=== PATIENT | male | born 1940 | race Caucasian/White ===

== ENCOUNTER 2016-09-02 16:53 | Inpatient (IN) ==
--- NOTE | 2016-09-02 18:05 | Emergency Department Note ---
Disposition Clinical Impression: Ascites, Cirrhosis, Renal failure, CHF (congestive heart failure), Anemia, Obesity, Frail elderly, Symptomatic anemia, Dyspnea, Atrial fibrillation Disposition: Admitted As Inpatient Condition: Fair General Adult HPI - General Chief complaint: ED Recheck/Abnormal Lab/Rx Stated complaint: low hgb Time Seen by Provider: 09/02/16 17:02 Source: patient, family, EMS Limitations: no limitations - History of Present Illness HPI Narrative: 76-year-old male with a history of renal failure on dialysis reports in the ED from the [place]. There is concern the patient has a very low hemoglobin as well as apparent CHF. The patient also has a known history of appetite C, liver failure , and diabetes. He patient reports he became short of breath and felt very very weak today, he could only do activity for a few minutes before having to stop and breathe. The patient sought medical attention went to the [facility] and was transferred here. The patient denies any chest pain. He does not take diuretic medication. He still makes urine. The patient has had no abdominal pain vomiting diarrhea or syncope. There is no history of difficulty moving the arms or legs independently. No confusion or slurred speech or strokelike concerns. The patient is not known to be anticoagulated. He denies any bloody or black material in the stool. The patient describes leg swelling as well as abdominal swelling. The patient does not usually wear oxygen. The patient does not have any history of asthma or COPD. Per reports the patient has a history of atrial fibrillation. The patient describes one loose stool today which not bloody or blackened. The patient had a recent stress test at this facility which was essentially negative. His ejection fraction was 56%. Pain Scale: 4 - Related Data Home Medications Medication Instructions Recorded Confirmed Amlodipine [Norvasc] 5 mg PO HS 08/03/15 09/02/16 Insulin ASPART [NovoLOG] 18 unit SQ TIDAC 08/03/15 09/02/16 Insulin Glargine,Hum.rec.anlog 50 unit SQ HS 08/03/15 09/02/16 [Lantus Solostar] Levothyroxine [Synthroid] 125 mcg PO QAM 08/03/15 09/02/16 Lisinopril [Zestril] 20 mg PO DAILY 08/03/15 09/02/16 Renal Vitamin [Renal Caps Softgel] 1 mg PO DAILY 08/03/15 09/02/16 Calcium Acetate [Phos-LO] 1,334 mg PO TIDWM 08/31/15 09/02/16 Terazosin [Hytrin] 10 mg PO HS 08/31/15 09/02/16 Aspirin 325 mg PO DAILY 09/02/16 09/02/16 Azelastine 0.1% Nasal [place] 2 spray NS BID 09/02/16 09/02/16 [Astelin] Capsaicin [Arthritis Pain Relief] 1 appl TP 5XD PRN 09/02/16 09/02/16 Eucerin Creme 1 appl TP BID 09/02/16 09/02/16 Gabapentin [Neurontin] 200 mg PO AD 09/02/16 09/02/16 Insulin ASPART [NovoLOG] 5 unit SQ QPM 09/02/16 09/02/16 Omeprazole [PriLOSEC] 20 mg PO DAILY 09/02/16 09/02/16 Propranolol [Inderal] 10 mg PO BID 09/02/16 09/02/16 Allergies Allergy/AdvReac Type Severity Reaction Status Date / Time venom-honey bee Allergy Severe Anaphylaxis Verified 08/03/15 10:53 [bee venom (honey bee)] felodipine AdvReac LACK OF Verified 08/03/15 10:53 THERAPY gabapentin AdvReac See Verified 09/02/16 17:02 Comments isosorbide AdvReac se Verified 09/02/16 18:52 metformin AdvReac KIDNEY Verified 08/03/15 10:53 DAMAGE metoprolol AdvReac LACK OF Verified 08/03/15 10:53 THERAPY All systems ED: reviewed and negative except as stated. Past Medical History - Past Medical History Medical history: Reports: cancer, cirrhosis, diabetes, dialysis, hepatitis, hypertension, liver disease, other Surgical history: Reports: appendectomy, orthopedic, other, other (Dialysis shunt, TURP) Psychiatric history: Reports: no psych history, other - Social History Smoking Status: Current every day smoker Smokeless Tobacco Status: No Alcohol use: Reports: none Drug use: Reports: none Physical Exam - General Limitations: no limitations General appearance: alert, in no apparent distress - Head Head exam: atraumatic, normocephalic, normal inspection - Eye Eye exam: Present: normal appearance, PERRL, EOMI - ENT ENT exam: normal exam, normal oropharynx, mucous membranes moist - Neck Neck exam: Present: normal inspection, full ROM, trachea midline - Chest Chest inspection: Present: symmetric chest wall rise. Absent: tenderness - Respiratory Respiratory exam: Present: normal lung sounds bilaterally. Absent: respiratory distress, prolonged expiratory phase - Cardiovascular Cardiovascular exam: Present: regular rate, irregular rhythm - Abdominal Exam Abdominal exam: Present: soft, Non-Tender, normal bowel sounds, ascites. Absent : tenderness, distention, guarding, rebound, rigidity - Extremities Exam Extremities exam: Present: full ROM, normal capillary refill, pedal edema, other (Chronic venous stasis changes). Absent: tenderness, joint swelling, calf tenderness - Expanded Lower Extremity Exam Lower leg exam: Absent: Homans' sign Neurovascular/Tendon exam: Present: normal capillary refill, extremity cold to touch. Absent: motor deficit, sensory deficit, tendon deficit, pallor - Back Exam Back exam: Present: normal inspection, full ROM, other. Absent: tenderness, CVA tenderness (R), CVA tenderness (L), vertebral tenderness - Neurological Exam Neurological exam: Present: alert, oriented X3, CN II-XII intact. Absent: motor sensory deficit - Psychiatric Psychiatric exam: Present: normal affect, normal mood - Skin Skin exam: Present: warm, dry, intact, normal color. Absent: rash, cyanosis, diaphoresis, erythema, pallor, mottled Course Vital Signs Temperature 0 F L 09/02/16 17:03 Pulse Rate 79 09/02/16 17:03 Respiratory Rate 16 09/02/16 17:03 Blood Pressure 139/52 09/02/16 17:03 O2 Sat by Pulse Oximetry 96 09/02/16 17:03 Temperature 98.8 F 09/02/16 20:33 Pulse Rate 79 09/02/16 17:03 Respiratory Rate 16 09/02/16 20:33 Blood Pressure 136/54 09/02/16 20:33 O2 Sat by Pulse Oximetry 96 09/02/16 17:03 Oxygen Delivery Oxygen Delivery Room Air Medical Decision Making - [facility] Narrative Medical decision making narrative: The patient is elderly, he has multiple medical problems including cirrhosis, CHF, as well as chronic renal failure on dialysis, his hemoglobin is 7.2 and he is significantly symptomatic from a dyspnea standpoint. The patient appears to have been element of CHF as well. His EKG shows atrial fibrillation rate controlled with no acute ischemic changes, his initial troponin was negative. Lab testing done at the [place] which was reviewed as well as chest x-ray report suggests CHF. Based on the patient's significant symptomatology with dyspnea on exertion particularly, it appears that he has significant symptomatic anemia. Based on the patient's age and comorbidities and symptomatology I think could be appropriate to admit the patient to the hospital. I discussed the case with the hospitalist electronics manufacturer who has accepted the patient to their care. - Lab Data Lab results reviewed: Yes I reviewed the patient's lab results. Lab Results 09/02/16 Range/Units 18:18 PT 12.9 H (9.4-12.1) Seconds INR 1.2 APTT 31.4 (26.0-36.0) Seconds - Radiology Data Radiology results reviewed: Yes I reviewed the patient's radiology results.
[2016-09-02 18:37] LABS: INR 1.2; Prothrombin Time 12.9 Seconds (9.4-12.1)
[2016-09-02 18:39] LABS: Activated Partial Thrombo Time 31.4 Seconds (26.0-36.0)
--- NOTE | 2016-09-02 21:05 | Internal Med History&Physical ---
Date of Encounter: 09/02/16 Time of Encounter: 21:03 Assessment and Plan (1) Anemia Current visit: No Status: Acute denies any bleeding in the stool, no tracey or hematemesis. will check stool for occult, repeat cbc tomm. will send anemia panel, this may be worsening anemia of chronic disease 2/2 his ESRD. Qualifiers: Anemia type: unspecified type Qualified Code(s): D64.9 - Anemia, unspecified (2) ESRD (end stage renal disease) Current visit: No Status: Chronic on HD M-w-F has leg edema and ascitis but not in respiratory distress at this time. will consult renal for maintenance HD. (3) Chronic atrial fibrillation Current visit: No Status: Chronic will continue home meds. currently stable (4) Cirrhosis of liver Current visit: No Status: Chronic Qualifiers: Hepatic cirrhosis type: unspecified hepatic cirrhosis Ascites presence: without ascites Qualified Code(s): K74.60 - Unspecified cirrhosis of liver (5) History of hepatitis C Current visit: No Status: Chronic (6) CHF (congestive heart failure) Current visit: Yes Status: Acute CXR from [facility] shows signs of CHF, however clinically patient is in no acute rspirtaory distress. his next HD is tomm, not on lasix at home , he says it was stopped due to worsening ESRD. had nuclear stress test on 2015, EF of 56%, will order another ECHO. Qualifiers: Congestive heart failure type: unspecified congestive heart failure type Congestive heart failure chronicity: acute on chronic Qualified Code(s): I50.9 - Heart failure, unspecified Internal Medicine - H&P: HPI Chief complaint: sob Admitted From: Hospital to Hospital Transfer Plans for Post Hospital Care: Home History of present illness: Mr. Betts is a 76 year old male with a history of renal failure on dialysis reports in the ED from the [facility] for very low hemoglobin as well as apparent CHF. The patient also has a known history of hepC, liver failure, and diabetes. He patient reports he became short of breath and felt very very weak today, he could only do activity for a few minutes before having to stop and breathe. The patient sought medical attention went to the [facility] and was transferred here. The patient denies any chest pain. He does not take diuretic medication. He still makes urine. The patient has had no abdominal pain vomiting diarrhea or syncope. There is no history of difficulty moving the arms or legs independently. No confusion or slurred speech or strokelike concerns. The patient is not known to be anticoagulated. He denies any bloody or black material in the stool. The patient does not usually wear oxygen. The patient does not have any history of asthma or COPD. Per reports the patient has a history of atrial fibrillation. The patient describes one loose stool today which not bloody or blackened. The patient had a recent stress test at this facility which was essentially negative. His ejection fraction was 56%. Work up at [facility] showed Hb of 7.2 and CXR that showed CHF and thus was transferred here. At the time of my assessment, patient is sitting up in bed comfortably without any acute respiratory distress talking in full sentences and reports that he feels better. Past Med Surg Social Fam HX - Past Medical History Medical history: cancer, cirrhosis, diabetes, dialysis, hepatitis, hypertension , liver disease, other Psychiatric history: no psych history, other - Past Surgical History Surgical History: appendectomy, orthopedic, other, other (Dialysis shunt, TURP) - Social History Smoking Status: Current every day smoker Smokeless Tobacco Status: No Alcohol use: none Drug use: none Internal Medicine - H&P: Meds Amlodipine [Norvasc] 5 mg PO HS 08/03/15 [History] Insulin ASPART [NovoLOG] 18 unit SQ TIDAC 08/03/15 [History] Insulin Glargine,Hum.rec.anlog [Lantus Solostar] 50 unit SQ HS 08/03/15 [History ] Levothyroxine [Synthroid] 125 mcg PO QAM 08/03/15 [History] Lisinopril [Zestril] 20 mg PO DAILY 08/03/15 [History] Renal Vitamin [Renal Caps Softgel] 1 mg PO DAILY 08/03/15 [History] Calcium Acetate [Phos-LO] 1,334 mg PO TIDWM 08/31/15 [History] Terazosin [Hytrin] 10 mg PO HS 08/31/15 [History] Aspirin 325 mg PO DAILY 09/02/16 [History] Azelastine 0.1% Nasal [place] [Astelin] 2 spray NS BID 09/02/16 [History] Capsaicin [Arthritis Pain Relief] 1 appl TP 5XD PRN 09/02/16 [History] Eucerin Creme 1 appl TP BID 09/02/16 [History] Gabapentin [Neurontin] 200 mg PO AD 09/02/16 [History] Insulin ASPART [NovoLOG] 5 unit SQ QPM 09/02/16 [History] Omeprazole [PriLOSEC] 20 mg PO DAILY 09/02/16 [History] Propranolol [Inderal] 10 mg PO BID 09/02/16 [History] Allergies venom-honey bee [bee venom (honey bee)] Allergy (Severe, Verified 08/03/15 10:53 ) Anaphylaxis felodipine Adverse Reaction (Verified 08/03/15 10:53) LACK OF THERAPY gabapentin Adverse Reaction (Verified 09/02/16 17:02) See Comments isosorbide Adverse Reaction (Verified 09/02/16 18:52) se va list metformin Adverse Reaction (Verified 08/03/15 10:53) KIDNEY DAMAGE metoprolol Adverse Reaction (Verified 08/03/15 10:53) LACK OF THERAPY All Systems PM: A 10-system review of systems was performed and is negative for pertinent findings except as documented above in the HPI. - Constitutional Constitutional: no chills, no fever(s), no night sweats - EENT Eyes: no change in vision, no discharge, no pain, no photophobia Ears: no ear discharge, no ear pain, no tinnitus Nose, mouth and throat: no dysphagia, no nasal discharge, no neck pain, no sore throat - Cardiovascular Cardiovascular ROS IM: no chest pain, no diaphoresis, no dyspnea, no lightheadedness, no palpitations, no syncope - Respiratory Respiratory: no cough, no dyspnea, no wheezing, no excessive phlegm production - Gastrointestinal Gastrointestinal: no abdominal pain, no diarrhea, no hematemesis, no hematochezia, no melena, no nausea, no vomiting - Musculoskeletal Musculoskeletal ROS IM: no numbness, no tingling - Integumentary Integumentary IM: no rash, no unusual bruising - Neurological Neurological ROS: no confusion, no convulsions, no focal weakness, no numbness, no tingling, no tremor(s) - Constitutional Vitals: Temp Pulse Resp BP Pulse Ox 98.8 F 79 16 136/54 96 09/02/16 20:33 09/02/16 17:03 09/02/16 20:33 09/02/16 20:33 09/02/16 17:03 General appearance: Present: A&O X 3, no acute distress Exam: neck- supple chest- b/l basal creptns, no wheezing cvs-s1 and s2, no m/r/g abd-soft, non tender, bs are present ext- b/l lower leg edema. neuro - no focal defecits.
[2016-09-02] MEDS ORDERED: Naloxone 0.4 MG/ML INJ IVP PRN (21:29)
[2016-09-02] MEDS ORDERED: D5% in Water 1,000 ML IVC PRN (21:34)
[2016-09-02] MEDS ORDERED: *HR* Dextrose 50 % in Water (Syg) 50 ML SYRINGE IVP PRN (21:34)
[2016-09-02] MEDS ORDERED: Dextrose Gel 15 GM PO PRN ×2 (21:34)
[2016-09-02] MEDS: amLODIPine 5 MG TABLET PO SCH (22:41)
[2016-09-02] MEDS: Azelastine 0.1% Nasal Spray 30 ML BOTTLE NS SCH ×2 (22:41→22:47)
[2016-09-03 05:11] LABS: Basophils % 0.4 %; Eosinophils # 0.2 K/mcL (0.0-0.6); Hematocrit 22.2 % (37.5-50.1); Hemoglobin 7.2 g/dL (12.9-16.9); Immature Granulocytes % 0.6 % (0-4); Lymphocytes # 1.1 K/mcL (0.6-4.6); Lymphocytes % 20.2 %; Mean Corpuscular HGB Conc 32.4 g/dL (31.6-35.5); Mean Corpuscular Hemoglobin 33.5 pg (28.0-33.3); Mean Corpuscular Volume 103.3 fL (83.0-100.0); Mean Platelet Volume 9.5 fL (9.4-12.4); Monocytes # 0.4 K/mcL (0.0-1.3); Monocytes % 6.6 %; Neutrophils # 3.7 K/mcL (1.6-8.9); Platelet Count 108 K/mcL (140-400); Red Blood Count 2.15 M/mcL (4.19-5.50); Red Cell Distribution Width 19.1 % (11.5-14.5); Segmented Neutrophils % 69.2 %
[2016-09-03 05:29] LABS: Albumin 3.2 g/dL (3.5-5.0); Albumin/Globulin Ratio 1.1 (1.1-2.2); Bilirubin,Direct 0.4 mg/dL (0.0-0.5); Bilirubin,Indirect 0.6 mg/dL (0.0-1.2); Calcium 8.9 mg/dL (8.6-10.8); Magnesium 1.9 mg/dL (1.6-2.6); Phosphorous 7.2 mg/dL (2.3-4.7); Potassium 5.8 mEq/L (3.5-4.5); Total Protein 6.2 g/dL (6.0-8.3)
[2016-09-03] MEDS: *HR* Heparin 5,000 UNIT/ML VIAL SQ SCH ×3 (05:36→16:44)
[2016-09-03 06:01] LABS: Folate 16.1 ng/mL (7.0-31.4)
[2016-09-03] MEDS: Insulin LISPRO 300 UNITS/3 ML VIAL SQ SCH ×7 (08:41→22:12)
[2016-09-03] MEDS: Aspirin 325 MG TABLET PO SCH (08:41)
[2016-09-03] MEDS: Calcium Acetate 667 MG CAPSULE PO SCH ×3 (08:41→17:20)
--- NOTE | 2016-09-03 10:04 | ECHO - Doppler Report ---
Echocardiogram Name: Juancho Betts Date of Study: 09/03/2016 Date: 1940 Ht: 71.0 in Medical Record#: [id number] Age: 76 Wt: 255.0 lb Gender: Male BSA: 2.34 Order #: [id number] Location: [facility] Room #: [id number] Reading Physician: Miri Sue DO [employer] Web Developer: Souleymane Beaver RDCS Ordering Physician: Ronit Stallworth MD Primary Physician: [facility] Indications: Congestive heart failure Impressions: LVEF 65%. Normal left ventricular size and systolic function. Indeterminate left ventricular diastolic function RV is moderate to severely dilated by RVOT and Apical dimensions. Function appears normal. Lat S crispin is normal. Septal movement in PSAX is normal. The aortic valve in the PSAX view is not perfectly seen but may resemble a bicuspid morphology. Mild mitral regurgitation. Moderate tricuspid regurgitation. Mild pulmonic regurgitation. Estimated RVSP was 76 mmHg. Severe pulmonary hypertension. When compared to prior study, 04/26/2015, RV dilation and degree of pulmonary hypertension are new findings. The aortic valve on prior study was not well visualized. Left Ventricular Wall Motion: Rest Echo Findings All wall segments showed normal motion. Findings: Study Quality * Technically adequate exam. ECG Findings * Atrial fibrillation. Left Ventricle * LVEF 65%. * Indeterminate diastolic function. * Normal LV chamber size, wall thickness and function. Aorta * Normally sized aortic root. Mitral Valve * Mild mitral annular calcification * No mitral stenosis. * Mild mitral regurgitation. Aortic Valve * No aortic regurgitation. * Aortic valve not well visualized. * Not well visualized but may resemble a bicuspid morphology. * No aortic stenosis. Tricuspid Valve * Tricuspid valve not well visualized. * Moderate tricuspid regurgitation. * Estimated RA pressure is 15 mmHg. * Estimated RVSP is 76 mmHg. * Severe pulmonary hypertension. Pulmonic Valve * Pulmonic valve is not well visualized. * No pulmonic stenosis. * Mild pulmonic regurgitation. Pulmonary Artery * Pulmonary artery not well visualized. Right Atrium * Moderately dilated right atrium. Left Atrium * Severely dilated left atrium. Interatrial Septum * No evidence of PFO by color Doppler. Pericardium * There is no pericardial effusion present. IVC * The IVC is dilated. * < 50% respiratory change. Right Ventricle * RV is moderate to severely dilated by RVOT and Apical dimensions. Function appears normal. Lat S crispin is normal. Septal movement in PSAX is normal. History Hypertension Diabetes History of CAD/PTCA Myocardial Infarction Congestive Heart Failure Valvular Disease 04/26/15 a Previous Echo was performed. Measurements: BP: 130/ 53 2D Normal Values RVIDd: 3.88 cm <2.7 cm IVSd: 1.20 cm 0.6 - 1.0 cm LVIDd: 5.26 cm 3.7 - 5.6 cm LVPWd: 1.09 cm 0.6 - 1.1 cm LVIDs: 3.29 cm 1.5 - 3.6 cm AO: 2.60 cm < 4.0 cm LA: 5.20 cm 2.0 - 4.0cm %FS: 37.50 cm >25 % LA volume: 103 Mitral Valve Peak Velocity 1.86 m/sec Mean Velocity:.99 m/sec Peak Grad:14.00 mmHg Mean Grad:5.00 mmHg Pressure Time:73.00 msec Valve Area:3.01 cm2 Peak E:1.50 m/sec Peak E' Lat Crispin:10.7 cm/s Peak E' Med Crispin:8.16 cm/s E/E' Lat Ratio:14 E/E' Med Ratio:18.4 Tricuspid Valve TV Regurg Peak Grad: 61.00mmHg TV Regurg Peak Crispin: 3.89m/sec Updated by Miri Sue on 09/03/2016 9:57:27 AM electronically signed on 09/03/2016 10:01:05 AM with status of Final Wall Motion [place]: 1=Normal, 2=Hypokinesis, 3=Akinesis, 4=Dyskinesis, 5=Aneurysmal, 6=Hyperkinetic, X=Not Visualized (Blank)=Missing
--- NOTE | 2016-09-03 10:54 | Nephrology Consult Note ---
Date of Encounter: 09/03/16 Time of Encounter: 10:00 Assessment and Plan (1) ESRD (end stage renal disease) Current Visit: Yes Status: Chronic Patient receiving HD M, W, and F. He has no reports of missing any sessions, will continue HD per his normal schedule. HD today (2) Anemia Current Visit: No Status: Acute Patient current anemia likely chronic in nature given past hemoglobin levels. Patient was complaining of some symptoms, but not currently. Exact etiology of patient anemia unclear currently, no complaints of melena or hematochezia, no complaints of hemoptysis, no complaints of hematuria. Patient decreased hemoglobin could be related to dilution, iron deficiency, folate/B12 deficiency , intravascular hemolysis/consumption, ESRD, or any combination thereof. Increase MCV is suggestive of a folate/B12 deficiency though initial B12 and folate levels were normal. We will obtain records from [facility] dialysis center to evaluate whether patient has been receiving erythropoietin or blood with his transfusions and to also evaluate his historic hemoglobin level Check LDH level Obtain MMA to more closely evaluate folate/B12 We will give dose of 1000 mg IM B12 Qualifiers: Anemia type: other cause Other causes of anemia: chronic disease, kidney Qualified Code(s): N18.9 - Chronic kidney disease, unspecified; D63.1 - Anemia in chronic kidney disease (3) Hyperkalemia Current Visit: Yes Status: Acute Phosphate at 5.8, no concerning EKG findings noted. Patient elevated potassium level will be addressed during dialysis today (4) Hyperphosphatemia Current Visit: Yes Status: Acute Patient taking calcium acetate (PhosLo) at home. He demonstrates elevated a phosphate level with labs performed today. Will continue patient home Phos-Lo, will consider increasing his dose if improvement in patient phosphate level is not observed (5) CHF (congestive heart failure) Current Visit: Yes Status: Acute Patient complaint of orthopnea likely related to his abdomen. Increased size and tension and abdomen likely causing pressure on diaphragm unlined down causing orthopnea like symptoms, lungs otherwise clear on auscultation. Patient will have some fluid removed during dialysis today. Will obtain an US of patient abdomen to better assess current fluid in abdomen, if fluid is present consider a paracentesis to help alleviate patient discomfort Qualifiers: Congestive heart failure type: unspecified congestive heart failure type Congestive heart failure chronicity: acute on chronic Qualified Code(s): I50.9 - Heart failure, unspecified (6) Cirrhosis of liver Current Visit: No Status: Chronic Likely due to patient hepatitis C Currently no acute issues Per primary team Qualifiers: Hepatic cirrhosis type: unspecified hepatic cirrhosis Ascites presence: without ascites Qualified Code(s): K74.60 - Unspecified cirrhosis of liver (7) Diabetes Current Visit: Yes Status: Acute Blood sugar control per primary team Qualifiers: Diabetes mellitus type: type 2 Diabetes mellitus complication status: with kidney complications Diabetes mellitus complication detail: with chronic kidney disease Diabetes mellitus group home insulin use: with group home use Chronic kidney disease stage: on chronic dialysis Qualified Code(s): E11.22 - Type 2 diabetes mellitus with diabetic chronic kidney disease; N18.6 - End stage renal disease; 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 Betts is a 76 year old gentleman with prior medical history of liver cirrhosis, diabetes, hepatitis C, and end-stage renal disease who was transferred to [facility] from the [place] having been found to be anemic at 7.2. He was reportedly symptomatic at the time of transfer and presentation to [facility]. Currently she has no significant complaints other than some orthopnea and complaints of 8-9 pounds of fluid gain in 1.5 weeks. He is a chronic HD patient who sees Dr. Walsh at [facility] dialysis center for dialysis Thursday, Thursday, and Fridays. He states he has not missed appointment, but does feel as if none of fluid is removed during each dialysis session. He feels this is contributed to his current fluid status. When asked about Aranesp or erythropoietin he is unsure but does not feel as if he has been receiving any. He also denies receiving additional blood during dialysis. Past Med Surg Social Fam HX - Past Medical History Medical history: cancer, cirrhosis, diabetes, dialysis, hepatitis, hypertension , liver disease, other Psychiatric history: no psych history, other - Past Surgical History Surgical History: appendectomy, orthopedic, other, other (Dialysis shunt, TURP) - Social History Smoking Status: Current every day smoker Smokeless Tobacco Status: No Alcohol use: none Drug use: none Medications and Allergies Amlodipine [Norvasc] 5 mg PO HS 08/03/15 [History] Insulin ASPART [NovoLOG] 18 unit SQ TIDAC 08/03/15 [History] Insulin Glargine,Hum.rec.anlog [Lantus Solostar] 50 unit SQ HS 08/03/15 [History ] Levothyroxine [Synthroid] 125 mcg PO QAM 08/03/15 [History] Lisinopril [Zestril] 20 mg PO DAILY 08/03/15 [History] Renal Vitamin [Renal Caps Softgel] 1 mg PO DAILY 08/03/15 [History] Calcium Acetate [Phos-LO] 1,334 mg PO TIDWM 08/31/15 [History] Terazosin [Hytrin] 10 mg PO HS 08/31/15 [History] Aspirin 325 mg PO DAILY 09/02/16 [History] Azelastine 0.1% Nasal [place] [Astelin] 2 spray NS BID 09/02/16 [History] Capsaicin [Arthritis Pain Relief] 1 appl TP 5XD PRN 09/02/16 [History] Eucerin Creme 1 appl TP BID 09/02/16 [History] Insulin ASPART [NovoLOG] 5 unit SQ QPM 09/02/16 [History] Allergies venom-honey bee [bee venom (honey bee)] Allergy (Severe, Verified 08/03/15 10:53 ) Anaphylaxis felodipine Adverse Reaction (Verified 08/03/15 10:53) LACK OF THERAPY gabapentin Adverse Reaction (Verified 09/02/16 17:02) See Comments isosorbide Adverse Reaction (Verified 09/02/16 18:52) [facility] list metformin Adverse Reaction (Verified 08/03/15 10:53) KIDNEY DAMAGE metoprolol Adverse Reaction (Verified 08/03/15 10:53) LACK OF THERAPY Review of Systems Constitutional: weakness, weight gain, no anorexia, no chills, no excessive sweating, no fatigue, no weight loss Nose, mouth and throat: no dizziness, no headache(s) Cardiovascular: dyspnea, edema, orthopnea, pedal edema, no chest pain, no chest pain at rest, no irregular heart rhythm Respiratory: as per HPI, chest congestion, no cough, no dyspnea, no hemoptysis, no wheezing, no pain on inspiration Gastrointestinal: diarrhea, no abdominal pain, no coffee ground emesis, no constipation, no hematochezia, no nausea, no vomiting Musculoskeletal: no muscle weakness, no numbness Integumentary: no hirsutism, no striae Psychiatric: no depression, no difficulty concentrating Exam - Vital Signs Vital signs: Initial Vital Signs Temp Pulse Resp BP Pulse Ox 0 F L 79 16 139/52 96 09/02/16 17:03 09/02/16 17:03 09/02/16 17:03 09/02/16 17:03 09/02/16 17:03 Intake and Output 09/02/16 09/03/16 09/03/16 23:59 07:59 15:59 Intake Total 240 / 240 Balance 240 / 240 Intake: Oral 240 / 240 Other: Meal Breakfast Percent of Meal Consumed 95% - General Appearance General appearance: well-developed, well-nourished, appears started age, obese EENT: ATNC, PERRL, mucous membranes moist Neck: no JVD, supple Respiratory: no kyphosis, no scoliosis, clear Cardiology: no murmurs, no rub, no gallops, edema (2+ bilateral lower extremities), regular rate, regular rhythm, normal S1, normal S2 - Dialysis Access Dialysis Vascular Access: Arteriovenous Fistula thrill: Yes bruit: Yes Gastrointestinal: normoactive bowel sounds, no tenderness, no guarding, no organomegaly, no masses, obese, distended (Tense abdomen, no fluid wave appreciated) Integumentary: no rash, warm and dry Neurologic: no focal deficit, no asterixis, alert and oriented x3, reflexes 2+ and symmetric, gait normal, strength 5/5 Musculoskeletal: no deformities, no erythema, no cyanosis, no clubbing Psychiatric: mood/affect appropriate, cooperative Results - Lab Results 09/03/16 05:02 09/03/16 05:02 Most recent lab results Calcium 8.9 mg/dL (8.6-10.8) 09/03/16 05:02 Phosphorus 7.2 mg/dL (2.3-4.7) H 09/03/16 05:02 Magnesium 1.9 mg/dL (1.6-2.6) 09/03/16 05:02 Consult Discharge Plan - Plan Instructions: Heart Failure (DC), Atrial Fibrillation (DC), Cirrhosis (DC), Cirrhosis (GEN), Acute Kidney Injury (DC), Acute Kidney Injury (GEN), Urinary Tract Infection in Men (DC), Hemodialysis (DC), Hemodialysis (GEN), Dialysis Diet (DC), Dialysis Diet (GEN), Diabetes Mellitus Type 2 in Adults (DC), Viral Hepatitis C (DC), Viral Hepatitis C (GEN), Arteriovenous Fistula Creation for Hemodialysis (DC), Chronic Hypertension (DC), Hypotension (DC), Anemia (GEN), Viral Hepatitis C, 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
[2016-09-03] MEDS: Azelastine 0.1% Nasal Spray 30 ML BOTTLE NS SCH (11:59)
[2016-09-03] MEDS: Insulin DETEMIR 100 UNIT/ML X5UNITS SQ SCH (12:07)
[2016-09-03] MEDS ORDERED: Cyanocobalamin (B-12) 1,000 MCG/ML VIAL IM ONE (13:10)
--- NOTE | 2016-09-03 14:59 | Internal Med Progress Note ---
Date of Encounter: 09/03/16 Time of Encounter: 09:30 - Assessment and plan (1) Anemia Current Visit: No Status: Acute Assessment and plan: Pt's hemoglobin is lower than last check here (though he has had hemoglobin this low before). MCV is over 100. Will make sure B12 is checked. Transfusion per renal if needed or if he has other signs/symptoms. Qualifiers: Anemia type: other cause Other causes of anemia: chronic disease, kidney Qualified Code(s): N18.9 - Chronic kidney disease, unspecified; D63.1 - Anemia in chronic kidney disease (2) ESRD (end stage renal disease) Current Visit: Yes Status: Chronic Assessment and plan: Dialysis per renal service. (3) History of hepatitis C Current Visit: No Status: Chronic Assessment and plan: Currently does not appear to have any acute issues. (4) Hypertension Current Visit: No Status: Chronic Assessment and plan: Monitoring at this time. Meds adjusted as needed. Qualifiers: Hypertension type: essential hypertension Qualified Code(s): I10 - Essential (primary) hypertension (5) Diabetes Current Visit: Yes Status: Acute Assessment and plan: Home insulin regimen started and accucheck monitoring. 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 Betts is currently admitted for anemia and fluid overload with ESRD. He is moderate to high risk due to potential for worsening respiratory and cardiac status. Mr. Betts feels a little better after getting some Lasix. He still makes some urine. He feels he has been retaining fluid for a period of time and it finally became too much for him. No CP. Abd feels distended. Less dyspneic today. To have dialysis today (M-W-F). - Constitutional Vitals: Temp Pulse Resp BP Pulse Ox 97.8 F 77 16 129/52 98 09/03/16 11:42 09/03/16 11:42 09/03/16 11:42 09/03/16 11:42 09/03/16 11:42 General appearance: Present: A&O X 3, pleasant, answers questions appropriately - Head Head exam: Present: normocephalic - Eye Eye exam: Present: EOMI, conjuntiva pink - ENT ENT exam: Present: mucous membranes moist - Respiratory Respiratory exam: Present: decreased breath sounds, rales Additional comments: Scattered rales in bases. - Cardiovascular Cardiovascular exam: Present: RRR. Absent: tachycardia - GI/Abdominal GI/Abdominal exam: Present: distended, soft. Absent: tenderness - Extremities Exam Extremities exam: Present: pedal edema, warm - Neurological Exam Neurological exam: Present: alert, oriented X3 - Skin Skin exam: Present: dry, warm Internal Medicine: Result - Labs CBC & Chem 7: 09/03/16 05:02 09/03/16 05:02 - ABG Interpretation ABG results: PT/INR, D-dimer PT 12.9 Seconds (9.4-12.1) H 09/02/16 18:18 - Impressions Impressions Abdomen Ultrasound 09/03/16 13:30 IMPRESSION: No ascites. D/ / Freda Mccoy MD / Freda Mccoy MD Interpreting Provider: Freda Mccoy MD Consult Discharge Plan - Plan Instructions: Heart Failure (DC), Atrial Fibrillation (DC), Cirrhosis (DC), Cirrhosis (GEN), Acute Kidney Injury (DC), Acute Kidney Injury (GEN), Urinary Tract Infection in Men (DC), Hemodialysis (DC), Hemodialysis (GEN), Dialysis Diet (DC), Dialysis Diet (GEN), Diabetes Mellitus Type 2 in Adults (DC), Viral Hepatitis C (DC), Viral Hepatitis C (GEN), Arteriovenous Fistula Creation for Hemodialysis (DC), Chronic Hypertension (DC), Hypotension (DC), Anemia (GEN), Viral Hepatitis C, Gold Leaf Gilder (GEN) [facility]errals: [facility] [Primary Care Provider] -
[2016-09-03] MEDS ORDERED: 0.9 % Sodium Chloride 250 ML IVC PRN (15:41)
[2016-09-03] MEDS ORDERED: 0.9 % Sodium Chloride 1,000 ML PRIME SCH (16:00)
[2016-09-03] MEDS ORDERED: Azelastine 0.1% Nasal Spray 30 ML BOTTLE NS PRN (16:07)
[2016-09-03] MEDS: Lisinopril 20 MG TABLET PO SCH (16:36)
--- NOTE | 2016-09-03 19:46 | Electrocardiograph Report ---
[address] [place] [address] Test Date: 2016-09-02 Pat Name: Juancho Betts Department: 105 Room: 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
[2016-09-03] MEDS: amLODIPine 5 MG TABLET PO SCH (22:01)
[2016-09-03] MEDS: LATANOPROST OP SCH (22:20)
[2016-09-04] MEDS: *HR* Heparin 5,000 UNIT/ML VIAL SQ SCH ×2 (05:36→17:21)
[2016-09-04] MEDS: Aspirin 325 MG TABLET PO SCH (08:26)
[2016-09-04] MEDS: Insulin DETEMIR 100 UNIT/ML X5UNITS SQ SCH (08:26)
[2016-09-04] MEDS: Calcium Acetate 667 MG CAPSULE PO SCH ×3 (08:26→17:21)
[2016-09-04] MEDS: Insulin LISPRO 300 UNITS/3 ML VIAL SQ SCH ×6 (08:27→17:24)
[2016-09-04] MEDS: Lisinopril 20 MG TABLET PO SCH (08:27)
[2016-09-04 09:43] LABS: Hematocrit 21.8 % (37.5-50.1); Hemoglobin 7.4 g/dL (12.9-16.9); Mean Corpuscular HGB Conc 33.9 g/dL (31.6-35.5); Mean Corpuscular Hemoglobin 34.7 pg (28.0-33.3); Mean Corpuscular Volume 102.3 fL (83.0-100.0); Mean Platelet Volume 10.9 fL (9.4-12.4); Platelet Count 101 K/mcL (140-400); Red Blood Count 2.13 M/mcL (4.19-5.50); Red Cell Distribution Width 19.2 % (11.5-14.5)
[2016-09-04 09:55] LABS: Calcium 8.9 mg/dL (8.6-10.8); Potassium 5.8 mEq/L (3.5-4.5)
[2016-09-04] MEDS ORDERED: *HR* LORazepam 2 MG/ML VIAL IVP ONE (12:36)
[2016-09-04] MEDS ORDERED: *HR* HYDROcodone/Acet 5/325 mg TABLET PO PRN (13:09)
--- NOTE | 2016-09-04 14:10 | Nephrology Progress Note ---
Date of Encounter: 09/04/16 Time of Encounter: 10:10 - Assessment and Plan (1) ESRD (end stage renal disease) Current Visit: Yes Status: Chronic Patient receiving HD M, W, and F. He has no reports of missing any sessions, will continue HD per his normal schedule. Patient had HD yesterday with an estimated removal of 2 L fluid Will continue with planned HD tomorrow (2) Anemia Current Visit: No Status: Acute Patient current anemia likely chronic in nature given past hemoglobin levels, normal iron studies, normal B12, and normal folate. Could consider iron supplementation in the future as iron studies are on the low-side of normal. LDH was normal, indicating that there is less possibility of intravascular hemolysis. His Hgb did improve from 7.2 -> 7.4 indicating some degree of dilution contributing to his anemia, but still not significantly improved. Will order 1 unit pRBCs to be given during HD tomorrow Will give 1 dose of Aranesp 40 mg weekly Obtain MMA to more closely evaluate folate/B12 Qualifiers: Anemia type: other cause Other causes of anemia: chronic disease, kidney Qualified Code(s): N18.9 - Chronic kidney disease, unspecified; D63.1 - Anemia in chronic kidney disease (3) Hyperkalemia Current Visit: Yes Status: Acute Potassium at 5.8, no concerning EKG findings noted. His potassium is the same as it was prior to HD yesterday. Will address with HD tomorrow will continue to monitor with daily labs (4) Hyperphosphatemia Current Visit: Yes Status: Acute Patient taking calcium acetate (PhosLo) at home. He demonstrates elevated a phosphate level with labs performed today. Will continue patient home Phos-Lo, will consider increasing his dose if improvement in patient phosphate level is not observed Will recheck phosphate in the morning (5) CHF (congestive heart failure) Current Visit: Yes Status: Acute Patient complaint of orthopnea likely related to his abdomen. Increased size and tension and abdomen likely causing pressure on diaphragm when lying down causing orthopnea like symptoms, lungs otherwise clear on auscultation. Patient had 2 L removed yesterday. When initially seen this morning, patient was sleeping comfortably in right lateral recumbent position. No ascites were seen in patient abdomen on CT examination Qualifiers: Congestive heart failure type: unspecified congestive heart failure type Congestive heart failure chronicity: acute on chronic Qualified Code(s): I50.9 - Heart failure, unspecified (6) Cirrhosis of liver Current Visit: No Status: Chronic Likely due to patient hepatitis C Currently no acute issues Per primary team Qualifiers: Hepatic cirrhosis type: unspecified hepatic cirrhosis Ascites presence: without ascites Qualified Code(s): K74.60 - Unspecified cirrhosis of liver (7) Diabetes Current Visit: Yes Status: Acute Blood sugar control per primary team Qualifiers: Diabetes mellitus type: type 2 Diabetes mellitus complication status: with kidney complications Diabetes mellitus complication detail: with chronic kidney disease 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 He also states that he has had continued shortness of breath. He also reports having the continued sensation of water accumulating in his back, calves, and thighs. He underwent HD yesterday and had 2 L of fluid removed and appears to have some improvement in his edema today. Objective - Vital Signs Vital signs: Vital Signs Temp Pulse Resp BP Pulse Ox 09/04/16 12:00 94 09/04/16 11:56 98.1 F 53 18 98/48 94 09/04/16 07:59 98.2 F 67 18 118/49 94 09/04/16 05:28 98.5 F 85 18 117/55 97 09/04/16 00:52 98.4 F 66 18 121/31 97 09/03/16 22:22 97 09/03/16 21:09 98.2 F 77 18 142/50 97 09/03/16 20:30 97.1 F L 18 116/54 09/03/16 20:15 111/52 09/03/16 20:00 101/44 09/03/16 19:45 129/45 09/03/16 19:30 112/51 09/03/16 19:15 122/43 09/03/16 19:00 129/83 04/12/17 18:45 125/49 09/03/16 18:30 104/52 09/03/16 18:15 98/49 09/03/16 18:00 97.3 F L 18 110/49 09/03/16 16:32 98.3 F 62 16 131/50 100 Intake and Output 09/03/16 09/04/16 09/04/16 23:59 07:59 15:59 Intake Total 540 / 540 0 / 0 480 / 480 Output Total 1999 Balance -1460 / -1460 0 / 0 480 / 480 Intake: Oral 240 / 240 0 / 0 480 / 480 Intake, Rinseback and 300 / 300 Flushes Output: Urine 0 / 0 Total Dialysis Output 1999 Other: Meal Lunch Percent of Meal Consumed 75% # Voids 0 0 Weight 116.4 kg Blood Glucose* 203 134 130 Hemodialysis Net Fluid 2400 Removed (mL) Patient Weight 09/04/16 23:59 Weight 116.4 kg - General Appearance General appearance: Present: well-developed, well-nourished, appears started age EENT: Present: ATNC, PERRL, mucous membranes moist Neck: Present: no JVD, supple Respiratory: Present: no kyphosis, no scoliosis, clear Cardiology: Present: no murmurs, no rub, no gallops, edema (+1 in b/l LE), regular rate, regular rhythm, normal S1, normal S2 Dialysis Vascular Access: Arteriovenous Fistula thrill: Yes bruit: Yes Gastrointestinal: Present: normoactive bowel sounds, no tenderness, no guarding , no masses, obese, distended Integumentary: Present: no rash, warm and dry Additional Comments: Skin on b/l UE appears more wrinkled than yesterday Neurologic: Present: no focal deficit, no asterixis, alert and oriented x3, strength 5/5 Musculoskeletal: Present: no deformities, no erythema, no cyanosis, no clubbing Psychiatric: Present: mood/affect appropriate, cooperative - Lab 09/04/16 09:34 09/04/16 09:34 Most recent lab results Calcium 8.9 mg/dL (8.6-10.8) 09/04/16 09:34 Phosphorus 7.2 mg/dL (2.3-4.7) H 09/03/16 05:02 Magnesium 1.9 mg/dL (1.6-2.6) 09/03/16 05:02 Consult Discharge Plan - Plan Instructions: Heart Failure (DC), Atrial Fibrillation (DC), Cirrhosis (DC), Cirrhosis (GEN), Acute Kidney Injury (DC), Acute Kidney Injury (GEN), Urinary Tract Infection in Men (DC), Hemodialysis (DC), Hemodialysis (GEN), Dialysis Diet (DC), Dialysis Diet (GEN), Diabetes Mellitus Type 2 in Adults (DC), Viral Hepatitis C (DC), Viral Hepatitis C (GEN), Arteriovenous Fistula Creation for Hemodialysis (DC), Chronic Hypertension (DC), Hypotension (DC), Anemia (GEN), Viral Hepatitis C, Tire Care Manager (GEN) [facility]errals: [facility] [Primary Care Provider] -
[2016-09-04] MEDS: LATANOPROST OP SCH (20:16)
[2016-09-04] MEDS: amLODIPine 5 MG TABLET PO SCH (20:20)
--- NOTE | 2016-09-04 20:33 | Internal Med Progress Note ---
Date of Encounter: 09/04/16 Time of Encounter: 09:00 - Assessment and plan (1) Back pain Current Visit: Yes Status: Acute Assessment and plan: Pt has had some work up at [facility]. There is concern for upper thoracic cord problem. Will do MRI T spine here today and assess. PT/OT eval. Qualifiers: Back pain location: low back pain Back pain laterality: bilateral Sciatica presence: without sciatica Qualified Code(s): M54.5 - Low back pain (2) Anemia Current Visit: No Status: Acute Assessment and plan: Hemoglobin remains low. No obvious bleeding. ? renal disease. Recheck in AM. Qualifiers: Anemia type: other cause Other causes of anemia: chronic disease, kidney Qualified Code(s): N18.9 - Chronic kidney disease, unspecified; D63.1 - Anemia in chronic kidney disease (3) ESRD (end stage renal disease) Current Visit: Yes Status: Chronic Assessment and plan: Dialysis per renal service. (4) History of hepatitis C Current Visit: No Status: Chronic Assessment and plan: Currently does not appear to have any acute issues. (5) Hypertension Current Visit: No Status: Chronic Assessment and plan: Monitoring at this time. Meds adjusted as needed. Qualifiers: Hypertension type: essential hypertension Qualified Code(s): I10 - Essential (primary) hypertension (6) Diabetes Current Visit: Yes Status: Acute Assessment and plan: Home insulin regimen started and accucheck monitoring. Qualifiers: Diabetes mellitus type: type 2 Diabetes mellitus complication status: with kidney complications Diabetes mellitus complication detail: with chronic kidney disease Diabetes mellitus manager terminal insulin use: with manager terminal use Chronic kidney disease stage: on chronic dialysis Qualified Code(s): E11.22 - Type 2 diabetes mellitus with diabetic chronic kidney disease; N18.6 - End stage renal disease; Z79.4 - penitentiary (current) use of insulin; Z99.2 - Dependence on renal dialysis - Subjective Interval history: Mr. Betts is currently admitted for anemia and fluid overload with ESRD. He is moderate to high risk due to potential for worsening respiratory and cardiac status. Mr. Betts is doing OK. He is having some back pain and is having a work up at [facility]. He is to have a thoracic MRI. I reviewed prior results and there is concern for a cord process in upper thoracic area. - Constitutional Vitals: Temp Pulse Resp BP Pulse Ox 98 F 52 18 103/53 92 09/04/16 15:49 09/04/16 15:49 09/04/16 15:49 09/04/16 15:57 09/04/16 15:49 General appearance: Present: A&O X 3, pleasant, answers questions appropriately - Head Head exam: Present: normocephalic - Eye Eye exam: Present: conjuntiva pink - ENT ENT exam: Present: mucous membranes dry - Respiratory Respiratory exam: Present: decreased breath sounds, CTAB - Cardiovascular Cardiovascular exam: Present: RRR. Absent: systolic murmur, tachycardia - GI/Abdominal GI/Abdominal exam: Present: distended, soft. Absent: tenderness - Extremities Exam Extremities exam: Present: pedal edema, warm - Neurological Exam Neurological exam: Present: alert, oriented X3, no focal deficits - Psychiatric Psychiatric exam: Present: normal affect, normal mood - Skin Skin exam: Present: warm. Absent: rash Internal Medicine: Result - Labs CBC & Chem 7: 09/04/16 09:34 09/04/16 09:34 Labs: Short CBC 09/04/16 Range/Units 09:34 WBC 5.5 (4.3-11.1) K/mcL Hgb 7.4 L (12.9-16.9) g/dL Hct 21.8 L (37.5-50.1) % Plt Count 101 L (140-400) K/mcL [facility] 09/04/16 09:34 Sodium 136 Potassium 5.8 H Chloride 101 Carbon Dioxide 21 BUN 41 H Creatinine 5.74 H Glucose 144 H Calcium 8.9 - ABG Interpretation ABG results: PT/INR, D-dimer PT 12.9 Seconds (9.4-12.1) H 09/02/16 18:18 - Impressions Impressions Thoracic Spine MRI 09/04/16 12:35 IMPRESSION: 1. Motion degraded examination. 2. Upper thoracic hydrosyringomyelia. 3. Diffuse epidural lipomatosis causing moderate narrowing of the thecal sac. 4. Diffusely low marrow signal on all sequences as can be seen in setting of anemia, smoking, or chronic infiltrative marrow processes. Correlation with CBC is advised. D/ / Josue Cottrell MD / Josue Cottrell MD Interpreting Provider: Josue Cottrell MD Consult Discharge Plan - Plan Instructions: Heart Failure (DC), Atrial Fibrillation (DC), Cirrhosis (DC), Cirrhosis (GEN), Acute Kidney Injury (DC), Acute Kidney Injury (GEN), Urinary Tract Infection in Men (DC), Hemodialysis (DC), Hemodialysis (GEN), Dialysis Diet (DC), Dialysis Diet (GEN), Diabetes Mellitus Type 2 in Adults (DC), Viral Hepatitis C (DC), Viral Hepatitis C (GEN), Arteriovenous Fistula Creation for Hemodialysis (DC), Chronic Hypertension (DC), Hypotension (DC), Anemia (GEN), Viral Hepatitis C, Senior Sas Developer (GEN) [facility]: [facility] [Primary Care Provider] -
[2016-09-04] MEDS ORDERED: LATANOPROST OP SCH (21:00)
[2016-09-05 01:34] LABS: Basophils % 0.3 %; Eosinophils # 0.3 K/mcL (0.0-0.6); Eosinophils % 3.6 %; Hematocrit 21.2 % (37.5-50.1); Immature Granulocytes % 0.6 % (0-4); Immature Platelets 4.4 % (1.1-6.1); Lymphocytes # 1.1 K/mcL (0.6-4.6); Lymphocytes % 16.5 %; Mean Corpuscular Hemoglobin 34.1 pg (28.0-33.3); Mean Corpuscular Volume 103.4 fL (83.0-100.0); Mean Platelet Volume 10.4 fL (9.4-12.4); Monocytes # 0.4 K/mcL (0.0-1.3); Monocytes % 6.2 %; Platelet Count 120 K/mcL (140-400); Red Blood Count 2.05 M/mcL (4.19-5.50); Red Cell Distribution Width 19.3 % (11.5-14.5); Segmented Neutrophils % 72.8 %
[2016-09-05 01:46] LABS: Calcium 8.9 mg/dL (8.6-10.8); Magnesium 1.7 mg/dL (1.6-2.6); Phosphorous 7.5 mg/dL (2.3-4.7); Potassium 5.9 mEq/L (3.5-4.5)
[2016-09-05] MEDS: Insulin LISPRO 300 UNITS/3 ML VIAL SQ SCH ×8 (05:49→22:54)
[2016-09-05] MEDS: *HR* Heparin 5,000 UNIT/ML VIAL SQ SCH ×2 (05:59→18:40)
[2016-09-05] MEDS ORDERED: 0.9 % Sodium Chloride 250 ML IVC PRN (08:10)
[2016-09-05] MEDS ORDERED: 0.9 % Sodium Chloride 1,000 ML PRIME SCH (08:15)
[2016-09-05] MEDS ORDERED: 0.9 % Sodium Chloride 3,000 ML ONE (08:25)
[2016-09-05] MEDS: Lisinopril 20 MG TABLET PO SCH (08:30)
[2016-09-05] MEDS: Aspirin 325 MG TABLET PO SCH (08:30)
[2016-09-05] MEDS: Calcium Acetate 667 MG CAPSULE PO SCH ×3 (08:30→18:40)
[2016-09-05] MEDS: Insulin DETEMIR 100 UNIT/ML X5UNITS SQ SCH (08:34)
--- NOTE | 2016-09-05 09:26 | Nephrology Progress Note ---
Date of Encounter: 09/05/16 Time of Encounter: 06:50 - Assessment and Plan (1) ESRD (end stage renal disease) Current Visit: Yes Status: Chronic Patient receiving HD M, W, and F. He has no reports of missing any sessions, will continue HD per his normal schedule. Patient had HD Thursday with an estimated removal of 2 L fluid HD today, will address patient hyperkalemia and further pull off fluid (2) Anemia Current Visit: No Status: Acute Patient current anemia likely chronic in nature given past hemoglobin levels, normal iron studies, normal B12, and normal folate. Could consider iron supplementation in the future as iron studies are on the low-side of normal. LDH was normal, indicating that there is less possibility of intravascular hemolysis. His Hgb is down to 7.0 today, indicating some degree of dilution contributing to his anemia. Will order 1 unit pRBCs to be given during HD today Eloy Cee yesterday Obtain MMA to more closely evaluate folate/B12 Qualifiers: Anemia type: other cause Other causes of anemia: chronic disease, kidney Qualified Code(s): N18.9 - Chronic kidney disease, unspecified; D63.1 - Anemia in chronic kidney disease (3) Hyperkalemia Current Visit: Yes Status: Acute Potassium at 5.9, no concerning EKG findings noted. Slight change in patient potassium. Continue plan for HD today will continue to monitor with daily labs (4) Hyperphosphatemia Current Visit: Yes Status: Acute Patient taking calcium acetate (PhosLo) at home. He demonstrates elevated a phosphate level with labs performed today. Will continue patient home Phos-Lo, will consider increasing his dose if improvement in patient phosphate level is not improved Be sure to give the calcium acetate (Phos-Lo) with meals Will recheck phosphate in the morning (5) CHF (congestive heart failure) Current Visit: Yes Status: Acute Patient complaint of orthopnea likely related to his abdomen. Increased size and tension and abdomen likely causing pressure on diaphragm when lying down causing orthopnea like symptoms, lungs otherwise clear on auscultation. Patient had 2 L removed during dialysis previously. When seen this morning, patient was sleeping comfortably in right lateral recumbent position. No ascites were seen in patient abdomen on CT examination Qualifiers: Congestive heart failure type: unspecified congestive heart failure type Congestive heart failure chronicity: acute on chronic Qualified Code(s): I50.9 - Heart failure, unspecified (6) Cirrhosis of liver Current Visit: No Status: Chronic Likely due to patient hepatitis C Currently no acute issues Per primary team Qualifiers: Hepatic cirrhosis type: unspecified hepatic cirrhosis Ascites presence: without ascites Qualified Code(s): K74.60 - Unspecified cirrhosis of liver (7) Diabetes Current Visit: Yes Status: Acute Blood sugar control per primary team Qualifiers: Diabetes mellitus type: type 2 Diabetes mellitus complication status: with kidney complications Diabetes mellitus complication detail: with chronic kidney disease Diabetes mellitus fci insulin use: with fci use Chronic kidney disease stage: on chronic dialysis Qualified Code(s): E11.22 - Type 2 diabetes mellitus with diabetic chronic kidney disease; N18.6 - End stage renal disease; Z79.4 - buttermaker helper (current) use of insulin; Z99.2 - Dependence on renal dialysis (8) DVT prophylaxis Current Visit: No Status: Acute Patient received 5000 units heparin subcutaneous every 12 hours Subjective Principal diagnosis: Anemia, ESRD Interval history: Patient asleep, comfortable and seen this morning. Patient necessitated a one- on-one sitter last night due to agitation. He appeared to have a slightly difficult time waking up this morning in order to converse. Patient appeared to be oriented, and community consciousness having just woken up. As he is lying comfortably he had no continued complaints of orthopnea, and only reports mild improvement. He states he is continuing to have some weakness and fatigue , but nothing acutely new. Objective - Vital Signs Vital signs: Vital Signs Temp Pulse Resp BP Pulse Ox 09/05/16 07:39 97.1 F L 56 26 96/77 94 09/05/16 04:33 57 18 111/52 91 09/04/16 21:41 98.0 F 60 20 109/75 93 09/04/16 15:57 103/53 09/04/16 15:49 98 F 52 18 103/53 92 09/04/16 12:00 94 09/04/16 11:56 98.1 F 53 18 98/48 94 Intake and Output 09/04/16 09/05/16 09/05/16 23:59 07:59 15:59 Intake Total 120 / 120 Balance 120 / 120 Intake: Oral 120 / 120 Other: Meal Breakfast Percent of Meal Consumed 100% Weight 116.4 kg Blood Glucose* 109 122 Patient Weight 09/05/16 23:59 Weight 116.4 kg - General Appearance General appearance: Present: well-developed, well-nourished, appears started age , obese EENT: Present: ATNC, PERRL, mucous membranes moist, hearing aids present. Absent: hearing intact Neck: Present: no JVD, supple Respiratory: Present: no kyphosis, clear Cardiology: Present: no murmurs, no rub, no gallops, edema (+1 in bl LE), regular rate, regular rhythm, normal S1, normal S2 Dialysis Vascular Access: Arteriovenous Fistula thrill: Yes bruit: Yes Gastrointestinal: Present: normoactive bowel sounds, no tenderness, no guarding , no organomegaly, no masses, obese, distended. Absent: hepatomegaly, splenomegaly Integumentary: Present: no rash, warm and dry Neurologic: Present: no focal deficit, no asterixis, alert and oriented x3 Musculoskeletal: Present: no deformities, no erythema, no cyanosis, no clubbing Psychiatric: Present: mood/affect appropriate, cooperative - Lab 09/05/16 01:26 09/05/16 01:26 Most recent lab results Calcium 8.9 mg/dL (8.6-10.8) 09/05/16 01:26 Phosphorus 7.5 mg/dL (2.3-4.7) H 09/05/16 01:26 Magnesium 1.7 mg/dL (1.6-2.6) 09/05/16 01:26 Consult Discharge Plan - Plan Instructions: Heart Failure (DC), Atrial Fibrillation (DC), Cirrhosis (DC), Cirrhosis (GEN), Acute Kidney Injury (DC), Acute Kidney Injury (GEN), Urinary Tract Infection in Men (DC), Hemodialysis (DC), Hemodialysis (GEN), Dialysis Diet (DC), Dialysis Diet (GEN), Diabetes Mellitus Type 2 in Adults (DC), Viral Hepatitis C (DC), Viral Hepatitis C (GEN), Arteriovenous Fistula Creation for Hemodialysis (DC), Chronic Hypertension (DC), Hypotension (DC), Anemia (GEN), Viral Hepatitis C, Supervisor Drawing (GEN) [facility]errals: [facility] [Primary Care Provider] -
--- NOTE | 2016-09-05 18:10 | Internal Med Progress Note ---
Date of Encounter: 09/05/16 Time of Encounter: 14:00 - Assessment and plan (1) Back pain Current Visit: Yes Status: Acute Assessment and plan: MRI of T spine shows hydromyelia. He has minimal upper back symptoms. Will check labs for myeloma, etc. Considering lidoderm patch. He cannot take steroids as he says they make him immunocompromised. He is on dialysis limiting some medications and did not tolerate a low dose of Ativan. Qualifiers: Back pain location: low back pain Back pain laterality: bilateral Sciatica presence: without sciatica Qualified Code(s): M54.5 - Low back pain (2) Anemia Current Visit: No Status: Acute Assessment and plan: Transfusion in dialysis today. Recheck tomorrow. Qualifiers: Anemia type: other cause Other causes of anemia: chronic disease, kidney Qualified Code(s): N18.9 - Chronic kidney disease, unspecified; D63.1 - Anemia in chronic kidney disease (3) ESRD (end stage renal disease) Current Visit: Yes Status: Chronic Assessment and plan: Dialysis per renal service. (4) History of hepatitis C Current Visit: No Status: Chronic Assessment and plan: Currently does not appear to have any acute issues. (5) Hypertension Current Visit: No Status: Chronic Assessment and plan: Monitoring at this time. Meds adjusted as needed. Qualifiers: Hypertension type: essential hypertension Qualified Code(s): I10 - Essential (primary) hypertension (6) Diabetes Current Visit: Yes Status: Acute Assessment and plan: Home insulin regimen started and accucheck monitoring. Qualifiers: Diabetes mellitus type: type 2 Diabetes mellitus complication status: with kidney complications Diabetes mellitus complication detail: with chronic kidney disease Diabetes mellitus group home insulin use: with explosives truck driver use Chronic kidney disease stage: on chronic dialysis Qualified Code(s): E11.22 - Type 2 diabetes mellitus with diabetic chronic kidney disease; N18.6 - End stage renal disease; Z79.4 - assisted (current) use of insulin; Z99.2 - Dependence on renal dialysis - Subjective Interval history: Mr. Betts is currently admitted for anemia and fluid overload with ESRD. He is moderate to high risk due to potential for worsening respiratory and cardiac status. Mr. Betts is still having a lot of back pain and difficulty walking. He is upset because the original reason he went to the ED was for the pain and he does not feel it is any better. No bowel or bladder problem or incontinence. No fever or chills. He has been confused and drowsy since Ativan yesterday. This has been slowly improving. - Constitutional Vitals: Temp Pulse Resp BP Pulse Ox 98.1 F 47 15 93/51 94 09/05/16 16:00 09/05/16 16:00 09/05/16 16:00 09/05/16 16:00 09/05/16 16:00 General appearance: Present: A&O X 3, pleasant, answers questions appropriately - Head Head exam: Present: normocephalic - Eye Eye exam: Present: conjuntiva pink - ENT ENT exam: Present: mucous membranes dry - Respiratory Respiratory exam: Present: decreased breath sounds. Absent: rhonchi, wheezes - Cardiovascular Cardiovascular exam: Present: RRR. Absent: systolic murmur, tachycardia - GI/Abdominal GI/Abdominal exam: Present: soft. Absent: tenderness - Extremities Exam Extremities exam: Present: pedal edema, warm - Neurological Exam Neurological exam: Present: alert, oriented X3 - Skin Skin exam: Present: dry. Absent: rash, warm Internal Medicine: Result - Labs CBC & Chem 7: 09/05/16 01:26 09/05/16 01:26 Labs: Short CBC 09/05/16 Range/Units 01:26 WBC 6.9 (4.3-11.1) K/mcL Hgb 7.0 L (12.9-16.9) g/dL Hct 21.2 L (37.5-50.1) % Plt Count 120 L (140-400) K/mcL Neutrophils # 5.0 (1.6-8.9) K/mcL BMP 09/05/16 01:26 Sodium 137 Potassium 5.9 H Chloride 100 Carbon Dioxide 26 BUN 59 H D Creatinine 6.55 H Glucose 99 Calcium 8.9 - ABG Interpretation ABG results: PT/INR, D-dimer PT 12.9 Seconds (9.4-12.1) H 09/02/16 18:18 Consult Discharge Plan - Plan Instructions: Heart Failure (DC), Atrial Fibrillation (DC), Cirrhosis (DC), Cirrhosis (GEN), Acute Kidney Injury (DC), Acute Kidney Injury (GEN), Urinary Tract Infection in Men (DC), Hemodialysis (DC), Hemodialysis (GEN), Dialysis Diet (DC), Dialysis Diet (GEN), Diabetes Mellitus Type 2 in Adults (DC), Viral Hepatitis C (DC), Viral Hepatitis C (GEN), Arteriovenous Fistula Creation for Hemodialysis (DC), Chronic Hypertension (DC), Hypotension (DC), Anemia (GEN), Viral Hepatitis C, Engineering Project Manager (GEN) [facility]errals: [facility] [Primary Care Provider] -
[2016-09-05] MEDS: amLODIPine 5 MG TABLET PO SCH (22:55)
[2016-09-05] MEDS: LATANOPROST OP SCH (23:01)
[2016-09-06 05:05] LABS: Hematocrit 23.5 % (37.5-50.1); Hemoglobin 7.9 g/dL (12.9-16.9); Mean Corpuscular HGB Conc 33.6 g/dL (31.6-35.5); Mean Corpuscular Hemoglobin 34.1 pg (28.0-33.3); Mean Corpuscular Volume 101.3 fL (83.0-100.0); Mean Platelet Volume 10.6 fL (9.4-12.4); Platelet Count 109 K/mcL (140-400); Red Blood Count 2.32 M/mcL (4.19-5.50); Red Cell Distribution Width 19.1 % (11.5-14.5)
[2016-09-06 05:23] LABS: Albumin 3.2 g/dL (3.5-5.0); Bilirubin,Total 1.1 mg/dL (0.2-1.2); Calcium 8.9 mg/dL (8.6-10.8); Globulin 3.3 g/dL (2.4-3.5); Magnesium 1.7 mg/dL (1.6-2.6); Potassium 5.4 mEq/L (3.5-4.5); Total Protein 6.5 g/dL (6.0-8.3)
[2016-09-06] MEDS: *HR* Heparin 5,000 UNIT/ML VIAL SQ SCH ×2 (06:56→16:36)
[2016-09-06] MEDS: Insulin LISPRO 300 UNITS/3 ML VIAL SQ SCH ×7 (09:31→21:01)
[2016-09-06] MEDS: Aspirin 325 MG TABLET PO SCH (09:36)
[2016-09-06] MEDS: Lisinopril 20 MG TABLET PO SCH (09:36)
[2016-09-06] MEDS: Calcium Acetate 667 MG CAPSULE PO SCH ×3 (09:36→16:36)
[2016-09-06] MEDS: Insulin DETEMIR 100 UNIT/ML X5UNITS SQ SCH (09:38)
--- NOTE | 2016-09-06 10:52 | Nephrology Progress Note ---
Date of Encounter: 09/06/16 Time of Encounter: 10:50 - Assessment and Plan (1) ESRD (end stage renal disease) Current Visit: Yes Status: Chronic HD MWF. Renal diet Adjust medications for renal function. (2) Altered mental status Current Visit: No Status: Acute Unclear etiology. Primary team has been notified. Qualifiers: Altered mental status type: transient alteration of awareness Qualified Code(s): R40.4 - Transient alteration of awareness Subjective Principal diagnosis: Anemia, ESRD Interval history: Patient seen. He states he can't recall how he got into his body and that he feels like he is in the twilight zone. He is very different than he has been in the past. Objective - Vital Signs Vital signs: Vital Signs Temp Pulse Resp BP Pulse Ox 09/06/16 06:45 98.1 F 70 15 102/79 90 09/06/16 05:35 98.1 F 73 18 87/51 97 09/05/16 23:35 98.0 F 62 18 94/43 98 09/05/16 21:17 98.3 F 57 20 100/40 93 09/05/16 20:15 98 09/05/16 16:00 98.1 F 47 15 93/51 94 09/05/16 12:46 98.9 F 18 103/54 09/05/16 12:10 109/49 09/05/16 12:00 103/54 09/05/16 11:45 99/60 09/05/16 11:30 95/64 09/05/16 11:15 126/72 09/05/16 11:00 119/39 Intake and Output 09/05/16 09/06/16 09/06/16 23:59 07:59 15:59 Intake Total 240 / 240 0 / 0 120 / 120 Balance 240 / 240 0 / 0 120 / 120 Intake: Oral 240 / 240 0 / 0 120 / 120 Other: Meal Breakfast Percent of Meal Consumed 100% # Voids 1 0 Weight 116.9 kg Blood Glucose* 101 129 Patient Weight 09/06/16 23:59 Weight 116.9 kg - General Appearance General appearance: Present: well-developed, well-nourished, obese EENT: Present: ATNC Neck: Present: supple Additional Comments: respirations are unlabored Cardiology: Present: regular rate Gastrointestinal: Present: obese Neurologic: Present: confused, disoriented Psychiatric: Present: agitated - Lab 09/06/16 04:52 09/06/16 04:52 Most recent lab results Calcium 8.9 mg/dL (8.6-10.8) 09/06/16 04:52 Phosphorus 7.5 mg/dL (2.3-4.7) H 09/05/16 01:26 Magnesium 1.7 mg/dL (1.6-2.6) 09/06/16 04:52 Consult Discharge Plan - Plan Instructions: Heart Failure (DC), Atrial Fibrillation (DC), Cirrhosis (DC), Cirrhosis (GEN), Acute Kidney Injury (DC), Acute Kidney Injury (GEN), Urinary Tract Infection in Men (DC), Hemodialysis (DC), Hemodialysis (GEN), Dialysis Diet (DC), Dialysis Diet (GEN), Diabetes Mellitus Type 2 in Adults (DC), Viral Hepatitis C (DC), Viral Hepatitis C (GEN), Arteriovenous Fistula Creation for Hemodialysis (DC), Chronic Hypertension (DC), Hypotension (DC), Anemia (GEN), Viral Hepatitis C, Sales Professional Bilingual (GEN) [facility]errals: [facility] [Primary Care Provider] -
[2016-09-06 12:11] LABS: ABG Base Excess 2.2 mEq/L (-2.0 to 3.0); ABG HCO3 29.3 mEQ/L (21-27); ABG Oxygen Saturation 95 % (95-98); ABG PCO2 61 mmHg (35-45); ABG PH 7.29 pH Units (7.32-7.45); ABG PO2 84 mmHg (85-104); ABG TCO2 31.2 mEq/L (20-26)
[2016-09-06 12:12] LABS: Blood Gas Liter Flow 4 L/MIN
--- NOTE | 2016-09-06 16:20 | Internal Med Progress Note ---
Date of Encounter: 09/06/16 Time of Encounter: 16:18 - Assessment and plan (1) Acute metabolic encephalopathy Current Visit: Yes Status: Acute Assessment and plan: Seems a little better today. Stopped [place] and propranolol. CT head negative. Ammonia normal. Blood gas with respiratory acidosis but pt does not appear to be in distress or need bipap at this point. Will do nocturnal pulse ox and abg in AM. (2) Back pain Current Visit: Yes Status: Acute Assessment and plan: Previous MRI of the lumbar area showed stenosis of the L4-5 with R side foraminal narrowing. He says he cannot walk in the mornings and is concerned about weakness. Has tried multiple OTC and prescription meds. Will arrange further neurosurg eval. Qualifiers: Back pain location: low back pain Back pain laterality: bilateral Sciatica presence: without sciatica Qualified Code(s): M54.5 - Low back pain (3) Anemia Current Visit: No Status: Acute Assessment and plan: Has gone up with transfusion. Continue to monitor. Qualifiers: Anemia type: other cause Other causes of anemia: chronic disease, kidney Qualified Code(s): N18.9 - Chronic kidney disease, unspecified; D63.1 - Anemia in chronic kidney disease (4) ESRD (end stage renal disease) Current Visit: Yes Status: Chronic Assessment and plan: Dialysis per renal service. (5) History of hepatitis C Current Visit: No Status: Chronic Assessment and plan: Currently does not appear to have any acute issues. (6) Hypertension Current Visit: No Status: Chronic Assessment and plan: Monitoring at this time. Meds adjusted as needed. Qualifiers: Hypertension type: essential hypertension Qualified Code(s): I10 - Essential (primary) hypertension (7) Diabetes Current Visit: Yes Status: Acute Assessment and plan: Home insulin regimen started and accucheck monitoring. Qualifiers: Diabetes mellitus type: type 2 Diabetes mellitus complication status: with kidney complications Diabetes mellitus complication detail: with chronic kidney disease Diabetes mellitus intermodal owner operator truck driver insulin use: with intermodal owner operator truck driver use Chronic kidney disease stage: on chronic dialysis Qualified Code(s): E11.22 - Type 2 diabetes mellitus with diabetic chronic kidney disease; N18.6 - End stage renal disease; Z79.4 - termite control service representative (current) use of insulin; Z99.2 - Dependence on renal dialysis - Subjective Interval history: Mr. Betts is currently admitted for anemia and fluid overload with ESRD. He is moderate to high risk due to potential for worsening respiratory and cardiac status. Mr. Betts said he had a "rough night." He did not sleep well. He is more confused today. He is still very concerned about his back and is having pain down his R leg as well as some numbness. He is also feeling pressure in his bladder and is concerned about a bladder stone. - Constitutional Vitals: Temp Pulse Resp BP Pulse Ox 98.5 F 52 16 110/47 97 09/06/16 15:18 09/06/16 15:18 09/06/16 15:18 09/06/16 15:18 09/06/16 15:18 General appearance: Present: A&O X 3, pleasant, answers questions appropriately Exam: Seems more confused than yesterday but is oriented. - Head Head exam: Present: normocephalic - Eye Eye exam: Present: conjuntiva pink - ENT ENT exam: Present: mucous membranes dry - Respiratory Respiratory exam: Present: decreased breath sounds. Absent: rhonchi, wheezes - Cardiovascular Cardiovascular exam: Present: RRR. Absent: tachycardia - GI/Abdominal GI/Abdominal exam: Present: distended, soft. Absent: tenderness - Extremities Exam Extremities exam: Present: pedal edema, warm. Absent: tenderness - Neurological Exam Neurological exam: Present: alert, oriented X3 Additional comments: Decreased sensation lateral R tibia. Strength appears intact at this time. - Psychiatric Psychiatric exam: Present: normal affect, normal mood - Skin Skin exam: Present: warm Internal Medicine: Result - Labs CBC & Chem 7: 09/06/16 04:52 09/06/16 04:52 Labs: Short CBC 09/06/16 Range/Units 04:52 WBC 7.0 (4.3-11.1) K/mcL Hgb 7.9 L (12.9-16.9) g/dL Hct 23.5 L (37.5-50.1) % Plt Count 109 L (140-400) K/mcL BMP 09/06/16 04:52 Sodium 138 Potassium 5.4 H Chloride 99 Carbon Dioxide 29 BUN 55 H Creatinine 6.52 H Glucose 148 H Calcium 8.9 Liver Function 09/06/16 Range/Units 04:52 Total Bilirubin 1.1 (0.2-1.2) mg/dL AST 31 (5-34) Units/L ALT 22 (0-55) Units/L Alkaline Phosphatase 71 (38-126) Units/L Albumin 3.2 L (3.5-5.0) g/dL - ABG Interpretation ABG results: ABG ABG pH 7.29 pH Units (7.32-7.45) L 09/06/16 11:51 ABG pCO2 61 mmHg (35-45) H 09/06/16 11:51 ABG pO2 84 mmHg (85-104) L 09/06/16 11:51 ABG O2 Saturation 95 % (95-98) 09/06/16 11:51 PT/INR, D-dimer PT 12.9 Seconds (9.4-12.1) H 09/02/16 18:18 - Impressions Impressions Head CT 09/06/16 10:19 IMPRESSION: No acute intracranial abnormality. Age related changes including chronic small vessel ischemic disease and cerebral atrophy. D/ / 09/06/2016 11:45:10 Carmen Downey MD / [facility] Interpreting Provider: Carmen Downey MD Retroperitoneum Ultrasound 09/06/16 13:00 IMPRESSION: 1. Echogenic lesion is identified in the right lower pole measuring 16 x 12 x 7 mm. Finding presumably represents a nonobstructing stone. 2. No hydronephrosis. 3. Diffuse circumferential wall thickening of a nondistended bladder. No bladder calculi identified. D/ / 09/06/2016 13:47:19 [facility] Interpreting Provider: Carmen Downey MD Consult Discharge Plan - Plan Instructions: Heart Failure (DC), Atrial Fibrillation (DC), Cirrhosis (DC), Cirrhosis (GEN), Acute Kidney Injury (DC), Acute Kidney Injury (GEN), Urinary Tract Infection in Men (DC), Hemodialysis (DC), Hemodialysis (GEN), Dialysis Diet (DC), Dialysis Diet (GEN), Diabetes Mellitus Type 2 in Adults (DC), Viral Hepatitis C (DC), Viral Hepatitis C (GEN), Arteriovenous Fistula Creation for Hemodialysis (DC), Chronic Hypertension (DC), Hypotension (DC), Anemia (GEN), Viral Hepatitis C, Web Page Developer (GEN) [facility]: [facility] [Primary Care Provider] -
[2016-09-06] MEDS ORDERED: Capsaicin 0.025% 60 GM TUBE TP PRN (16:40)
[2016-09-06] MEDS: Eucerin Cream 57 GM TUBE TP SCH (20:59)
[2016-09-06] MEDS: LATANOPROST OP SCH (21:00)
[2016-09-06] MEDS: amLODIPine 5 MG TABLET PO SCH (21:00)
[2016-09-07 05:38] LABS: Calcium 8.5 mg/dL (8.6-10.8); Magnesium 1.7 mg/dL (1.6-2.6); Potassium 5.7 mEq/L (3.5-4.5)
[2016-09-07 06:02] LABS: Hematocrit 23.4 % (37.5-50.1); Hemoglobin 7.7 g/dL (12.9-16.9); Mean Corpuscular HGB Conc 32.9 g/dL (31.6-35.5); Mean Corpuscular Hemoglobin 33.5 pg (28.0-33.3); Mean Platelet Volume 11.1 fL (9.4-12.4); Platelet Count 107 K/mcL (140-400); Red Cell Distribution Width 18.4 % (11.5-14.5)
[2016-09-07 06:10] LABS: Mean Corpuscular Volume 101.7 fL (83.0-100.0)
[2016-09-07] MEDS: *HR* Heparin 5,000 UNIT/ML VIAL SQ SCH ×2 (06:39→16:57)
[2016-09-07] MEDS: Insulin LISPRO 300 UNITS/3 ML VIAL SQ SCH ×7 (09:23→22:40)
[2016-09-07] MEDS: Renal Vitamin 1 MG CAPSULE PO SCH (09:26)
[2016-09-07] MEDS: Aspirin 325 MG TABLET PO SCH (09:27)
[2016-09-07] MEDS: Calcium Acetate 667 MG CAPSULE PO SCH ×3 (09:27→16:57)
[2016-09-07] MEDS: Insulin DETEMIR 100 UNIT/ML X5UNITS SQ SCH (09:28)
[2016-09-07] MEDS: Eucerin Cream 57 GM TUBE TP SCH ×2 (09:32→22:39)
--- NOTE | 2016-09-07 10:50 | Internal Med Progress Note ---
Date of Encounter: 09/07/16 Time of Encounter: 10:47 - Assessment and plan (1) Acute metabolic encephalopathy Current Visit: Yes Status: Acute Assessment and plan: Appears to be back at baseline. Most likely was related to propranolol. Continue supportive care. (2) JOSÉ MANUEL (obstructive sleep apnea) Current Visit: Yes Status: Acute Assessment and plan: Pt already on treatment at home. (3) Back pain Current Visit: Yes Status: Acute Assessment and plan: Significant difficulty with moving in mornings. Has L4-5 stenosis. Will try to arrange further neurosurg eval. Qualifiers: Back pain location: low back pain Back pain laterality: bilateral Sciatica presence: without sciatica Qualified Code(s): M54.5 - Low back pain (4) Anemia Current Visit: No Status: Acute Assessment and plan: Remains about the same. Further transfusion per renal service. Qualifiers: Anemia type: other cause Other causes of anemia: chronic disease, kidney Qualified Code(s): N18.9 - Chronic kidney disease, unspecified; D63.1 - Anemia in chronic kidney disease (5) ESRD (end stage renal disease) Current Visit: Yes Status: Chronic Assessment and plan: Dialysis per renal service. (6) History of hepatitis C Current Visit: No Status: Chronic Assessment and plan: Currently does not appear to have any acute issues. (7) Hypertension Current Visit: No Status: Chronic Assessment and plan: Monitoring at this time. Meds adjusted as needed. Qualifiers: Hypertension type: essential hypertension Qualified Code(s): I10 - Essential (primary) hypertension (8) Diabetes Current Visit: Yes Status: Acute Assessment and plan: Home insulin regimen started and accucheck monitoring. Qualifiers: Diabetes mellitus type: type 2 Diabetes mellitus complication status: with kidney complications Diabetes mellitus complication detail: with chronic kidney disease Diabetes mellitus manager intermediate insulin use: with manager intermediate use Chronic kidney disease stage: on chronic dialysis Qualified Code(s): E11.22 - Type 2 diabetes mellitus with diabetic chronic kidney disease; N18.6 - End stage renal disease; Z79.4 - long term care social worker (current) use of insulin; Z99.2 - Dependence on renal dialysis - Subjective Interval history: Mr. Betts is currently admitted for anemia and fluid overload with ESRD. He is moderate to high risk due to potential for worsening respiratory and cardiac status. Mr. Betts appears to be mentally clearer today. Denies worsening chest pain or dyspnea. Has been on 4 liters oxygen. Normally has bipap at home but doesn't usually wear it at night, only with daytime nap. Back still very painful. - Constitutional Vitals: Temp Pulse Resp BP Pulse Ox 99.0 F 64 17 130/51 96 09/07/16 05:22 09/07/16 07:00 09/07/16 07:00 09/07/16 07:00 09/07/16 07:00 General appearance: Present: A&O X 3, pleasant, answers questions appropriately - Head Head exam: Present: normocephalic - Eye Eye exam: Present: conjuntiva pink - ENT ENT exam: Present: mucous membranes dry - Respiratory Respiratory exam: Present: decreased breath sounds, CTAB. Absent: rales, rhonchi, wheezes - Cardiovascular Cardiovascular exam: Present: RRR. Absent: tachycardia - GI/Abdominal GI/Abdominal exam: Present: distended, soft. Absent: tenderness - Extremities Exam Extremities exam: Present: pedal edema, warm. Absent: tenderness - Neurological Exam Neurological exam: Present: alert, oriented X3, no focal deficits Additional comments: Mentation clearer today. - Psychiatric Psychiatric exam: Present: normal affect, normal mood - Skin Skin exam: Present: warm. Absent: rash Internal Medicine: Result - Labs CBC & Chem 7: 09/07/16 04:44 09/07/16 04:44 Labs: Short CBC 09/07/16 Range/Units 04:44 WBC 6.8 (4.3-11.1) K/mcL Hgb 7.7 L (12.9-16.9) g/dL Hct 23.4 L (37.5-50.1) % Plt Count 107 L (140-400) K/mcL BMP 09/07/16 04:44 Sodium 136 Potassium 5.7 H Chloride 99 Carbon Dioxide 25 BUN 76 H D Creatinine 8.10 H Glucose 137 H Calcium 8.5 L - ABG Interpretation ABG results: ABG ABG pH 7.29 pH Units (7.32-7.45) L 09/06/16 11:51 ABG pCO2 61 mmHg (35-45) H 09/06/16 11:51 ABG pO2 84 mmHg (85-104) L 09/06/16 11:51 ABG O2 Saturation 95 % (95-98) 09/06/16 11:51 PT/INR, D-dimer PT 12.9 Seconds (9.4-12.1) H 09/02/16 18:18 - Impressions Impressions Head CT 09/06/16 10:19 IMPRESSION: No acute intracranial abnormality. Age related changes including chronic small vessel ischemic disease and cerebral atrophy. D/ / 09/06/2016 11:45:10 Carmen Downey MD / [place] Interpreting Provider: Carmen Downey MD Retroperitoneum Ultrasound 09/06/16 13:00 IMPRESSION: 1. Echogenic lesion is identified in the right lower pole measuring 16 x 12 x 7 mm. Finding presumably represents a nonobstructing stone. 2. No hydronephrosis. 3. Diffuse circumferential wall thickening of a nondistended bladder. No bladder calculi identified. D/ / 09/06/2016 13:47:19 Carmen Downey MD / [facility] Interpreting Provider: Carmen Downey MD Consult Discharge Plan - Plan Instructions: Heart Failure (DC), Atrial Fibrillation (DC), Cirrhosis (DC), Cirrhosis (GEN), Acute Kidney Injury (DC), Acute Kidney Injury (GEN), Urinary Tract Infection in Men (DC), Hemodialysis (DC), Hemodialysis (GEN), Dialysis Diet (DC), Dialysis Diet (GEN), Diabetes Mellitus Type 2 in Adults (DC), Viral Hepatitis C (DC), Viral Hepatitis C (GEN), Arteriovenous Fistula Creation for Hemodialysis (DC), Chronic Hypertension (DC), Hypotension (DC), Anemia (GEN), Viral Hepatitis C, Felt Hat Inspector And Packer (GEN) [facility]errals: [facility] [Primary Care Provider] -
--- NOTE | 2016-09-07 11:38 | Nephrology Progress Note ---
Date of Encounter: 09/07/16 Time of Encounter: 11:36 - Assessment and Plan (1) ESRD (end stage renal disease) Current Visit: Yes Status: Chronic HD MWF. Renal diet Adjust medications for renal function. (2) Altered mental status Current Visit: No Status: Acute Unclear etiology. Resolved. He is back to baseline. Qualifiers: Altered mental status type: transient alteration of awareness Qualified Code(s): R40.4 - Transient alteration of awareness (3) Anemia Current Visit: Yes Status: Acute On Ar[place]. Iron saturation is 30%. Follow. Methylmalonic acid is elevated. Will start vitamin B12 replacement. Qualifiers: Qualified Code(s): D64.9 - Anemia, unspecified (4) Cirrhosis of liver Current Visit: No Status: Chronic per primary team. Qualifiers: Hepatic cirrhosis type: unspecified hepatic cirrhosis Ascites presence: without ascites Qualified Code(s): K74.60 - Unspecified cirrhosis of liver (5) Obesity Current Visit: Yes Status: Acute patient interested in dietary education (ordered). Qualifiers: Qualified Code(s): E66.9 - Obesity, unspecified Subjective Principal diagnosis: Anemia, ESRD Interval history: Patient seen. He is better today. He is concerned about his abdomen which he thinks is secondary to crystals from insulin. Objective - Vital Signs Vital signs: Vital Signs Temp Pulse Resp BP Pulse Ox 09/07/16 07:00 64 17 130/51 96 09/07/16 05:22 99.0 F 79 18 110/57 97 09/06/16 19:02 98.5 F 65 18 132/51 98 09/06/16 15:18 98.5 F 52 16 110/47 97 Intake and Output 09/06/16 09/07/16 09/07/16 23:59 07:59 15:59 Intake Total 240 / 240 0 / 0 240 / 240 Balance 240 / 240 0 / 0 240 / 240 Intake: Oral 240 / 240 0 / 0 240 / 240 Other: Meal Dinner Breakfast Percent of Meal Consumed 50% 90% # Voids 0 0 Weight 116.2 kg Blood Glucose* 194 133 Patient Weight 09/07/16 23:59 Weight 116.2 kg - General Appearance General appearance: Present: well-developed, well-nourished EENT: Present: ATNC Neck: Present: supple Cardiology: Present: edema, regular rate - Lab 09/07/16 04:44 09/07/16 04:44 Most recent lab results ABG pH 7.29 pH Units (7.32-7.45) L 09/06/16 11:51 ABG pCO2 61 mmHg (35-45) H 09/06/16 11:51 ABG pO2 84 mmHg (85-104) L 09/06/16 11:51 ABG HCO3 29.3 mEQ/L (21-27) H 09/06/16 11:51 ABG O2 Saturation 95 % (95-98) 09/06/16 11:51 Calcium 8.5 mg/dL (8.6-10.8) L 09/07/16 04:44 Phosphorus 7.5 mg/dL (2.3-4.7) H 09/05/16 01:26 Magnesium 1.7 mg/dL (1.6-2.6) 09/07/16 04:44 Consult Discharge Plan - Plan Instructions: Heart Failure (DC), Atrial Fibrillation (DC), Cirrhosis (DC), Cirrhosis (GEN), Acute Kidney Injury (DC), Acute Kidney Injury (GEN), Urinary Tract Infection in Men (DC), Hemodialysis (DC), Hemodialysis (GEN), Dialysis Diet (DC), Dialysis Diet (GEN), Diabetes Mellitus Type 2 in Adults (DC), Viral Hepatitis C (DC), Viral Hepatitis C (GEN), Arteriovenous Fistula Creation for Hemodialysis (DC), Chronic Hypertension (DC), Hypotension (DC), Anemia (GEN), Viral Hepatitis C, Pastoral Ministries Professor (GEN) [facility]errals: [facility] [Primary Care Provider] -
[2016-09-07] MEDS: Lisinopril 20 MG TABLET PO SCH (12:04)
[2016-09-07] MEDS: Cyanocobalamin (B-12) 1,000 MCG/ML VIAL IM SCH (16:57)
[2016-09-07] MEDS: LATANOPROST OP SCH (22:40)
[2016-09-07] MEDS: amLODIPine 5 MG TABLET PO SCH (22:40)
[2016-09-08 05:19] LABS: Calcium 8.8 mg/dL (8.6-10.8); Potassium 6.1 mEq/L (3.5-4.5)
[2016-09-08 05:52] LABS: Hematocrit 21.9 % (37.5-50.1); Hemoglobin 7.3 g/dL (12.9-16.9); Mean Corpuscular HGB Conc 33.3 g/dL (31.6-35.5); Mean Corpuscular Hemoglobin 33.8 pg (28.0-33.3); Mean Corpuscular Volume 101.4 fL (83.0-100.0); Platelet Count 112 K/mcL (140-400); Red Blood Count 2.16 M/mcL (4.19-5.50); Red Cell Distribution Width 18.3 % (11.5-14.5)
[2016-09-08] MEDS: *HR* Heparin 5,000 UNIT/ML VIAL SQ SCH ×2 (06:40→18:10)
[2016-09-08] MEDS: Cyanocobalamin (B-12) 1,000 MCG/ML VIAL IM SCH (07:07)
[2016-09-08] MEDS: Aspirin 325 MG TABLET PO SCH (07:07)
[2016-09-08] MEDS: Eucerin Cream 57 GM TUBE TP SCH ×2 (07:08→22:22)
[2016-09-08] MEDS: Insulin LISPRO 300 UNITS/3 ML VIAL SQ SCH ×7 (07:09→22:20)
[2016-09-08] MEDS ORDERED: 0.9 % Sodium Chloride 250 ML IVC PRN (08:04)
[2016-09-08] MEDS ORDERED: 0.9 % Sodium Chloride 1,000 ML PRIME SCH (08:15)
[2016-09-08] MEDS: Renal Vitamin 1 MG CAPSULE PO SCH (08:16)
[2016-09-08] MEDS: Calcium Acetate 667 MG CAPSULE PO SCH ×3 (08:16→17:10)
[2016-09-08] MEDS: Insulin DETEMIR 100 UNIT/ML X5UNITS SQ SCH (08:17)
--- NOTE | 2016-09-08 12:17 | Internal Med Progress Note ---
Date of Encounter: 09/08/16 Time of Encounter: 09:30 - Assessment and plan (1) Acute metabolic encephalopathy Current Visit: Yes Status: Acute Assessment and plan: Waxes and wanes a little with his mental status. Will continue supportive care at this time. (2) JOSÉ MANUEL (obstructive sleep apnea) Current Visit: Yes Status: Acute Assessment and plan: Pt already on treatment at home. (3) Back pain Current Visit: Yes Status: Acute Assessment and plan: Continues to have LBP with R leg pain and parasthesias. Dr. Holman consult. Hopefully he will agree to go to rehab at discharge. Qualifiers: Back pain location: low back pain Back pain laterality: bilateral Sciatica presence: without sciatica Qualified Code(s): M54.5 - Low back pain (4) Anemia Current Visit: No Status: Acute Assessment and plan: Treatment per renal service. Qualifiers: Anemia type: other cause Other causes of anemia: chronic disease, kidney Qualified Code(s): N18.9 - Chronic kidney disease, unspecified; D63.1 - Anemia in chronic kidney disease (5) ESRD (end stage renal disease) Current Visit: Yes Status: Chronic Assessment and plan: Dialysis per renal service. (6) History of hepatitis C Current Visit: No Status: Chronic Assessment and plan: Currently does not appear to have any acute issues. (7) Hypertension Current Visit: No Status: Chronic Assessment and plan: Monitoring at this time. Meds adjusted as needed. Qualifiers: Hypertension type: essential hypertension Qualified Code(s): I10 - Essential (primary) hypertension (8) Diabetes Current Visit: Yes Status: Acute Assessment and plan: Home insulin regimen started and accucheck monitoring. Qualifiers: Diabetes mellitus type: type 2 Diabetes mellitus complication status: with kidney complications Diabetes mellitus complication detail: with chronic kidney disease Diabetes mellitus terminal make up operator insulin use: with terminal make up operator use Chronic kidney disease stage: on chronic dialysis Qualified Code(s): E11.22 - Type 2 diabetes mellitus with diabetic chronic kidney disease; N18.6 - End stage renal disease; Z79.4 - terminal make up operator (current) use of insulin; Z99.2 - Dependence on renal dialysis - Subjective Interval history: Mr. Betts is currently admitted for anemia and fluid overload with ESRD. He is moderate to high risk due to potential for worsening respiratory and cardiac status. Mr. Roxane was frustrated this AM about being awakened many times. He continues to have back pain. Due for dialysis today. Did not sleep well. No CP or worsening dyspnea. Still with pain and parasthesias down R leg. - Constitutional Vitals: Temp Pulse Resp BP Pulse Ox 97.6 F 73 20 117/53 93 09/08/16 08:00 09/08/16 08:00 09/08/16 08:00 09/08/16 08:00 09/08/16 08:27 General appearance: Present: A&O X 3, pleasant, answers questions appropriately - Head Head exam: Present: normocephalic - Eye Eye exam: Present: normal appearance, conjuntiva pink - ENT ENT exam: Present: mucous membranes dry - Respiratory Respiratory exam: Present: decreased breath sounds, rales, rhonchi. Absent: wheezes - Cardiovascular Cardiovascular exam: Present: distant heart sounds, RRR. Absent: tachycardia - GI/Abdominal GI/Abdominal exam: Present: soft. Absent: tenderness - Extremities Exam Extremities exam: Present: pedal edema, warm. Absent: tenderness - Neurological Exam Neurological exam: Present: alert, oriented X3 - Psychiatric Psychiatric exam: Present: normal affect, normal mood - Skin Skin exam: Present: dry, warm. Absent: rash Internal Medicine: Result - Labs CBC & Chem 7: 09/08/16 04:46 09/08/16 04:46 Labs: Short CBC 09/08/16 Range/Units 04:46 WBC 6.7 (4.3-11.1) K/mcL Hgb 7.3 L (12.9-16.9) g/dL Hct 21.9 L (37.5-50.1) % Plt Count 112 L (140-400) K/mcL BMP 09/08/16 04:46 Sodium 138 Potassium 6.1 H Chloride 100 Carbon Dioxide 24 BUN 94 H Creatinine 9.96 H Glucose 132 H Calcium 8.8 - ABG Interpretation ABG results: ABG ABG pH 7.29 pH Units (7.32-7.45) L 09/06/16 11:51 ABG pCO2 61 mmHg (35-45) H 09/06/16 11:51 ABG pO2 84 mmHg (85-104) L 09/06/16 11:51 ABG O2 Saturation 95 % (95-98) 09/06/16 11:51 PT/INR, D-dimer PT 12.9 Seconds (9.4-12.1) H 09/02/16 18:18 Consult Discharge Plan - Plan Instructions: Heart Failure (DC), Atrial Fibrillation (DC), Cirrhosis (DC), Cirrhosis (GEN), Acute Kidney Injury (DC), Acute Kidney Injury (GEN), Urinary Tract Infection in Men (DC), Hemodialysis (DC), Hemodialysis (GEN), Dialysis Diet (DC), Dialysis Diet (GEN), Diabetes Mellitus Type 2 in Adults (DC), Viral Hepatitis C (DC), Viral Hepatitis C (GEN), Arteriovenous Fistula Creation for Hemodialysis (DC), Chronic Hypertension (DC), Hypotension (DC), Anemia (GEN), Viral Hepatitis C, Drop Hammer Mechanic (GEN) [facility]errals: [facility] [Primary Care Provider] -
[2016-09-08] MEDS: Lisinopril 20 MG TABLET PO SCH (12:27)
--- NOTE | 2016-09-08 13:22 | Nephrology Progress Note ---
<Flavio England - Last Filed: 09/08/16 14:51> Date of Encounter: 09/08/16 Time of Encounter: 08:40 - Assessment and Plan (1) ESRD (end stage renal disease) Status: Chronic Patient receiving HD M, W, and F. He has no reports of missing any sessions, will continue HD per his normal schedule. Continue renal diet Renally dose medications (2) Anemia Status: Acute Patient current anemia likely chronic in nature given past hemoglobin levels, normal iron studies, normal B12, and normal folate. In many levels elevated, started on vitamin B12. Will order 1 unit pRBCs to be given during next HD Aranesp dose changed to 100 g weekly Patient given additional 60 g today to make difference from pervious 40 g MMA level elevated, started B12 yesterday Qualifiers: Anemia type: other cause Other causes of anemia: chronic disease, kidney Qualified Code(s): N18.9 - Chronic kidney disease, unspecified; D63.1 - Anemia in chronic kidney disease (3) Hyperkalemia Status: Acute Potassium at 6.1, no concerning EKG findings noted. Patient's potassium continues to elevate despite HD. Hemodialysis today We will recheck potassium after hemodialysis Continue to monitor daily (4) Cirrhosis of liver Status: Chronic Likely due to patient hepatitis C Currently no acute issues Per primary team Qualifiers: Hepatic cirrhosis type: unspecified hepatic cirrhosis Ascites presence: without ascites Qualified Code(s): K74.60 - Unspecified cirrhosis of liver (5) Diabetes Status: Acute Blood sugar control per primary team Qualifiers: Diabetes mellitus type: type 2 Diabetes mellitus complication status: with kidney complications Diabetes mellitus complication detail: with chronic kidney disease Diabetes mellitus snf insulin use: with snf use Chronic kidney disease stage: on chronic dialysis Qualified Code(s): E11.22 - Type 2 diabetes mellitus with diabetic chronic kidney disease; N18.6 - End stage renal disease; Z79.4 - [facility] (current) use of insulin; Z99.2 - Dependence on renal dialysis Subjective Principal diagnosis: Anemia, ESRD Interval history: Patient sitting in bed eating breakfast comfortably. He has no concerns/ complaints at this time, he reports no pain, reports no shortness of breath, reports no nausea/vomiting. His encephalopathy recently resolved was deemed to be due to usage of propanolol. Currently sitting in bed without problem. Objective - Vital Signs Vital signs: Vital Signs Temp Pulse Resp BP Pulse Ox 09/08/16 11:30 95/44 09/08/16 11:15 97/39 09/08/16 11:00 112/47 09/08/16 10:45 88/34 09/08/16 10:30 84/38 09/08/16 10:15 106/35 09/08/16 10:00 97.6 F 20 96/38 09/08/16 08:27 93 09/08/16 08:00 97.6 F 73 20 117/53 90 09/08/16 04:07 98.2 F 74 14 108/58 92 09/07/16 19:00 99.1 F 69 17 131/55 97 09/07/16 16:00 68 19 116/45 97 Intake and Output 09/07/16 09/08/16 09/08/16 23:59 07:59 15:59 Intake Total 720 / 720 Output Total 100 / 100 Balance 620 / 620 Intake: Oral 120 / 120 Intake, Rinseback and 600 / 600 Flushes Output: Urine 100 / 100 Other: Meal Breakfast Percent of Meal Consumed 30% # Voids 1 Weight 116 kg Blood Glucose* 145 144 Hemodialysis Net Fluid 1535 Removed (mL) Patient Weight 09/08/16 23:59 Weight 116 kg - General Appearance General appearance: Present: well-developed, well-nourished, appears started age EENT: Present: ATNC, PERRL, mucous membranes moist Neck: Present: supple Respiratory: Present: clear. Absent: wheezing, rales, rhonchi Cardiology: Present: no murmurs, no rub, no gallops, edema (+1 bl LE), regular rate, regular rhythm, normal S1, normal S2 Dialysis Vascular Access: Arteriovenous Fistula thrill: Yes bruit: Yes Gastrointestinal: Present: normoactive bowel sounds, no tenderness, no guarding Integumentary: Present: no rash, warm and dry, erythema (Chronic, bilateral lower extremities) Neurologic: Present: no focal deficit, alert and oriented x3 Musculoskeletal: Present: no deformities, no erythema, no cyanosis, no clubbing Psychiatric: Present: mood/affect appropriate, cooperative - Lab 09/08/16 04:46 09/08/16 04:46 Most recent lab results ABG pH 7.29 pH Units (7.32-7.45) L 09/06/16 11:51 ABG pCO2 61 mmHg (35-45) H 09/06/16 11:51 ABG pO2 84 mmHg (85-104) L 09/06/16 11:51 ABG HCO3 29.3 mEQ/L (21-27) H 09/06/16 11:51 ABG O2 Saturation 95 % (95-98) 09/06/16 11:51 Calcium 8.8 mg/dL (8.6-10.8) 09/08/16 04:46 Phosphorus 7.5 mg/dL (2.3-4.7) H 09/05/16 01:26 Magnesium 1.7 mg/dL (1.6-2.6) 09/07/16 04:44 Consult Discharge Plan - Plan Instructions: Heart Failure (DC), Atrial Fibrillation (DC), Cirrhosis (DC), Cirrhosis (GEN), Acute Kidney Injury (DC), Acute Kidney Injury (GEN), Urinary Tract Infection in Men (DC), Hemodialysis (DC), Hemodialysis (GEN), Dialysis Diet (DC), Dialysis Diet (GEN), Diabetes Mellitus Type 2 in Adults (DC), Viral Hepatitis C (DC), Viral Hepatitis C (GEN), Arteriovenous Fistula Creation for Hemodialysis (DC), Chronic Hypertension (DC), Hypotension (DC), Anemia (GEN), Viral Hepatitis C, Forming Department Supervisor (GEN) Referrals: Rachele Sánchez MD [Partnered Physician] - 09/16/16 9:20 am (This is for consult. Then she will determine when to do the spinal injection after this appt.) [facility] [Primary Care Provider[facility] - 09/18/16 1:30 pm <Jazmín Thomson - Last Filed: 09/26/16 07:05> Date of Encounter: 09/08/16 Objective - Lab 09/10/16 05:46 09/10/16 04:27 Most recent lab results ABG pH 7.29 pH Units (7.32-7.45) L 09/06/16 11:51 ABG pCO2 61 mmHg (35-45) H 09/06/16 11:51 ABG pO2 84 mmHg (85-104) L 09/06/16 11:51 ABG HCO3 29.3 mEQ/L (21-27) H 09/06/16 11:51 ABG O2 Saturation 95 % (95-98) 09/06/16 11:51 Calcium 8.5 mg/dL (8.6-10.8) L 09/10/16 04:27 Phosphorus 7.5 mg/dL (2.3-4.7) H 09/05/16 01:26 Magnesium 1.7 mg/dL (1.6-2.6) 09/07/16 04:44 - Attending Attestation I examined this patient and my medical decision-making was reviewed with the TECHNICAL FELLOW/PA/Advanced Practice Nurse/Resident Physician. I agree with the documented findings, disposition and treatment plan as described except to the extent set forth below. pt seen and examined on HD with no complaints. Will continue HD for 4hrs for improved clearance, 2k bath and UF goal of up to 4kg as tolerated. Will repeat k after HD. Low hgb noted with aranesp dose adjusted.Will transfuse as needed.
[2016-09-08] MEDS: amLODIPine 5 MG TABLET PO SCH (22:19)
[2016-09-08] MEDS: LATANOPROST OP SCH (22:23)
[2016-09-09 06:00] LABS: Hematocrit 20.6 % (37.5-50.1); Hemoglobin 7.2 g/dL (12.9-16.9); Mean Platelet Volume 10.4 fL (9.4-12.4); Platelet Count 104 K/mcL (140-400); Red Cell Distribution Width 18.1 % (11.5-14.5)
[2016-09-09 06:14] LABS: Calcium 8.6 mg/dL (8.6-10.8)
[2016-09-09 06:16] LABS: Potassium 4.8 mEq/L (3.5-4.5)
[2016-09-09] MEDS: Insulin LISPRO 300 UNITS/3 ML VIAL SQ SCH ×7 (10:38→20:15)
[2016-09-09] MEDS: Lisinopril 20 MG TABLET PO SCH (11:03)
[2016-09-09] MEDS: Calcium Acetate 667 MG CAPSULE PO SCH ×3 (11:07→16:48)
[2016-09-09] MEDS: Aspirin 325 MG TABLET PO SCH (11:10)
[2016-09-09] MEDS: *HR* Heparin 5,000 UNIT/ML VIAL SQ SCH ×2 (11:15→16:48)
[2016-09-09] MEDS: Insulin DETEMIR 100 UNIT/ML X5UNITS SQ SCH (11:16)
[2016-09-09] MEDS: Cyanocobalamin (B-12) 1,000 MCG/ML VIAL IM SCH (11:16)
[2016-09-09] MEDS: Renal Vitamin 1 MG CAPSULE PO SCH (11:16)
[2016-09-09] MEDS: Eucerin Cream 57 GM TUBE TP SCH ×2 (11:17→20:11)
--- NOTE | 2016-09-09 13:13 | Nephrology Progress Note ---
<Flavio England - Last Filed: 09/09/16 14:14> Date of Encounter: 09/09/16 Time of Encounter: 08:45 - Assessment and Plan (1) ESRD (end stage renal disease) Status: Chronic Patient receiving HD M,W,F. He has no reports of missing any sessions, will continue HD per his normal schedule. Continue renal diet Renally dose medications (2) Anemia Status: Acute Patient current anemia likely chronic in nature given past hemoglobin levels, normal iron studies, normal B12, and normal folate. MMA levels elevated, started on vitamin B12. Will order 1 unit pRBCs to be given during next HD Aranesp dose changed to 100 g weekly MMA level elevated, started B12 previously Qualifiers: Anemia type: other cause Other causes of anemia: chronic disease, kidney Qualified Code(s): N18.9 - Chronic kidney disease, unspecified; D63.1 - Anemia in chronic kidney disease (3) Hyperkalemia Status: Acute Potassium at 4.8 following dialysis yesterday. Hemodialysis per patient usual schedule Continue to monitor potassium level with daily labs (4) Cirrhosis of liver Status: Chronic Likely due to patient hepatitis C Currently no acute issues Continue management per primary team Qualifiers: Hepatic cirrhosis type: unspecified hepatic cirrhosis Ascites presence: without ascites Qualified Code(s): K74.60 - Unspecified cirrhosis of liver (5) Diabetes Status: Acute Blood sugar control per primary team Qualifiers: Diabetes mellitus type: type 2 Diabetes mellitus complication status: with kidney complications Diabetes mellitus complication detail: with chronic kidney disease Diabetes mellitus longterm insulin use: with intermediate card tender use Chronic kidney disease stage: on chronic dialysis Qualified Code(s): E11.22 - Type 2 diabetes mellitus with diabetic chronic kidney disease; N18.6 - End stage renal disease; Z79.4 - group home (current) use of insulin; Z99.2 - Dependence on renal dialysis Subjective Principal diagnosis: Anemia, ESRD Interval history: Patient sitting in bed comfortably, he has no concerns/complaints at this time. He is wondering about the results of his MRI and blood work, but no other pressing concerns at this time. He denies fatigue, weakness, chest pain, shortness of breath, nausea/vomiting Objective - Vital Signs Vital signs: Vital Signs Temp Pulse Resp BP Pulse Ox 09/09/16 08:00 93 09/09/16 07:00 98.2 F 76 18 100/42 93 04/18/17 05:10 56 09/09/16 00:09 96 09/08/16 22:20 95 09/08/16 21:56 98.7 F 58 14 117/58 95 09/08/16 18:11 107/63 09/08/16 17:08 98 F 78 18 107/63 98 09/08/16 14:10 97.6 F 18 123/53 09/08/16 14:00 104/50 09/08/16 13:45 99/49 09/08/16 13:30 110/46 09/08/16 13:15 101/47 Intake and Output 09/08/16 09/09/16 09/09/16 23:59 07:59 15:59 Intake Total 120 / 120 Balance 120 / 120 Intake: Oral 120 / 120 Other: Meal Breakfast Percent of Meal Consumed 100% Weight 116 kg Blood Glucose* 172 135 203 Patient Weight 09/09/16 23:59 Weight 116 kg - General Appearance Exam: General: Cooperative, pleasant, no acute distress, alert and oriented 3, answers questions appropriately Head: Normocephalic, atraumatic Eye: Conjunctiva pink, sclera anicteric, EOMI, PERRL Neck: Supple, trachea midline Respiratory: No accessory muscle usage, clear to auscultation bilaterally, no wheezes/rhonchi/rales appreciated Cardiovascular: Regular rate and rhythm, S1 and S2 present, no murmurs/rubs/ gallops/clicks appreciated GI/abdominal: Distended, nontender, soft, normal bowel sounds, no peritoneal signs Extremities: No calf tenderness, noncyanotic, no pedal edema appreciated, warm, lower extremity pulses palpable and symmetrical Neurological: Alert and oriented 3, no facial droop, no focal deficits Skin: Dry, intact, normal color - Lab 09/09/16 05:42 09/09/16 05:42 Most recent lab results ABG pH 7.29 pH Units (7.32-7.45) L 09/06/16 11:51 ABG pCO2 61 mmHg (35-45) H 09/06/16 11:51 ABG pO2 84 mmHg (85-104) L 09/06/16 11:51 ABG HCO3 29.3 mEQ/L (21-27) H 09/06/16 11:51 ABG O2 Saturation 95 % (95-98) 09/06/16 11:51 Calcium 8.6 mg/dL (8.6-10.8) 09/09/16 05:42 Phosphorus 7.5 mg/dL (2.3-4.7) H 09/05/16 01:26 Magnesium 1.7 mg/dL (1.6-2.6) 09/07/16 04:44 Consult Discharge Plan - Plan Instructions: Heart Failure (DC), Atrial Fibrillation (DC), Cirrhosis (DC), Cirrhosis (GEN), Acute Kidney Injury (DC), Acute Kidney Injury (GEN), Urinary Tract Infection in Men (DC), Hemodialysis (DC), Hemodialysis (GEN), Dialysis Diet (DC), Dialysis Diet (GEN), Diabetes Mellitus Type 2 in Adults (DC), Viral Hepatitis C (DC), Viral Hepatitis C (GEN), Arteriovenous Fistula Creation for Hemodialysis (DC), Chronic Hypertension (DC), Hypotension (DC), Anemia (GEN), Viral Hepatitis C, Cooler Supervisor (GEN) Referrals: Rachele Sánchez MD [Partnered Physician] - 09/16/16 9:20 am (This is for consult. Then she will determine when to do the spinal injection after this appt.) [facility] [Primary Care Provider] - 09/18/16 1:30 pm <Jazmín Thomson - Last Filed: 09/26/16 07:09> Date of Encounter: 09/09/16 Objective - Lab 09/10/16 05:46 09/10/16 04:27 Most recent lab results ABG pH 7.29 pH Units (7.32-7.45) L 09/06/16 11:51 ABG pCO2 61 mmHg (35-45) H 09/06/16 11:51 ABG pO2 84 mmHg (85-104) L 09/06/16 11:51 ABG HCO3 29.3 mEQ/L (21-27) H 09/06/16 11:51 ABG O2 Saturation 95 % (95-98) 09/06/16 11:51 Calcium 8.5 mg/dL (8.6-10.8) L 09/10/16 04:27 Phosphorus 7.5 mg/dL (2.3-4.7) H 09/05/16 01:26 Magnesium 1.7 mg/dL (1.6-2.6) 09/07/16 04:44 - Attending Attestation I examined this patient and my medical decision-making was reviewed with the GRADES 9 THROUGH 12 TEACHER/PA/Advanced Practice Nurse/Resident Physician. I agree with the documented findings, disposition and treatment plan as described except to the extent set forth below. Pt seen and examined s/p HD yesterday with no issues awaiting info on back issues. Potassium normalized after HD. Hgb low but stable. Will monitor for any dialytic need over weekend but need HD planned for thursday.
--- NOTE | 2016-09-09 13:59 | Spinal Consult Note ---
Date of Encounter: 09/09/16 Time of Encounter: 13:57 Assessment and Plan (1) Spondylolisthesis at L4-L5 level Current Visit: Yes Status: Chronic On exam he is afebrile vital signs are stable. He has a markedly obese abdomen. He is neurovascularly intact with regard to his bilateral upper and lower extremities. He has a normal gait pattern. His hips move symmetrically. He has no clonus. He has a negative Hafsa sign. MRI of the cervical spine from July 2016 is essentially within normal limits. Thoracic spine reveals an upper thoracic syrinx. There are mild multilevel degenerative changes and some mild stenosis. MRI of the lumbar spine reveals a grade 1 spondylolisthesis at L4-5 with associated mild stenosis. There are multilevel degenerative changes most apparent at the L4-5 level. Impression: 1) Thoracic syrinx- this is likely incidental and can be followed with a repeat thoracic MRI examination in a year to evaluate for enlargement. 2) lumbar spondylolisthesis L4-5- the patient is set up through the MD for outpatient physical therapy at [facility]. I agree with this formal physical therapy and low back program which should include core and lower extremities strengthening exercises. I would also continue physical therapy consultations while he is an inpatient. I would also suggest outpatient lumbar epidural steroid injections. Please have her follow-up with Dr. Rachele Sánchez in the [facility] for discussion of the risk and benefits of this procedure. He does not have any acute indications for operative intervention at this time. (2) Syrinx Current Visit: Yes Status: Chronic (3) Lumbar stenosis without neurogenic claudication Current Visit: Yes Status: Chronic History of Present Illness Chief complaint: Low back pain, chronic HPI: Mr. Betts is a 76 year old male Dialysis patient who was admitted with mental status changes and has been treated for anemia and low back pain. We are asked to see regarding his chronic back pain which he states this occurred since his teenage years. He had a recent asthma exacerbation of his symptoms which prompted spinal axis workup late July and this month. We are asked to see regarding treatment recommendations. He denies any bowel bladder symptoms, focal weakness, or radicular symptoms in upper and lower extremities. He denies any fevers or chills. He is a fairly poor historian. Past Med Surg Social Fam HX - Past Medical History Medical history: cancer, cirrhosis, diabetes, dialysis, hepatitis, hypertension , liver disease, other Psychiatric history: no psych history, other - Past Surgical History Surgical History: appendectomy, orthopedic, other, other (Dialysis shunt, TURP) - Social History Smoking Status: Current every day smoker Smokeless Tobacco Status: No Alcohol use: none Drug use: none Medications and Allergies Amlodipine [Norvasc] 5 mg PO HS 08/03/15 [History] Insulin ASPART [NovoLOG] 18 unit SQ TIDAC 08/03/15 [History] Insulin Glargine,Hum.rec.anlog [Lantus Solostar] 50 unit SQ HS 08/03/15 [History ] Levothyroxine [Synthroid] 125 mcg PO QAM 08/03/15 [History] Lisinopril [Zestril] 20 mg PO DAILY 08/03/15 [History] Renal Vitamin [Renal Caps Softgel] 1 mg PO DAILY 08/03/15 [History] Calcium Acetate [Phos-LO] 1,334 mg PO TIDWM 08/31/15 [History] Terazosin [Hytrin] 10 mg PO HS 08/31/15 [History] Aspirin 325 mg PO DAILY 09/02/16 [History] Azelastine 0.1% Nasal [place] [Astelin] 2 spray NS BID 09/02/16 [History] Capsaicin [Arthritis Pain Relief] 1 appl TP 5XD PRN 09/02/16 [History] Eucerin Creme 1 appl TP BID 09/02/16 [History] Insulin ASPART [NovoLOG] 5 unit SQ QPM 09/02/16 [History] Allergies venom-honey bee [bee venom (honey bee)] Allergy (Severe, Verified 08/03/15 10:53 ) Anaphylaxis felodipine Adverse Reaction (Verified 08/03/15 10:53) LACK OF THERAPY gabapentin Adverse Reaction (Verified 09/02/16 17:02) See Comments isosorbide Adverse Reaction (Verified 09/02/16 18:52) se va list metformin Adverse Reaction (Verified 08/03/15 10:53) KIDNEY DAMAGE metoprolol Adverse Reaction (Verified 08/03/15 10:53) LACK OF THERAPY propranolol Adverse Reaction (Verified 09/07/16 11:03) Confusion Results - Labs Result Diagrams: 09/09/16 05:42 09/09/16 05:42 Labs: Abnormal lab results RBC 2.00 M/mcL (4.19-5.50) L 09/09/16 05:42 Hgb 7.2 g/dL (12.9-16.9) L 09/09/16 05:42 Hct 20.6 % (37.5-50.1) L 09/09/16 05:42 MCV 103.0 fL (83.0-100.0) H 09/09/16 05:42 MCH 36.0 pg (28.0-33.3) H 09/09/16 05:42 RDW 18.1 % (11.5-14.5) H 09/09/16 05:42 Plt Count 104 K/mcL (140-400) L 09/09/16 05:42 PT 12.9 Seconds (9.4-12.1) H 09/02/16 18:18 ABG pH 7.29 pH Units (7.32-7.45) L 09/06/16 11:51 ABG pCO2 61 mmHg (35-45) H 09/06/16 11:51 ABG pO2 84 mmHg (85-104) L 09/06/16 11:51 ABG HCO3 29.3 mEQ/L (21-27) H 09/06/16 11:51 ABG Total CO2 31.2 mEq/L (20-26) H 09/06/16 11:51 Potassium 4.8 mEq/L (3.5-4.5) H D 09/09/16 05:42 BUN 40 mg/dL (8-26) H D 09/09/16 05:42 Creatinine 6.01 mg/dL (0.72-1.25) H 09/09/16 05:42 Est GFR ( Amer) 11 (> 60) L 09/09/16 05:42 Est GFR (Non-Af Amer) 9 (> 60) L 09/09/16 05:42 Glucose 117 mg/dL (70-99) H 09/09/16 05:42 POC Glucose 172 (58-89) H 09/08/16 20:50 Phosphorus 7.5 mg/dL (2.3-4.7) H 09/05/16 01:26 B-Natriuretic Peptide 394 pg/mL (0-100) H 09/03/16 05:02 Albumin 3.2 g/dL (3.5-5.0) L 09/06/16 04:52 Albumin/Globulin Ratio 1.0 (1.1-2.2) L 09/06/16 04:52 Methylmalonic Acid 0.92 umol/L (0.00-0.40) H 09/03/16 15:55 H & H 09/09/16 Range/Units 05:42 Hgb 7.2 L (12.9-16.9) g/dL Hct 20.6 L (37.5-50.1) % All other labs normal. Consult Discharge Plan - Plan Instructions: Heart Failure (DC), Atrial Fibrillation (DC), Cirrhosis (DC), Cirrhosis (GEN), Acute Kidney Injury (DC), Acute Kidney Injury (GEN), Urinary Tract Infection in Men (DC), Hemodialysis (DC), Hemodialysis (GEN), Dialysis Diet (DC), Dialysis Diet (GEN), Diabetes Mellitus Type 2 in Adults (DC), Viral Hepatitis C (DC), Viral Hepatitis C (GEN), Arteriovenous Fistula Creation for Hemodialysis (DC), Chronic Hypertension (DC), Hypotension (DC), Anemia (GEN), Viral Hepatitis C, Medicine Worker (GEN) [facility]errals: [facility] [Primary Care Provider] -
--- NOTE | 2016-09-09 16:35 | Internal Med Progress Note ---
Date of Encounter: 09/09/16 Time of Encounter: 16:00 - Assessment and plan (1) Acute metabolic encephalopathy Current Visit: Yes Status: Acute Assessment and plan: Seems to be back at baseline today. Very happy about Dr. Holman and his plan. Anticipate d/c home tomorrow. (2) JOSÉ MANUEL (obstructive sleep apnea) Current Visit: Yes Status: Acute Assessment and plan: Pt already on treatment at home. (3) Back pain Current Visit: Yes Status: Acute Assessment and plan: Appreciate Dr. Holman's input. To have blocks arranged. Outpatient PT after discharge Qualifiers: Back pain location: low back pain Back pain laterality: bilateral Sciatica presence: with sciatica Qualified Code(s): M54.41 - Lumbago with sciatica, right side; G89.29 - Other chronic pain (4) Anemia Current Visit: No Status: Acute Assessment and plan: Treatment per renal service. Qualifiers: Anemia type: other cause Other causes of anemia: chronic disease, kidney Qualified Code(s): N18.9 - Chronic kidney disease, unspecified; D63.1 - Anemia in chronic kidney disease (5) ESRD (end stage renal disease) Current Visit: Yes Status: Chronic Assessment and plan: Dialysis per renal service. (6) History of hepatitis C Current Visit: No Status: Chronic Assessment and plan: Currently does not appear to have any acute issues. (7) Hypertension Current Visit: No Status: Chronic Assessment and plan: Monitoring at this time. Meds adjusted as needed. Qualifiers: Hypertension type: essential hypertension Qualified Code(s): I10 - Essential (primary) hypertension (8) Diabetes Current Visit: Yes Status: Acute Assessment and plan: Home insulin regimen started and accucheck monitoring. Qualifiers: Diabetes mellitus type: type 2 Diabetes mellitus complication status: with kidney complications Diabetes mellitus complication detail: with chronic kidney disease Diabetes mellitus vermin exterminator insulin use: with vermin exterminator use Chronic kidney disease stage: on chronic dialysis Qualified Code(s): E11.22 - Type 2 diabetes mellitus with diabetic chronic kidney disease; N18.6 - End stage renal disease; Z79.4 - termite control representative (current) use of insulin; Z99.2 - Dependence on renal dialysis - Subjective Interval history: Mr. Betts is currently admitted for anemia and fluid overload with ESRD. He is moderate to high risk due to potential for worsening respiratory and cardiac status. Mr. Betts was excited to see Dr. Holman and have treatment set up. He wants to go home not to rehab. No new medical issues overnight. No GI symptoms. To have dialysis and transfusion tomorrow. - Constitutional Vitals: Temp Pulse Resp BP Pulse Ox 98.2 F 56 17 118/58 92 09/09/16 16:00 09/09/16 16:00 09/09/16 16:00 09/09/16 16:00 09/09/16 16:00 General appearance: Present: A&O X 3, pleasant, answers questions appropriately - Head Head exam: Present: normocephalic - Eye Eye exam: Present: EOMI, conjuntiva pink - ENT ENT exam: Present: mucous membranes dry - Respiratory Respiratory exam: Present: decreased breath sounds, wheezes - Cardiovascular Cardiovascular exam: Present: RRR. Absent: tachycardia - GI/Abdominal GI/Abdominal exam: Present: distended, soft. Absent: tenderness - Extremities Exam Extremities exam: Present: pedal edema, warm - Neurological Exam Neurological exam: Present: alert, oriented X3 - Psychiatric Psychiatric exam: Present: normal affect - Skin Skin exam: Present: warm. Absent: rash Internal Medicine: Result - Labs CBC & Chem 7: 09/09/16 05:42 09/09/16 05:42 Labs: Short CBC 09/09/16 Range/Units 05:42 WBC 5.4 (4.3-11.1) K/mcL Hgb 7.2 L (12.9-16.9) g/dL Hct 20.6 L (37.5-50.1) % Plt Count 104 L (140-400) K/mcL BMP 09/09/16 05:42 Sodium 137 Potassium 4.8 H D Chloride 99 Carbon Dioxide 29 BUN 40 H D Creatinine 6.01 H Glucose 117 H Calcium 8.6 - ABG Interpretation ABG results: ABG ABG pH 7.29 pH Units (7.32-7.45) L 09/06/16 11:51 ABG pCO2 61 mmHg (35-45) H 09/06/16 11:51 ABG pO2 84 mmHg (85-104) L 09/06/16 11:51 ABG O2 Saturation 95 % (95-98) 09/06/16 11:51 PT/INR, D-dimer PT 12.9 Seconds (9.4-12.1) H 09/02/16 18:18 Consult Discharge Plan - Plan Instructions: Heart Failure (DC), Atrial Fibrillation (DC), Cirrhosis (DC), Cirrhosis (GEN), Acute Kidney Injury (DC), Acute Kidney Injury (GEN), Urinary Tract Infection in Men (DC), Hemodialysis (DC), Hemodialysis (GEN), Dialysis Diet (DC), Dialysis Diet (GEN), Diabetes Mellitus Type 2 in Adults (DC), Viral Hepatitis C (DC), Viral Hepatitis C (GEN), Arteriovenous Fistula Creation for Hemodialysis (DC), Chronic Hypertension (DC), Hypotension (DC), Anemia (GEN), Viral Hepatitis C, Oxidized Finish Plater (GEN) Referrals: [facility],PCP [Primary Care Provider] -
[2016-09-09] MEDS: amLODIPine 5 MG TABLET PO SCH (20:11)
[2016-09-09] MEDS: LATANOPROST OP SCH (20:15)
[2016-09-10 05:24] LABS: Calcium 8.5 mg/dL (8.6-10.8)
[2016-09-10 05:30] LABS: Potassium 5.4 mEq/L (3.5-4.5)
[2016-09-10] MEDS: *HR* Heparin 5,000 UNIT/ML VIAL SQ SCH ×2 (06:33→06:38)
[2016-09-10 08:23] LABS: Hematocrit 23.4 % (37.5-50.1); Hemoglobin 7.8 g/dL (12.9-16.9); Mean Corpuscular HGB Conc 33.3 g/dL (31.6-35.5); Mean Corpuscular Hemoglobin 33.9 pg (28.0-33.3); Mean Platelet Volume 10.8 fL (9.4-12.4); Platelet Count 102 K/mcL (140-400); Red Cell Distribution Width 17.8 % (11.5-14.5)
[2016-09-10 08:25] LABS: Mean Corpuscular Volume 101.7 fL (83.0-100.0)
[2016-09-10] MEDS: Insulin LISPRO 300 UNITS/3 ML VIAL SQ SCH ×4 (08:27→12:01)
[2016-09-10] MEDS: Renal Vitamin 1 MG CAPSULE PO SCH (08:34)
[2016-09-10] MEDS: Calcium Acetate 667 MG CAPSULE PO SCH ×2 (08:34→12:02)
[2016-09-10] MEDS: Aspirin 325 MG TABLET PO SCH (08:34)
[2016-09-10] MEDS: Cyanocobalamin (B-12) 1,000 MCG/ML VIAL IM SCH (08:34)
[2016-09-10] MEDS: Eucerin Cream 57 GM TUBE TP SCH (08:35)
[2016-09-10] MEDS: Insulin DETEMIR 100 UNIT/ML X5UNITS SQ SCH (08:38)
[2016-09-10] MEDS: Lisinopril 20 MG TABLET PO SCH (08:45)
--- NOTE | 2016-09-10 08:48 | Nephrology Progress Note ---
<Flavio England - Last Filed: 09/10/16 08:54> Date of Encounter: 09/10/16 Time of Encounter: 08:20 - Assessment and Plan (1) ESRD (end stage renal disease) Status: Chronic Patient receiving HD M,W,F. He has no reports of missing any sessions, will continue HD per his normal schedule. Continue renal diet Renally dose medications We will transfuse pRBCs during dialysis today Patient stable to continue his normal HD routine (2) Anemia Status: Acute Patient current anemia likely chronic in nature given past hemoglobin levels, normal iron studies, normal B12, and normal folate. MMA levels elevated, started on vitamin B12. Will order pRBCs to be given during next HD Aranesp dose changed to 100 g weekly MMA level elevated, started B12 previously Qualifiers: Anemia type: other cause Other causes of anemia: chronic disease, kidney Qualified Code(s): N18.9 - Chronic kidney disease, unspecified; D63.1 - Anemia in chronic kidney disease (3) Hyperkalemia Status: Acute Potassium at 5.4 today. This levels not unusual for him, plan for normally scheduled dialysis today. Hemodialysis per patient usual schedule (Thursday, Thursday, Thursday) Continue to monitor potassium level with daily labs (4) Cirrhosis of liver Status: Chronic Likely due to patient hepatitis C Currently no acute issues Continue management per primary team Qualifiers: Hepatic cirrhosis type: unspecified hepatic cirrhosis Ascites presence: without ascites Qualified Code(s): K74.60 - Unspecified cirrhosis of liver (5) Diabetes Status: Acute Blood sugar control per primary team Qualifiers: Diabetes mellitus type: type 2 Diabetes mellitus complication status: with kidney complications Diabetes mellitus complication detail: with chronic kidney disease Diabetes mellitus group home insulin use: with group home use Chronic kidney disease stage: on chronic dialysis Qualified Code(s): E11.22 - Type 2 diabetes mellitus with diabetic chronic kidney disease; N18.6 - End stage renal disease; 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 He has no concerns/ complaints currently. He states she has had improvement in his shortness of breath since admission. States that he feels belly is softer. No complaints of weakness or fatigue. Does reiterate that he does not like being restricted to 2 feet of his bed. Objective - Vital Signs Vital signs: Vital Signs Temp Pulse Resp BP Pulse Ox 09/10/16 08:06 98 F 68 16 138/43 93 09/10/16 05:45 98.7 F 68 16 129/59 94 09/09/16 20:19 98.7 F 85 17 124/48 95 09/09/16 20:11 95 09/09/16 16:00 98.2 F 56 17 118/58 92 Intake and Output 09/09/16 09/10/16 09/10/16 23:59 07:59 15:59 Intake Total 0 / 0 Output Total 0 / 0 Balance 0 / 0 Intake: Oral 0 / 0 Output: Urine 0 / 0 Other: Weight 116 kg Blood Glucose* 160 123 Patient Weight 09/10/16 23:59 Weight 116 kg - General Appearance Exam: General: Cooperative, pleasant, no acute distress, alert and oriented 3, answers questions appropriately Head: Normocephalic, atraumatic Eye: Conjunctiva pink, sclera anicteric Neck: Supple, trachea midline Respiratory: No accessory muscle usage, clear to auscultation bilaterally, no wheezes/rhonchi/rales appreciated Cardiovascular: Regular rate and rhythm, S1 and S2 present, no murmurs/rubs/ gallops/clicks appreciated GI/abdominal: Distended, nontender, soft, normal bowel sounds, no peritoneal signs Extremities: No calf tenderness, noncyanotic, +1 pedal edema bilaterally, warm, lower extremity pulses palpable and symmetrical Neurological: Alert and oriented 3, no facial droop, no focal deficits Skin: Dry, intact, normal color HD access: AV fistula in left forearm, bruit present, thrill present - Lab 09/10/16 05:46 09/10/16 04:27 Most recent lab results ABG pH 7.29 pH Units (7.32-7.45) L 09/06/16 11:51 ABG pCO2 61 mmHg (35-45) H 09/06/16 11:51 ABG pO2 84 mmHg (85-104) L 09/06/16 11:51 ABG HCO3 29.3 mEQ/L (21-27) H 09/06/16 11:51 ABG O2 Saturation 95 % (95-98) 09/06/16 11:51 Calcium 8.5 mg/dL (8.6-10.8) L 09/10/16 04:27 Phosphorus 7.5 mg/dL (2.3-4.7) H 09/05/16 01:26 Magnesium 1.7 mg/dL (1.6-2.6) 09/07/16 04:44 Consult Discharge Plan - Plan Instructions: Heart Failure (DC), Atrial Fibrillation (DC), Cirrhosis (DC), Cirrhosis (GEN), Acute Kidney Injury (DC), Acute Kidney Injury (GEN), Urinary Tract Infection in Men (DC), Hemodialysis (DC), Hemodialysis (GEN), Dialysis Diet (DC), Dialysis Diet (GEN), Diabetes Mellitus Type 2 in Adults (DC), Viral Hepatitis C (DC), Viral Hepatitis C (GEN), Arteriovenous Fistula Creation for Hemodialysis (DC), Chronic Hypertension (DC), Hypotension (DC), Anemia (GEN), Viral Hepatitis C, 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 Then she will determine when to do the spinal injection after this appt.) [facility] [Primary Care Provider] - 09/18/16 1:30 pm <Jazmín Thomson - Last Filed: 09/26/16 07:23> Date of Encounter: 09/10/16 Objective - Lab 09/10/16 05:46 09/10/16 04:27 Most recent lab results ABG pH 7.29 pH Units (7.32-7.45) L 09/06/16 11:51 ABG pCO2 61 mmHg (35-45) H 09/06/16 11:51 ABG pO2 84 mmHg (85-104) L 09/06/16 11:51 ABG HCO3 29.3 mEQ/L (21-27) H 09/06/16 11:51 ABG O2 Saturation 95 % (95-98) 09/06/16 11:51 Calcium 8.5 mg/dL (8.6-10.8) L 09/10/16 04:27 Phosphorus 7.5 mg/dL (2.3-4.7) H 09/05/16 01:26 Magnesium 1.7 mg/dL (1.6-2.6) 09/07/16 04:44 - Attending Attestation I examined this patient and my medical decision-making was reviewed with the PROPOSAL MANAGER WRITER/PA/Advanced Practice Nurse/Resident Physician. I agree with the documented findings, disposition and treatment plan as described except to the extent set forth below. Pt seen and examined on HD with no new complaints. Continue HD today (thursday not thursday as mistakely mentioned on last note) as tolerated. Potassium slightly elevated, should improve after HD. Hgb stable but low, continue aranesp and transfuse prn.
[2016-09-10] MEDS ORDERED: 0.9 % Sodium Chloride 250 ML IVC PRN (09:35)
[2016-09-10] MEDS ORDERED: 0.9 % Sodium Chloride 1,000 ML PRIME SCH (09:45)
[2016-09-10 10:00] LABS: Alpha 2 Globulin (PEP) 0.49 g/dL (0.48-1.05); Beta Globulin (PEP) 0.57 g/dL (0.48-1.10)
--- NOTE | 2016-09-10 14:13 | Discharge Summary ---
Date of Encounter: 09/10/16 Time of Encounter: 15:06 - Discharge Diagnosis (1) Back pain Priority: Primary Status: Acute Qualifiers: Back pain location: low back pain Back pain laterality: bilateral Sciatica presence: with sciatica Qualified Code(s): M54.41 - Lumbago with sciatica, right side; G89.29 - Other chronic pain (2) Anemia Priority: Primary Status: Acute Qualifiers: Anemia type: other cause Other causes of anemia: chronic disease, kidney Qualified Code(s): N18.9 - Chronic kidney disease, unspecified; D63.1 - Anemia in chronic kidney disease (3) Acute metabolic encephalopathy Priority: Secondary Status: Acute (4) JOSÉ MANUEL (obstructive sleep apnea) Priority: Secondary Status: Acute (5) ESRD (end stage renal disease) Priority: Primary Status: Chronic (6) History of hepatitis C Priority: Secondary Status: Chronic (7) Hypertension Priority: Secondary Status: Chronic Qualifiers: Hypertension type: essential hypertension Qualified Code(s): I10 - Essential (primary) hypertension (8) Diabetes Priority: Secondary Status: Acute Qualifiers: Diabetes mellitus type: type 2 Diabetes mellitus complication status: with kidney complications Diabetes mellitus complication detail: with chronic kidney disease Diabetes mellitus care home insulin use: with care home use Chronic kidney disease stage: on chronic dialysis Qualified Code(s): E11.22 - Type 2 diabetes mellitus with diabetic chronic kidney disease; N18.6 - End stage renal disease; Z79.4 - long-term (current) use of insulin; Z99.2 - Dependence on renal dialysis - Discharge Medications Home Medications: Amlodipine [Norvasc] 5 mg PO HS 08/03/15 [History] Insulin ASPART [NovoLOG] 18 unit SQ TIDAC 08/03/15 [History] Insulin Glargine,Hum.rec.anlog [Lantus Solostar] 50 unit SQ HS 08/03/15 [History ] Levothyroxine [Synthroid] 125 mcg PO QAM 08/03/15 [History] Lisinopril [Zestril] 20 mg PO DAILY 08/03/15 [History] Renal Vitamin [Renal Caps Softgel] 1 mg PO DAILY 08/03/15 [History] Calcium Acetate [Phos-LO] 1,334 mg PO TIDWM 08/31/15 [History] Terazosin [Hytrin] 10 mg PO HS 08/31/15 [History] Aspirin 325 mg PO DAILY 09/02/16 [History] Azelastine 0.1% Nasal [place] [Astelin] 2 spray NS BID 09/02/16 [History] Capsaicin [Arthritis Pain Relief] 1 appl TP 5XD PRN 09/02/16 [History] Eucerin Creme 1 appl TP BID 09/02/16 [History] Insulin ASPART [NovoLOG] 5 unit SQ QPM 09/02/16 [History] Patient Taking Own Medication 0 each OP HS each 09/10/16 [Rx] Allergies/Adverse Reactions: Allergies venom-honey bee [bee venom (honey bee)] Allergy (Severe, Verified 08/03/15 10:53 ) Anaphylaxis felodipine Adverse Reaction (Verified 08/03/15 10:53) LACK OF THERAPY gabapentin Adverse Reaction (Verified 09/02/16 17:02) See Comments isosorbide Adverse Reaction (Verified 09/02/16 18:52) se va list metformin Adverse Reaction (Verified 08/03/15 10:53) KIDNEY DAMAGE metoprolol Adverse Reaction (Verified 08/03/15 10:53) LACK OF THERAPY propranolol Adverse Reaction (Verified 09/07/16 11:03) Confusion Date of admission: 09/03/16 09:37 Primary care physician: [facility]CP [facility] Consults: 09/03/16 15:45 Consult to Dialysis [CONS] ONCE 09/04/16 09:32 Consult to Occupational Therapy [CONS] Routine Comment: Evaluate, develop and implement POC Consult to Physical Therapy [CONS] Routine Comment: Evaluate, develop and implement POC 09/04/16 15:59 Consult to Bee Breeder [CONS] Routine Reason for SW Consult: PT recommending inpt swing bed 09/05/16 08:15 Consult to Dialysis [CONS] ONCE 09/07/16 11:47 consult to television servicer [Consult to Nutrition] [CONS] Routine Comment: weight loss diet. pt with dm and esrd Consulting Provider: NUTRITION Reason for Dietary Consult: Diet Education 09/08/16 08:15 Consult to Dialysis [CONS] ONCE 09/08/16 10:02 Consult to Orthopedic Surgery [CONS] Routine Consulting Provider: Orthopedics [facility] Reason for Consult: Dr Holman for spine issues Time Notified: 09:30 Call Completed: Yes 09/10/16 09:45 Consult to Dialysis [CONS] ONCE Discharging clinician: Bayron Rainey Anticipated date of discharge: 09/10/16 - Patient Status Disposition: Home, Self-Care Condition: Fair Functional capacity at discharge: independent ambulation Overall status at discharge: patient is progressing back to baseline - Discharge Instructions Instructions: Heart Failure (DC), Atrial Fibrillation (DC), Cirrhosis (DC), Cirrhosis (GEN), Acute Kidney Injury (DC), Acute Kidney Injury (GEN), Urinary Tract Infection in Men (DC), Hemodialysis (DC), Hemodialysis (GEN), Dialysis Diet (DC), Dialysis Diet (GEN), Diabetes Mellitus Type 2 in Adults (DC), Viral Hepatitis C (DC), Viral Hepatitis C (GEN), Arteriovenous Fistula Creation for Hemodialysis (DC), Chronic Hypertension (DC), Hypotension (DC), Anemia (GEN), Viral Hepatitis C, 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 Betts is a 76 year old male with hx of ESRD transferred to [place] from [facility] due to anemia and fluid overload. Pt stated he went to the [facility] due to persistent back pain with R leg parasthesias. He was found to be fluid overloaded and anemic and transferred here. He was evaluated and subsequently admitted. Mr. Betts was admitted to [facility]. He was seen by nephrology and dialysis was continued with increased fluid removal. He was anemic and B12 levels were borderline low therefore he was given B12. He was also started on Aranesp. He received blood transfusions as well. No overt bleeding was noted and the presumption was that it is related to ESRD. Mr. Betts discussed his workup of his back pain. He already had an LS MRI and C spine MRI. He was due to have Thoracic MRI and this was performed here. Small syrinx noted. He continues to have lower back pain here. After the MRI he was much more confused and the thought was it was the Ativan. Symptoms persisted and it was noted he was on [place] and Propranolol (which he hadn't had in a long time). Both medications were stopped and he improved. He was evaluated by Dr. Holman and is to have outpatient spine injections. On 09/10/16 he was feeling well. He was afebrile with good vitals. He was ready for discharge home. Of note his echo showed pulmonary hypertension. He has JOSÉ MANUEL but does not wear his CPAP at night, only with naps. - Time Spent with Patient Total time spent providing and/or coordinating discharge services: 40min - Constitutional Vitals: Temp Pulse Resp BP Pulse Ox 97.9 F 68 20 101/55 93 09/10/16 12:20 09/10/16 12:20 09/10/16 12:20 09/10/16 13:35 09/10/16 08:49 General appearance: Present: A&O X 3, pleasant, answers questions appropriately - Head Head exam: Present: normocephalic - Eye Eye exam: Present: conjuntiva pink - ENT ENT exam: Present: mucous membranes dry - Respiratory Respiratory exam: Present: decreased breath sounds. Absent: rhonchi, wheezes - Cardiovascular Cardiovascular exam: Present: RRR. Absent: tachycardia - GI/Abdominal GI/Abdominal exam: Present: distended, soft - Extremities Exam Extremities exam: Present: pedal edema, warm - Neurological Exam Neurological exam: Present: alert, motor sensory deficit, oriented X3 - Psychiatric Psychiatric exam: Present: normal affect, normal mood - Skin Skin exam: Present: warm. Absent: rash
[2016-09-10 14:37] VITALS: BP 116/42
[2016-09-11 07:17] LABS: IFE Reflexed NOT DONE
[2016-09-11] MEDS ORDERED: Darbepoetin 100 MCG/0.5 ML SYRINGE SQ SCH (15:00)
== END 2016-09-10 16:10 | disposition home or self-care (01) | DRG 682 ==
LOC: 2NENU 16:53 → EMEROO 16:53 → 2NENU 20:42
PROVIDERS: ADMIT Internal Medicine; ATTEND Internal Medicine

== ENCOUNTER 2017-10-15 17:19 | Inpatient (IN) ==
--- NOTE | 2017-10-15 17:38 | Emergency Department Note ---
Disposition Clinical Impression: Hypoxia, History of renal dialysis Dyspnea Qualifiers: Dyspnea type: unspecified Qualified Code(s): R06.00 - Dyspnea, unspecified Disposition: Admitted As Inpatient Condition: Good Time of Disposition: 17:44 SOB HPI - General Chief Complaint: ED Shortness of Breath/Dyspnea Stated Complaint: JUAN ALBERTO at night Time Seen by Provider: 10/15/17 17:30 Source: patient Mode of arrival: ambulatory Limitations: no limitations Nursing Notes Reviewed: Yes Vital Signs Reviewed: Yes - History of Present Illness Patient is a 77-year-old male with past medical history of end-stage renal disease, dialysis Thursday, Thursday, Thursday. Last dialysis was yesterday. Chronic anemia, pulmonary hypertension, A. fib and currently only on aspirin. No other blood thinners. Type 2 diabetes, hyperlipidemia, HTN. He presents today as a transfer from the [facility] due to shortness of breath. He does have a history of CHF, uses CPAP at night. Over the past week, patient has noticed increased abdominal swelling. Denies any increase in lower extremity swelling. He has shortness of breath mainly when he lays back at night. EMS states that the patient has been desatting to around 85-86% while on RA at night. He denies any chest pain, fevers, N/V/D, abdominal pain, dysuria , hematuria. - Related Data Home Medications Medication Instructions Recorded Confirmed Insulin ASPART [NovoLOG] 10 unit SQ TIDAC 08/03/15 10/15/17 Insulin Glargine,Hum.rec.anlog 45 unit SQ ONCE 08/03/15 10/15/17 [Lantus Solostar] Lisinopril [Zestril] 20 mg PO DAILY 08/03/15 10/15/17 Renal Vitamin [Renal Caps Softgel] 1 mg PO DAILY 08/03/15 10/15/17 amLODIPine [Norvasc] 5 mg PO HS 08/03/15 10/15/17 Calcium Acetate [Phos-LO] 2,001 mg PO TIDWM 08/31/15 10/15/17 Terazosin [Hytrin] 10 mg PO HS 08/31/15 10/15/17 Azelastine 0.1% Nasal [place] 2 spray NS BID PRN 09/02/16 10/15/17 [Astelin] Capsaicin [Arthritis Pain Relief] 1 appl TP 5XD PRN 09/02/16 10/15/17 Eucerin Creme 1 appl TP BID 09/02/16 10/15/17 Insulin ASPART [NovoLOG] 5 unit SQ QPM 09/02/16 10/15/17 Latanoprost [Xalatan] 1 drop RIGHT EYE HS 02/03/17 10/15/17 Levothyroxine Sodium [Synthroid] 137 mcg PO QAM 02/03/17 10/15/17 Propranolol [Inderal] 10 mg PO BID 02/03/17 10/15/17 Aspirin [Lo-Dose Aspirin EC] 81 mg PO DAILY 10/15/17 10/15/17 Tramadol HCl [Ultram] 50 mg PO DAILY PRN 10/15/17 10/15/17 Allergies Allergy/AdvReac Type Severity Reaction Status Date / Time venom-honey bee Allergy Severe Anaphylaxis Verified 10/15/17 18:12 [bee venom (honey bee)] felodipine AdvReac LACK OF Verified 10/15/17 18:12 THERAPY gabapentin AdvReac See Verified 10/15/17 18:12 Comments isosorbide AdvReac se Verified 10/15/17 18:12 metformin AdvReac KIDNEY Verified 10/15/17 18:12 DAMAGE metoprolol AdvReac LACK OF Verified 10/15/17 18:12 THERAPY All systems ED: reviewed and negative except as stated. Constitutional: Denies: fever Cardiovascular: Reports: orthopnea. Denies: chest pain Respiratory: Reports: dyspnea Gastrointestinal: Denies: abdominal pain, nausea, vomiting, diarrhea Genitourinary: Denies: urgency, dysuria Integumentary: Denies: rash Neurological: Denies: headache, weakness, numbness Past Medical History - Past Medical History Attestation: Yes The following information was validated with the patient. Source: patient Medical history: Reports: cancer, cirrhosis, diabetes, dialysis, hepatitis, hypertension, liver disease Surgical history: Reports: appendectomy, orthopedic, other Psychiatric history: Reports: no psych history, other - Social History Smoking Status: Former smoker Smokeless Tobacco Status: No Alcohol use: Reports: none Drug use: Reports: none Physical Exam - General Limitations: no limitations General appearance: alert, in no apparent distress - Head Head exam: atraumatic, normocephalic, normal inspection - Eye Eye exam: Present: normal appearance, PERRL, EOMI - ENT ENT exam: normal exam, normal oropharynx, mucous membranes moist - Neck Neck exam: Present: normal inspection, full ROM, trachea midline - Chest Chest inspection: Present: normal inspection, symmetric chest wall rise - Respiratory Respiratory exam: Present: normal lung sounds bilaterally - Cardiovascular Cardiovascular exam: Present: regular rate, normal rhythm, normal heart sounds - Abdominal Exam Abdominal exam: Present: tenderness (mild firmness, distention). Absent: guarding, rebound, rigidity, Alcaraz's sign, Rovsing's sign, tenderness at McBurney's Point - Extremities Exam Extremities exam: Present: normal inspection, full ROM. Absent: tenderness, pedal edema - Neurological Exam Neurological exam: Present: alert, oriented X3 - Psychiatric Psychiatric exam: Present: normal affect, normal mood - Skin Skin exam: Present: warm, dry, intact, normal color Course Course Narrative: Patient was satting 91% on RA on presentation. On physical exam, patient had abdominal distention and mild firmness but otherwise nontender. Nonsurgical abdomen. No current abdominal pain. Decreased lung sounds at bilateral lower lobes. Otherwise heart regular rate and rhythm. Extremities showed no significant pedal edema. We will place the patient on 2 L nasal cannula to keep saturation above 88%. We will order basic labs and then admit for further care. Patient has artery been accepted by Dr. Pagan. 18:37 troponin and potassium within normal limits. Otherwise, the rest of the lab work was consistent with previous labs. We will proceed with above plan. Vital Signs Temperature 98.2 F 10/15/17 17:23 Pulse Rate 64 10/15/17 17:23 Respiratory Rate 20 10/15/17 17:23 Blood Pressure 189/84 10/15/17 17:23 O2 Sat by Pulse Oximetry 94 10/15/17 17:23 Temperature 98.2 F 10/15/17 17:23 Pulse Rate 64 10/15/17 17:23 Respiratory Rate 20 10/15/17 17:23 Blood Pressure 189/84 10/15/17 17:23 O2 Sat by Pulse Oximetry 96 10/15/17 17:50 Oxygen Delivery Oxygen Delivery Room Air Shortness of Breath/Dyspnea - MDM Narrative Medical decision making narrative: Patient was satting 91% on RA on presentation. On physical exam, patient had abdominal distention and mild firmness but otherwise nontender. Nonsurgical abdomen. No current abdominal pain. Decreased lung sounds at bilateral lower lobes. Otherwise heart regular rate and rhythm. Extremities showed no significant pedal edema. We will place the patient on 2 L nasal cannula to keep saturation above 88%. We will order basic labs and then admit for further care. Patient has artery been accepted by Dr. Pagan. 18:37 troponin and potassium within normal limits. Otherwise, the rest of the lab work was consistent with previous labs. We will proceed with above plan. - Medical Records Medical records reviewed: Yes I reviewed the patient's medical records. - Lab Data Lab results reviewed: Yes I reviewed the patient's lab results. Result diagrams: 10/15/17 17:30 10/15/17 17:30 Lab Results 10/15/17 10/15/17 10/15/17 Range/Units 17:30 17:30 17:30 WBC 4.4 (4.3-11.1) K/mcL RBC 3.31 L (4.19-5.50) M/mcL Hgb 11.2 L (12.9-16.9) g/dL Hct 32.8 L (37.5-50.1) % MCV 99.1 (83.0-100.0) fL MCH 33.8 H (28.0-33.3) pg MCHC 34.1 (31.6-35.5) g/dL RDW 14.2 (11.5-14.5) % Plt Count 78 L (140-400) K/mcL MPV 10.2 (9.4-12.4) fL Immature Gran % 0.5 (0-4) % Seg Neutrophils % 65.4 % Lymphocytes % 17.7 % Monocytes % 6.2 % Eosinophils % 9.7 % Basophils % 0.5 % Neutrophils # 2.9 (1.6-8.9) K/mcL Lymphocytes # 0.8 (0.6-4.6) K/mcL Monocytes # 0.3 (0.0-1.3) K/mcL Eosinophils # 0.4 (0.0-0.6) K/mcL Basophils # 0.0 (0.0-0.2) K/mcL Immature Plt Fraction 3.3 (1.1-6.1) % PT 12.9 H (9.4-12.1) Seconds INR 1.2 APTT 32.6 (26.0-36.0) Seconds Sodium 139 (136-145) mEq/L Potassium 4.0 (3.5-5.1) mEq/L Chloride 103 (98-107) mEq/L Carbon Dioxide 30 H (23-29) mEq/L BUN 28 H (8-23) mg/dL Creatinine 3.93 H (0.70-1.30) mg/dL Est GFR ( Amer) 18 L (> 60) Est GFR (Non-Af Amer) 15 L (> 60) BUN/Creatinine Ratio 7 (6-26) Glucose 153 H (70-105) mg/dL Calculated Osmolality 297 (280-300) Calcium 9.4 (8.6-10.3) mg/dL Total Bilirubin 0.4 (0.3-1.0) mg/dL Direct Bilirubin 0.2 (0.0-0.2) mg/dL Indirect Bilirubin 0.2 (0.0-1.2) mg/dL AST 31 (13-39) Units/L ALT 32 (7-52) Units/L Alkaline Phosphatase 90 (34-104) Units/L Troponin I 0.03 (< 0.04) ng/mL B-Natriuretic Peptide (Less than 100) pg/mL Serum Total Protein 6.2 L (6.4-8.9) g/dL Albumin 3.4 L (3.5-5.7) g/dL Globulin 2.8 (2.4-3.5) g/dL Albumin/Globulin Ratio 1.2 (1.1-2.2) //18 Range/Units 17:30 WBC (4.3-11.1) K/mcL RBC (4.19-5.50) M/mcL Hgb (12.9-16.9) g/dL Hct (37.5-50.1) % MCV (83.0-100.0) fL MCH (28.0-33.3) pg MCHC (31.6-35.5) g/dL RDW (11.5-14.5) % Plt Count (140-400) K/mcL MPV (9.4-12.4) fL Immature Gran % (0-4) % Seg Neutrophils % % Lymphocytes % % Monocytes % % Eosinophils % % Basophils % % Neutrophils # (1.6-8.9) K/mcL Lymphocytes # (0.6-4.6) K/mcL Monocytes # (0.0-1.3) K/mcL Eosinophils # (0.0-0.6) K/mcL Basophils # (0.0-0.2) K/mcL Immature Plt Fraction (1.1-6.1) % PT (9.4-12.1) Seconds INR APTT (26.0-36.0) Seconds Sodium (136-145) mEq/L Potassium (3.5-5.1) mEq/L Chloride (98-107) mEq/L Carbon Dioxide (23-29) mEq/L BUN (8-23) mg/dL Creatinine (0.70-1.30) mg/dL Est GFR ( Amer) (> 60) Est GFR (Non-Af Amer) (> 60) BUN/Creatinine Ratio (6-26) Glucose (70-105) mg/dL Calculated Osmolality (280-300) Calcium (8.6-10.3) mg/dL Total Bilirubin (0.3-1.0) mg/dL Direct Bilirubin (0.0-0.2) mg/dL Indirect Bilirubin (0.0-1.2) mg/dL AST (13-39) Units/L ALT (7-52) Units/L Alkaline Phosphatase (34-104) Units/L Troponin I (< 0.04) ng/mL B-Natriuretic Peptide 489 H (Less than 100) pg/mL Serum Total Protein (6.4-8.9) g/dL Albumin (3.5-5.7) g/dL Globulin (2.4-3.5) g/dL Albumin/Globulin Ratio (1.1-2.2) - Radiology Data Radiology results reviewed: Yes I reviewed the patient's radiology results. Outside xrays uploading from [place] - EKG Data EKG attestation: Yes I reviewed and interpreted this EKG. EKG results narrative: 10/15/2017 at 17:26. A. fib. Rate 67. QRS 93. QTC 411. Left axis deviation. No acute ST elevation or depression. S.B.A.R. - S.B.A.R. Situation: Demographics, MOA Background: Presenting Complaint, Relevant PMH, Meds, & Allergies Assessment: Vital Signs, Course and respsone to treatment, Exam Concerns, Patient/Family Expectation, Pertinant Lab Results Recommendation: Barrier(s) to disposition, Recommendation based on pending studies, treatments, or consults S.B.A.R. Report Given to: Dr. Pagan
--- NOTE | 2017-10-15 17:59 | Emergency Department Note ---
Disposition Clinical Impression: Hypoxia, History of renal dialysis Dyspnea Qualifiers: Dyspnea type: unspecified Qualified Code(s): R06.00 - Dyspnea, unspecified Disposition: Admitted As Inpatient Condition: Good [facility]errals: [facility] [Primary Care Provider] - Forms: ED Satisfaction Letter General Adult HPI - General Chief complaint: ED Shortness of Breath/Dyspnea Stated complaint: JUAN ALBERTO at night Time Seen by Provider: 10/15/17 17:30 Source: patient Mode of arrival: ambulatory Limitations: no limitations - History of Present Illness Pain Scale: 0 - Related Data Home Medications Medication Instructions Recorded Confirmed Insulin ASPART [NovoLOG] 10 unit SQ TIDAC 08/03/15 02/03/17 Insulin Glargine,Hum.rec.anlog 45 unit SQ ONCE 08/03/15 02/04/17 [Lantus Solostar] Lisinopril [Zestril] 20 mg PO DAILY 08/03/15 02/03/17 Renal Vitamin [Renal Caps Softgel] 1 mg PO DAILY 08/03/15 02/03/17 amLODIPine [Norvasc] 5 mg PO HS 08/03/15 02/03/17 Calcium Acetate [Phos-LO] 2,001 mg PO TIDWM 08/31/15 02/03/17 Terazosin [Hytrin] 10 mg PO HS 08/31/15 02/03/17 Aspirin 325 mg PO DAILY 09/02/16 02/03/17 Azelastine 0.1% Nasal [place] 2 spray NS BID 09/02/16 02/03/17 [Astelin] Capsaicin [Arthritis Pain Relief] 1 appl TP 5XD PRN 09/02/16 02/03/17 Eucerin Creme 1 appl TP BID 09/02/16 02/03/17 Insulin ASPART [NovoLOG] 5 unit SQ QPM 09/02/16 02/03/17 Darbepoetin [Aranesp] 100 mcg SQ QWEEK 02/03/17 02/03/17 HYDROcodone/Acet 5/325 mg [[place] 1 tab PO Q6H PRN 02/03/17 02/03/17 5-325 mg] Hydrocortisone 1% CREAM [Cortaid] 1 appl TP BID 02/03/17 02/03/17 Latanoprost [Xalatan] 1 drop RIGHT EYE HS 02/03/17 02/03/17 Levothyroxine Sodium [Synthroid] 137 mcg PO QAM 02/03/17 02/03/17 Propranolol [Inderal] 10 mg PO BID 02/03/17 02/03/17 Allergies Allergy/AdvReac Type Severity Reaction Status Date / Time venom-honey bee Allergy Severe Anaphylaxis Verified 08/03/15 10:53 [bee venom (honey bee)] felodipine AdvReac LACK OF Verified 08/03/15 10:53 THERAPY gabapentin AdvReac See Verified 09/02/16 17:02 Comments isosorbide AdvReac se Verified 09/02/16 18:52 metformin AdvReac KIDNEY Verified 08/03/15 10:53 DAMAGE metoprolol AdvReac LACK OF Verified 08/03/15 10:53 THERAPY Constitutional: Denies: fever Cardiovascular: Reports: orthopnea. Denies: chest pain Respiratory: Reports: dyspnea Gastrointestinal: Denies: abdominal pain, nausea, vomiting, diarrhea Genitourinary: Denies: urgency, dysuria Integumentary: Denies: rash Neurological: Denies: headache, weakness, numbness Past Medical History - Past Medical History Medical history: Reports: cancer, cirrhosis, diabetes, dialysis, hepatitis, hypertension, liver disease Surgical history: Reports: appendectomy, orthopedic, other Psychiatric history: Reports: no psych history, other - Social History Smoking Status: Former smoker Smokeless Tobacco Status: No Alcohol use: Reports: none Drug use: Reports: none Physical Exam - General Limitations: no limitations General appearance: alert, in no apparent distress Course Vital Signs Temperature 98.2 F 10/15/17 17:23 Pulse Rate 64 10/15/17 17:23 Respiratory Rate 20 10/15/17 17:23 Blood Pressure 189/84 10/15/17 17:23 O2 Sat by Pulse Oximetry 94 10/15/17 17:23 Temperature 98.2 F 10/15/17 17:23 Pulse Rate 64 10/15/17 17:23 Respiratory Rate 20 10/15/17 17:23 Blood Pressure 189/84 10/15/17 17:23 O2 Sat by Pulse Oximetry 96 10/15/17 17:50 Oxygen Delivery Oxygen Delivery Room Air Attestation Statement - Attestation Attestation: I examined this patient and my medical decision-making was reviewed with the Resident Physician. I agree with the documented findings, disposition and treatment plan as described except to the extent set forth below. Patient presents to the ED for dyspnea and orthopnea. Sent in from the outpatient clinic at the [facility]. He is end-stage renal. He had his last dialysis yesterday. He is waking up at night short of breath with sats in the 80s. Patient comfortable on exam. Lungs diminished in the bases. No peripheral edema. Plan. Cardiac workup. Likely admission for diuresis.
[2017-10-15 18:04] LABS: Hemoglobin 11.2 g/dL (12.9-16.9)
[2017-10-15 18:06] LABS: Immature Platelets 3.3 % (1.1-6.1)
[2017-10-15 18:09] LABS: INR 1.2; Prothrombin Time 12.9 Seconds (9.4-12.1)
[2017-10-15 18:12] LABS: Activated Partial Thrombo Time 32.6 Seconds (26.0-36.0)
[2017-10-15 18:25] LABS: Albumin 3.4 g/dL (3.5-5.7); Albumin/Globulin Ratio 1.2 (1.1-2.2); Bilirubin,Direct 0.2 mg/dL (0.0-0.2); Bilirubin,Indirect 0.2 mg/dL (0.0-1.2); Bilirubin,Total 0.4 mg/dL (0.3-1.0); Calcium 9.4 mg/dL (8.6-10.3); Globulin 2.8 g/dL (2.4-3.5); Total Protein 6.2 g/dL (6.4-8.9); Troponin I 0.03 ng/mL (< 0.04)
[2017-10-15 18:29] LABS: Basophils % 0.5 %; Eosinophils # 0.4 K/mcL (0.0-0.6); Eosinophils % 9.7 %; Hematocrit 32.8 % (37.5-50.1); Immature Granulocytes % 0.5 % (0-4); Lymphocytes # 0.8 K/mcL (0.6-4.6); Lymphocytes % 17.7 %; Mean Corpuscular HGB Conc 34.1 g/dL (31.6-35.5); Mean Corpuscular Hemoglobin 33.8 pg (28.0-33.3); Mean Corpuscular Volume 99.1 fL (83.0-100.0); Mean Platelet Volume 10.2 fL (9.4-12.4); Monocytes # 0.3 K/mcL (0.0-1.3); Monocytes % 6.2 %; Neutrophils # 2.9 K/mcL (1.6-8.9); Red Blood Count 3.31 M/mcL (4.19-5.50); Red Cell Distribution Width 14.2 % (11.5-14.5); Segmented Neutrophils % 65.4 %
[2017-10-15 18:30] LABS: Platelet Count 78 K/mcL (140-400)
[2017-10-15] MEDS ORDERED: Dextrose Gel 15 GM/37.5 ML TUBE PO PRN ×2 (21:51)
[2017-10-15] MEDS ORDERED: *HR* Dextrose 50 % in Water (Syg) 50 ML SYRINGE IVP PRN (21:51)
[2017-10-15] MEDS ORDERED: D5% in Water 1,000 ML IVC PRN (21:51)
[2017-10-15] MEDS ORDERED: Naloxone 0.4 MG/ML INJ IVP PRN (21:52)
[2017-10-15] MEDS ORDERED: Acetaminophen 325 MG TABLET PO PRN (21:52)
--- NOTE | 2017-10-15 22:01 | Internal Med History&Physical ---
Date of Encounter: 10/16/17 Time of Encounter: 21:56 Internal Medicine - H&P: HPI Chief complaint: Shortness of breath History of present illness: Mr. Betts is a 77 year old male with past medical history of end-stage renal disease on hemodialysis, chronic A. fib not on anticoagulation, liver cirrhosis, hypertension, diabetes mellitus, obesity who presented to to our ED from the [facility] due to shortness of breath. The patient has noticed over the last week that patient has noticed increased abdominal swelling. He is short of breath with exertion because of that as well. The patient is not the best historian. Upon presentation to our ED he was noted to be satting in the mid 80s put on supplemental oxygen. Laboratory workup was consistent with his end-stage renal disease. Anemia was better than previously. BNP was 489. EKG showed A. fib rate control. The patient's blood pressure was noted to be 159/84 in the ED was up to 200/94. I was asked to admit the patient around 9: 45 PM, although the patient has been here since early in the afternoon in the ED. I did not take to call from the ED for the admission and I do not see a chest x-ray ordered but apparently there was one done at the [facility] per the patient. I also do not see any medications that were given for his blood pressure. Denies fever, chills, headache, nausea, vomiting, chest pain, abdominal pain, urinary symptoms, or neurological symptoms Past Med Surg Social Fam HX - Past Medical History Medical history: cancer, cirrhosis, diabetes, dialysis, hepatitis, hypertension , liver disease Psychiatric history: no psych history, other - Past Surgical History Surgical History: appendectomy, orthopedic, other - Social History Smoking Status: Former smoker Smokeless Tobacco Status: No Alcohol use: none Drug use: none - Family History Mother Living Status: Father Living Status: Internal Medicine - H&P: Meds Insulin ASPART [NovoLOG] 10 unit SQ TIDAC 08/03/15 [History] Insulin Glargine,Hum.rec.anlog [Lantus Solostar] 45 unit SQ ONCE 08/03/15 [ History] Lisinopril [Zestril] 20 mg PO DAILY 08/03/15 [History] Renal Vitamin [Renal Caps Softgel] 1 mg PO DAILY 08/03/15 [History] amLODIPine [Norvasc] 5 mg PO HS 08/03/15 [History] Calcium Acetate [Phos-LO] 2,001 mg PO TIDWM 08/31/15 [History] Terazosin [Hytrin] 10 mg PO HS 08/31/15 [History] Azelastine 0.1% Nasal [place] [Astelin] 2 spray NS BID PRN 09/02/16 [History] Capsaicin [Arthritis Pain Relief] 1 appl TP 5XD PRN 09/02/16 [History] Eucerin Creme 1 appl TP BID 09/02/16 [History] Insulin ASPART [NovoLOG] 5 unit SQ QPM 09/02/16 [History] Latanoprost [Xalatan] 1 drop RIGHT EYE HS 02/03/17 [History] Levothyroxine Sodium [Synthroid] 137 mcg PO QAM 02/03/17 [History] Propranolol [Inderal] 10 mg PO BID 02/03/17 [History] Aspirin [Lo-Dose Aspirin EC] 81 mg PO DAILY 10/15/17 [History] Tramadol HCl [Ultram] 50 mg PO DAILY PRN 10/15/17 [History] 3 Allergy/AdvReac Type Severity Reaction Status Date / Time venom-honey bee Allergy Severe Anaphylaxis Verified 10/15/17 18:12 [bee venom (honey bee)] felodipine AdvReac LACK OF Verified 10/15/17 18:12 THERAPY gabapentin AdvReac See Verified 10/15/17 18:12 Comments isosorbide AdvReac se Verified 10/15/17 18:12 metformin AdvReac KIDNEY Verified 10/15/17 18:12 DAMAGE metoprolol AdvReac LACK OF Verified 10/15/17 18:12 THERAPY All Systems PM: A 10-system review of systems was performed and is negative for pertinent findings except as documented above in the HPI. Review of systems: All systems reviewed are negative except as mentioned above - Constitutional Vitals: Temp Pulse Resp BP Pulse Ox 98.2 F 68 10 200/94 95 10/15/17 17:23 10/15/17 19:30 10/15/17 19:30 10/15/17 19:30 10/15/17 20:09 Exam: GEN: NAD HEENT: AT, NC, No cyanosis, oral mucosa is moist, No JVD Lymphatics: No lymphadenoapthy Eyes: Extrocular muscles intact, anicteric CVS:RRR. S1, S2, No m/r/g RESP: Diminished with bibasilar crackles ABD: Soft, NT, distended +BS, generalized anasarca EXT: 1 + lower extremity edema, No rashes, 2+ DP NEURO: Nonfocal, CN II-XII intact, No focal motor or sensory deficits Psych: Cooperative, Not anxious or depressed Internal Med - H&P Results - Labs CBC & Chem 7: 10/15/17 17:30 10/15/17 17:30 - Assessment and plan (1) Dyspnea Current Visit: No Status: Acute Assessment and plan: Multifactorial with history of end-stage renal disease and liver cirrhosis but likely all from ESRD. We will check a chest x-ray. Patient may just need to be dialyzed. Will give a dose of 40 mg IV lasix 1 time. We will order nebs when necessary. Wean O2 as tolerated. Given his abdominal distention I will check an abdominal ultrasound. Qualifiers: Dyspnea type: dyspnea on exertion Qualified Code(s): R06.09 - Other forms of dyspnea (2) Hypertensive urgency Current Visit: Yes Status: Acute Assessment and plan: Will try to give a dose of IV hydralazine 10 mg and see if that helps. resume home antihypertensives (3) Hypertension Current Visit: No Status: Chronic Assessment and plan: Blood pressure is uncontrolled. We will give the patient 10 g of IV hydralazine for now. Resume home antihypertensives. Qualifiers: Hypertension type: essential hypertension Qualified Code(s): I10 - Essential (primary) hypertension (4) ESRD (end stage renal disease) Current Visit: No Status: Chronic Assessment and plan: We will consult nephrology to resume regular dialysis. (5) Chronic atrial fibrillation Current Visit: No Status: Chronic Assessment and plan: Patient is rate controlled on propranolol. Continue aspirin. No anticoagulation due to to risk of fall. (6) Type 2 diabetes mellitus with complication Current Visit: No Status: Chronic Assessment and plan: We will place the patient on insulin sliding scale. Accu-Cheks. 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 Hemoglobin is actually better than previously. We will monitor. Qualifiers: Anemia type: due to chronic kidney disease Chronic kidney disease stage: on chronic dialysis Qualified Code(s): N18.6 - End stage renal disease; D63.1 - Anemia in chronic kidney disease; Z99.2 - Dependence on renal dialysis (8) DVT prophylaxis Current Visit: No Status: Acute Assessment and plan: Heparin subcutaneous - Time Spent With Patient Total time spent is greater than 50% in coordination of care (as documented) at patient's floor/unit and/or counseling patient:
[2017-10-15] MEDS ORDERED: Ipratropium/Albuterol Neb 3 ML IH PRN (22:03)
[2017-10-15] MEDS: *HR* Heparin 5,000 UNIT/ML VIAL SQ SCH (23:06)
[2017-10-16] MEDS ORDERED: Furosemide 40 MG/4 ML VIAL IVP ONE (04:10)
[2017-10-16 07:19] LABS: Calcium 9.2 mg/dL (8.6-10.3); Magnesium 1.9 mg/dL (1.6-2.6); Potassium 4.1 mEq/L (3.5-5.1)
[2017-10-16] MEDS: *HR* Heparin 5,000 UNIT/ML VIAL SQ SCH ×3 (07:19→23:09)
[2017-10-16 07:57] LABS: Basophils % 0.2 %; Eosinophils % 7.7 %; Hematocrit 33.3 % (37.5-50.1); Hemoglobin 11.3 g/dL (12.9-16.9); Immature Granulocytes % 0.5 % (0-4); Lymphocytes % 16.8 %; Mean Corpuscular HGB Conc 33.9 g/dL (31.6-35.5); Mean Corpuscular Hemoglobin 34.2 pg (28.0-33.3); Mean Corpuscular Volume 100.9 fL (83.0-100.0); Mean Platelet Volume 11.2 fL (9.4-12.4); Monocytes % 6.8 %; Red Cell Distribution Width 14.4 % (11.5-14.5)
[2017-10-16 07:58] LABS: Eosinophils # 0.3 K/mcL (0.0-0.6); Lymphocytes # 0.7 K/mcL (0.6-4.6); Monocytes # 0.3 K/mcL (0.0-1.3)
[2017-10-16 08:01] LABS: Platelet Count 76 K/mcL (140-400)
[2017-10-16] MEDS: Renal Vitamin 1 MG CAPSULE PO SCH (08:16)
[2017-10-16] MEDS: Calcium Acetate 667 MG CAPSULE PO SCH ×3 (08:16→16:51)
[2017-10-16] MEDS: Aspirin Enteric Coated 81 MG Tablet PO SCH (08:17)
[2017-10-16] MEDS: Insulin LISPRO 300 UNITS/3 ML VIAL SQ SCH ×4 (08:42→23:12)
[2017-10-16] MEDS ORDERED: Capsaicin 0.025% 60 GM TUBE TP PRN (12:01)
[2017-10-16] MEDS: Lisinopril 20 MG TABLET PO SCH (12:28)
--- NOTE | 2017-10-16 15:25 | Pulmonology Consult Note ---
<BalajiKalin M - Last Filed: 10/16/17 17:04> Date of Encounter: 10/16/17 Medications and Allergies Insulin ASPART [NovoLOG] 10 unit SQ TIDAC 08/03/15 [History] Insulin Glargine,Hum.rec.anlog [Lantus Solostar] 45 unit SQ ONCE 08/03/15 [ History] Lisinopril [Zestril] 20 mg PO DAILY 08/03/15 [History] Renal Vitamin [Renal Caps Softgel] 1 mg PO DAILY 08/03/15 [History] amLODIPine [Norvasc] 5 mg PO HS 08/03/15 [History] Calcium Acetate [Phos-LO] 2,001 mg PO TIDWM 08/31/15 [History] Terazosin [Hytrin] 10 mg PO HS 08/31/15 [History] Azelastine 0.1% Nasal [place] [Astelin] 2 spray NS BID PRN 09/02/16 [History] Capsaicin [Arthritis Pain Relief] 1 appl TP 5XD PRN 09/02/16 [History] Eucerin Creme 1 appl TP BID 09/02/16 [History] Insulin ASPART [NovoLOG] 5 unit SQ QPM 09/02/16 [History] Latanoprost [Xalatan] 1 drop RIGHT EYE HS 02/03/17 [History] Levothyroxine Sodium [Synthroid] 137 mcg PO QAM 02/03/17 [History] Propranolol [Inderal] 10 mg PO BID 02/03/17 [History] Aspirin [Lo-Dose Aspirin EC] 81 mg PO DAILY 10/15/17 [History] Tramadol HCl [Ultram] 50 mg PO DAILY PRN 10/15/17 [History] 3 Allergy/AdvReac Type Severity Reaction Status Date / Time venom-honey bee Allergy Severe Anaphylaxis Verified 10/15/17 18:12 [bee venom (honey bee)] felodipine AdvReac LACK OF Verified 10/15/17 18:12 THERAPY gabapentin AdvReac See Verified 10/15/17 18:12 Comments isosorbide AdvReac se Verified 10/15/17 18:12 metformin AdvReac KIDNEY Verified 10/15/17 18:12 DAMAGE metoprolol AdvReac LACK OF Verified 10/15/17 18:12 THERAPY All Systems: The remainder of the systems were reviewed and are negative Physical Examination Vital Signs: Vital Signs, Last 4 Hours Temp Pulse Resp BP Pulse Ox 10/16/17 15:17 98.6 F 55 17 146/67 92 Results - Laboratory Findings CBC and BMP: 10/16/17 06:24 10/16/17 06:24 PT/INR, D-dimer PT 12.9 Seconds (9.4-12.1) H 10/15/17 17:30 Abnormal lab findings: Abnormal lab results RBC 3.30 M/mcL (4.19-5.50) L 10/16/17 06:24 Hgb 11.3 g/dL (12.9-16.9) L 10/16/17 06:24 Hct 33.3 % (37.5-50.1) L 10/16/17 06:24 MCV 100.9 fL (83.0-100.0) H 10/16/17 06:24 MCH 34.2 pg (28.0-33.3) H 10/16/17 06:24 Plt Count 76 K/mcL (140-400) L 10/16/17 06:24 PT 12.9 Seconds (9.4-12.1) H 10/15/17 17:30 BUN 34 mg/dL (8-23) H 10/16/17 06:24 Creatinine 4.39 mg/dL (0.70-1.30) H 10/16/17 06:24 Est GFR ( Amer) 16 (> 60) L 10/16/17 06:24 Est GFR (Non-Af Amer) 13 (> 60) L 10/16/17 06:24 Glucose 135 mg/dL (70-105) H 10/16/17 06:24 POC Glucose 152 mg/dL (70-99) H 10/15/17 23:00 B-Natriuretic Peptide 489 pg/mL (Less than 100) H 10/15/17 17:30 Serum Total Protein 6.2 g/dL (6.4-8.9) L 10/15/17 17:30 Albumin 3.4 g/dL (3.5-5.7) L 10/15/17 17:30 - Clinical Findings Intake & Output: Intake & Output 10/16/17 10/16/17 10/16/17 07:59 15:59 23:59 Intake Total 480 / 480 Balance 480 / 480 Consult Discharge Plan - Plan [facility]errals: [facility] [Primary Care Provider] - - Attending Attestation I examined this patient and my medical decision-making was reviewed with the Resident Physician. I agree with the documented findings, disposition and treatment plan as described except to the extent set forth below. Patient seen and examined. Labs, radiology, chart personally reviewed. 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 I suspect this is most likely would be a transudate if pleural effusion and thoracentesis will be indicated for symptomatic relief if continued to have dyspnea after more aggressive fluid removal with hemodialysis. This was discussed with the patient and also discussed with Dr. Atkinson dirt supervisor was planning to do possibly daily dialysis which I would agree with that. Patient also with obesity and his been having significant back problems that is limiting came to be more active. Please call for any questions and if patient continued to have significant shortness of breath after more aggressive fluid removal. Thank you very much for consultation <Adrian Hope - Last Filed: 10/16/17 17:55> Date of Encounter: 10/16/17 Time of Encounter: 15:25 Assessment and Plan (1) Dyspnea Current Visit: Yes Status: Acute - Dyspnea on exertion likely secondary to pleural effusions which is secondary to fluid overload as below - Recommending treating underlying conditions - No acute distress - Tolerating 2 L of oxygen via nasal cannula - Did not recommend thoracentesis at this time Qualifiers: Dyspnea type: dyspnea on exertion Qualified Code(s): R06.09 - Other forms of dyspnea (2) Pleural effusion Current Visit: Yes Status: Acute - Pleural effusion as demonstrated on CT and chest x-ray on 10/16/17 - Likely related to fluid overload secondary to anasarca as below - Patient does get MWF dialysis but did not attend today. Continues to make urine. Nephro has been consulted - Also has a history of cirrhosis likely secondary to hepatitis C - This is likely the cause of patient's dyspnea on exertion, currently tolerating 2 L of oxygen venous cannula - Afebrile, no cough, no leukocytosis - Most recent echocardiogram in August 2016 showed ejection fraction of 65% with indeterminate diastolic dysfunction. This is less likely congestive heart failure in nature Recommendations - The underlying cause of fluid overload - Do not recommend thoracentesis unless patient is still symptomatic despite resolution of anasarca - Does have a remote history of smoking, cannot rule out malignancy however right-sided is compatible with ascites (3) Fluid overload Current Visit: No Status: Acute - Likely secondary to end-stage renal disease and cirrhosis -Management of underlying conditions per primary team Qualifiers: Hypervolemia type: unspecified Qualified Code(s): E87.70 - Fluid overload, unspecified (4) Cirrhosis of liver Current Visit: Yes Status: Chronic - Possibly contributing to fluid overload - Patient denies any history of heavy drinking - States he has a history of hepatitis C which is not treated - Further management per primary team Qualifiers: Hepatic cirrhosis type: unspecified hepatic cirrhosis Ascites presence: without ascites Qualified Code(s): K74.60 - Unspecified cirrhosis of liver (5) Lumbar stenosis without neurogenic claudication Current Visit: No Status: Chronic Management per primary team (6) ESRD (end stage renal disease) on dialysis Current Visit: Yes Status: Chronic - Patient reports MWF hemodialysis - Reports compliance but states he did not receive his treatment today - Further management per nephrology and primary team (7) Obesity (BMI 30-39.9) Current Visit: Yes Status: Chronic (8) History of hepatitis C Current Visit: Yes Status: Chronic (9) (HFpEF) heart failure with preserved ejection fraction Current Visit: No Status: Acute - Did not suspect CHF exacerbation, more likely related to volume overload secondary to ESRD and cirrhosis Further management as above History of Present Illness Consult date: 10/16/17 Requesting physician: Silvano Millard Reason for consult: dyspnea Chief complaint: dyspnea on exertion History of present illness: 77-year-old male with past medical history of ESRD on MWF dialysis, cirrhosis secondary to hepatitis C, HFpEF, CAD, Afib not on A/C with a chief complaint of dyspnea on exertion. He states it has been progressive and sudden onset starting 3 days ago. He has never had these symptoms in the past. Denies any pulmonary history including COPD, asthma, pulmonary fibrosis. States that he is a former smoker quitting 30 years ago. He does state that he had over a "super bug" respiratory infection 3 weeks ago where he was hospitalized for 3 days. Patient states that he has not noticed any lower extremity edema but does have chronic bilateral thigh edema following his dialysis sessions. He has also noticed increased abdominal swelling but attributes this to excess insulin use accumulating in his subcutaneous fat. No exacerbating or relieving factors including orthopnea. States he is unable to walk any distance without becoming SOB. States he does not use a diuretic because lasix "ruined" his kidneys years ago. Denies any symptoms of CP, cough, fevers, chills, nausea, vomiting. CT abdomen in ED shows possible fluid overload, anasarca, large right pleural effusion. CXR shows right pleural effusion. Tolerating 2L NC with O2 saturation in 90s. Past Med Surg Social Fam HX - Past Medical History Medical history: cancer, cirrhosis, diabetes, dialysis, hepatitis, hypertension , liver disease Psychiatric history: no psych history, other - Past Surgical History Surgical History: appendectomy, orthopedic, other - Social History Smoking Status: Former smoker Smokeless Tobacco Status: No Alcohol use: none Drug use: none - Family History Mother History Unknown: Yes Adopted: Yes Living Status: Father History Unknown: Yes Adopted: Yes Living Status: All Systems: The remainder of the systems were reviewed and are negative Review of Systems: - Constitutional: Denies fevers, chills, weight loss, generalized fatigue - CVS: Denies chest pain, palpitations, JAIN, orthopnea, edema, PND, - Pulm: Admits to dyspnea of exertion. Denies cough, sputum, hematemesis, wheezing - GI: Admits to abdominal swelling. Denies abdominal pain, anorexia, nausea, vomiting, diarrhea, constipation, melena - Extremities: Denies LE swelling. States he has bilateral cellulitis. - Back: Admits to back pain and right sided swelling. - Skin: Admits to blisters on LE. Denies rashes, ulcers, color changes - Neuro: Denies MACIAS, paresthesias, focal deficits Physical Examination Vital Signs: Vital Signs, Last 4 Hours Temp Pulse Resp BP Pulse Ox 10/16/17 15:17 98.6 F 55 17 146/67 92 10/16/17 11:54 98.4 F 65 17 178/54 97 Gen.: Vitals noted. No acute distress. AAOx3. Speaking in full sentences. Sitting up at bedside. HEENT: PERRL/EOMI, oropharynx clear, Normocephalic, atraumatic, MMM Cardiac: Irregular rhythm, no murmur, +S1/S2 Pulmonary: Decreased breath sounds on right lower, otherwise CTA bilaterally, no wheezes, rales or rhonchi, equal chest expansion Abdomen: Anasarca to mid abdomen, nontender, BS noted, no guarding, no rebound. Distended, no observable fluid wave. MSK: ROM intact, no joint swelling noted Extremities: 1+ BLE edema, nontender calf, no cyanosis or clubbing Neuro: A&Ox3, moves all extremities, no focal deficits Psych: Appropriate mood and behavior, poor insight. Results - Laboratory Findings CBC and BMP: 10/16/17 06:24 10/16/17 06:24 PT/INR, D-dimer PT 12.9 Seconds (9.4-12.1) H 10/15/17 17:30 Abnormal lab findings: Abnormal lab results RBC 3.30 M/mcL (4.19-5.50) L 10/16/17 06:24 Hgb 11.3 g/dL (12.9-16.9) L 10/16/17 06:24 Hct 33.3 % (37.5-50.1) L 10/16/17 06:24 MCV 100.9 fL (83.0-100.0) H 10/16/17 06:24 MCH 34.2 pg (28.0-33.3) H 10/16/17 06:24 Plt Count 76 K/mcL (140-400) L 10/16/17 06:24 PT 12.9 Seconds (9.4-12.1) H 10/15/17 17:30 BUN 34 mg/dL (8-23) H 10/16/17 06:24 Creatinine 4.39 mg/dL (0.70-1.30) H 10/16/17 06:24 Est GFR ( Amer) 16 (> 60) L 10/16/17 06:24 Est GFR (Non-Af Amer) 13 (> 60) L 10/16/17 06:24 Glucose 135 mg/dL (70-105) H 10/16/17 06:24 B-Natriuretic Peptide 489 pg/mL (Less than 100) H 10/15/17 17:30 Serum Total Protein 6.2 g/dL (6.4-8.9) L 10/15/17 17:30 Albumin 3.4 g/dL (3.5-5.7) L 10/15/17 17:30 - Clinical Findings Intake & Output: Intake & Output 10/15/17 10/16/17 10/16/17 23:59 07:59 15:59 Intake Total 480 / 480 Balance 480 / 480
--- NOTE | 2017-10-16 15:56 | Nephrology Consult Note ---
Date of Encounter: 10/17/17 Time of Encounter: 15:53 Assessment and Plan (1) ESRD (end stage renal disease) on dialysis Current Visit: Yes Status: Chronic HD MWF. Renal vitamins. Renal dose medications. Renal diet. Additional dialysis and ultrafiltration as needed. Plan for UF today for volume removal and plan for dialysis on Thursday. (2) Dyspnea Current Visit: Yes Status: Acute Patient with dyspnea that is likely the result of volume overload state. He has a pleural effusion but there are no plans to perform paracentesis. Will perform daily dialysis/UF to maxamize fluid removal. Qualifiers: Dyspnea type: dyspnea on exertion Qualified Code(s): R06.09 - Other forms of dyspnea (3) Obesity (BMI 30-39.9) Current Visit: Yes Status: Chronic Patient with morbid obesity. (4) Type 2 diabetes mellitus with complication Current Visit: No Status: Chronic Per primary team. 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 Betts is a 77 yo man on dialysis MWF Past Med Surg Social Fam HX - Past Medical History Medical history: cancer, cirrhosis, diabetes, dialysis, hepatitis, hypertension , liver disease Psychiatric history: no psych history, other - Past Surgical History Surgical History: appendectomy, orthopedic, other - Social History Smoking Status: Former smoker Smokeless Tobacco Status: No Alcohol use: none Drug use: none - Family History Mother History Unknown: Yes Adopted: Yes Living Status: Father History Unknown: Yes Adopted: Yes Living Status: Medications and Allergies Insulin ASPART [NovoLOG] 10 unit SQ TIDAC 08/03/15 [History] Insulin Glargine,Hum.rec.anlog [Lantus Solostar] 45 unit SQ ONCE 08/03/15 [ History] Lisinopril [Zestril] 20 mg PO DAILY 08/03/15 [History] Renal Vitamin [Renal Caps Softgel] 1 mg PO DAILY 08/03/15 [History] amLODIPine [Norvasc] 5 mg PO HS 08/03/15 [History] Calcium Acetate [Phos-LO] 2,001 mg PO TIDWM 08/31/15 [History] Terazosin [Hytrin] 10 mg PO HS 08/31/15 [History] Azelastine 0.1% Nasal [place] [Astelin] 2 spray NS BID PRN 09/02/16 [History] Capsaicin [Arthritis Pain Relief] 1 appl TP 5XD PRN 09/02/16 [History] Eucerin Creme 1 appl TP BID 09/02/16 [History] Insulin ASPART [NovoLOG] 5 unit SQ QPM 09/02/16 [History] Latanoprost [Xalatan] 1 drop RIGHT EYE HS 02/03/17 [History] Levothyroxine Sodium [Synthroid] 137 mcg PO QAM 02/03/17 [History] Propranolol [Inderal] 10 mg PO BID 02/03/17 [History] Aspirin [Lo-Dose Aspirin EC] 81 mg PO DAILY 10/15/17 [History] Tramadol HCl [Ultram] 50 mg PO DAILY PRN 10/15/17 [History] 3 Allergy/AdvReac Type Severity Reaction Status Date / Time venom-honey bee Allergy Severe Anaphylaxis Verified 10/15/17 18:12 [bee venom (honey bee)] felodipine AdvReac LACK OF Verified 10/15/17 18:12 THERAPY gabapentin AdvReac See Verified 10/15/17 18:12 Comments isosorbide AdvReac se Verified 10/15/17 18:12 metformin AdvReac KIDNEY Verified 10/15/17 18:12 DAMAGE metoprolol AdvReac LACK OF Verified 10/15/17 18:12 THERAPY Review of Systems All Systems: reviewed and no additional remarkable complaints except as stated ( as per hpi) Exam - Vital Signs Vital signs: Initial Vital Signs Temp Pulse Resp BP Pulse Ox 98.2 F 64 20 189/84 94 10/15/17 17:23 10/15/17 17:23 10/15/17 17:23 10/15/17 17:23 10/15/17 17:23 Vital Signs - Last 8 Hours Temp Pulse Resp BP Pulse Ox 10/16/17 15:17 98.6 F 55 17 146/67 92 10/16/17 11:54 98.4 F 65 17 178/54 97 Intake and Output 10/15/17 10/16/17 10/16/17 23:59 07:59 15:59 Intake Total 480 / 480 Balance 480 / 480 Intake: Oral 480 / 480 Other: Meal Lunch Percent of Meal Consumed 75% Stool Size Smear Stool Consistency formed Stool Characteristics Normal for Patient Stool Color Brown # Voids 2 # Bowel Movements 1 Blood Glucose* 152 128 180 - General Appearance General appearance: well-developed, well-nourished, obese EENT: ATNC Neck: supple Respiratory: course breath sounds Cardiology: edema, regular rate - Dialysis Access Dialysis Vascular Access: Arteriovenous Fistula Gastrointestinal: obese Integumentary: warm and dry Neurologic: alert and oriented x3 Musculoskeletal: no cyanosis Psychiatric: mood/affect appropriate Results - Lab Results 10/16/17 06:24 10/16/17 06:24 Most recent lab results Calcium 9.2 mg/dL (8.6-10.3) 10/16/17 06:24 Magnesium 1.9 mg/dL (1.6-2.6) 10/16/17 06:24 Consult Discharge Plan - Plan [facility]errals: [facility] [Primary Care Provider] -
[2017-10-16] MEDS ORDERED: 0.9 % Sodium Chloride 250 ML IVC PRN (16:00)
[2017-10-16] MEDS ORDERED: 0.9 % Sodium Chloride 1,000 ML PRIME SCH (16:00)
[2017-10-16] MEDS ORDERED: Albumin 25% 25gram/100mL 25 GM/100 ML IV.SOLN IVPB ONE (17:31)
[2017-10-16 17:37] LABS: Hepatitis B Surface Antibody 0.24 mIU/mL; Hepatitis B Surface Antigen Nonreactive (Nonreactive)
--- NOTE | 2017-10-16 18:27 | Internal Med Progress Note ---
Date of Encounter: 10/16/17 Time of Encounter: 11:00 - Assessment and plan (1) Dyspnea Current Visit: Yes Status: Acute Assessment and plan: Patient shortness of breath secondary to volume overload Suspect volume overload secondary to need for hemodialysis due to end-stage renal disease. Qualifiers: Dyspnea type: dyspnea on exertion Qualified Code(s): R06.09 - Other forms of dyspnea (2) Fluid overload Current Visit: No Status: Acute Assessment and plan: Suspect secondary to end-stage renal disease and need for hemodialysis; management as below Qualifiers: Hypervolemia type: unspecified Qualified Code(s): E87.70 - Fluid overload, unspecified (3) ESRD (end stage renal disease) on dialysis Current Visit: Yes Status: Chronic Assessment and plan: Nephrology consulted with recommendations for hemodialysis. Nephrology following an appreciate any further recommendations. (4) Pleural effusion Current Visit: Yes Status: Acute Assessment and plan: Pulmonology consulted and suspects pleural effusions secondary to volume overload Dialysis as above (5) Cirrhosis of liver Current Visit: Yes Status: Chronic Assessment and plan: Discussed with GI Will consider albumin transfusion if no improvement with hemodialysis Will hold off on spironolactone and furosemide Qualifiers: Hepatic cirrhosis type: unspecified hepatic cirrhosis Ascites presence: without ascites Qualified Code(s): K74.60 - Unspecified cirrhosis of liver (6) History of hepatitis C Current Visit: Yes Status: Chronic Assessment and plan: Patient reports a prior history of hepatitis C (7) Lumbar stenosis without neurogenic claudication Current Visit: No Status: Chronic Assessment and plan: Managed as an outpatient - Time Spent With Patient Total time spent is greater than 50% in coordination of care (as documented) at patient's floor/unit and/or counseling patient: - Subjective Interval history: Patient reports of distended abdomen and generalized swelling - Constitutional Vitals: Temp Pulse Resp BP Pulse Ox 98.6 F 55 17 146/67 92 10/16/17 15:17 10/16/17 15:17 10/16/17 15:17 10/16/17 15:17 10/16/17 15:17 General appearance: Present: no acute distress - Respiratory Respiratory exam: Present: CTAB. Absent: accessory muscle use, rales, rhonchi, wheezes - Cardiovascular Cardiovascular exam: Present: RRR, +S1, +S2. Absent: diastolic murmur, gallop, rubs, systolic murmur - GI/Abdominal GI/Abdominal exam: Present: distended, soft. Absent: tenderness - Expanded Lower Extremities Exam Lower Leg exam: Present: swelling Internal Medicine: Result - Labs CBC & Chem 7: 10/16/17 06:24 10/16/17 06:24 Labs: Short CBC 10/16/17 Range/Units 06:24 WBC 4.4 (4.3-11.1) K/mcL Hgb 11.3 L (12.9-16.9) g/dL Hct 33.3 L (37.5-50.1) % Plt Count 76 L (140-400) K/mcL Neutrophils # 3.0 (1.6-8.9) K/mcL BMP 10/16/17 06:24 Sodium 140 Potassium 4.1 Chloride 105 Carbon Dioxide 28 BUN 34 H Creatinine 4.39 H Glucose 135 H Calcium 9.2 - ABG Interpretation ABG results: PT/INR, D-dimer PT 12.9 Seconds (9.4-12.1) H 10/15/17 17:30 - Impressions Impressions Abdomen/Pelvis CT 10/16/17 09:41 IMPRESSION: Features of volume overload, including trace abdominal ascites with mesenteric edema, soft tissue anasarca, large right and small left pleural effusions and small pericardial effusion. Fat stranding and (increased) lymphadenopathy along the mal hepatis and gallbladder fossa is similar to prior exams, and favored to relate to volume status and underlying hepatocellular disease. If there is concern for acute cholecystitis, recommend correlation with cholestatic parameters with consideration for gallbladder ultrasound or nuclear medicine HIDA scan. Cirrhotic liver morphology with features of portal venous hypertension, including splenomegaly, unchanged. Sigmoid colonic diverticulosis without convincing evidence of diverticulitis. Resolution of previously seen left hydronephrosis. Diffusely thick-walled urinary bladder is likely due to underdistention and/ or chronic outlet obstruction. If there is concern for cystitis, correlate with urinalysis. Prostatomegaly. D/ / Reinier Polo / Reinier Polo Interpreting Provider: Reinier Polo Consult Discharge Plan - Plan [facility]errals: [facility] [Primary Care Provider] -
[2017-10-16] MEDS: amLODIPine 5 MG TABLET PO SCH (23:10)
[2017-10-16] MEDS: Latanoprost 2.5 ML BOTTLE RIGHT EYE SCH (23:14)
[2017-10-16] MEDS: traMADol 50 MG TABLET PO PRN (23:21)
[2017-10-17] MEDS ORDERED: Albumin 25% 25gram/100mL 25 GM/100 ML IV.SOLN IVPB ONE (00:50)
[2017-10-17] MEDS: *HR* Heparin 5,000 UNIT/ML VIAL SQ SCH ×3 (06:22→22:06)
--- NOTE | 2017-10-17 08:15 | Electrocardiograph Report ---
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
[2017-10-17] MEDS: Insulin LISPRO 300 UNITS/3 ML VIAL SQ SCH ×3 (08:29→22:22)
[2017-10-17] MEDS: Lisinopril 20 MG TABLET PO SCH (08:34)
[2017-10-17] MEDS: Renal Vitamin 1 MG CAPSULE PO SCH (08:34)
[2017-10-17] MEDS: Aspirin Enteric Coated 81 MG Tablet PO SCH (08:34)
[2017-10-17] MEDS: Calcium Acetate 667 MG CAPSULE PO SCH ×3 (08:34→16:34)
[2017-10-17] MEDS ORDERED: 0.9 % Sodium Chloride 2,000 ML ONE (09:26)
[2017-10-17] MEDS ORDERED: 0.9 % Sodium Chloride 250 ML IVC PRN (09:46)
[2017-10-17] MEDS ORDERED: 0.9 % Sodium Chloride 1,000 ML PRIME SCH (10:00)
[2017-10-17 10:34] LABS: Basophils % 0.4 %; Hemoglobin 10.6 g/dL (12.9-16.9); Mean Platelet Volume 11.3 fL (9.4-12.4); Red Cell Distribution Width 14.1 % (11.5-14.5)
[2017-10-17 10:36] LABS: Eosinophils # 0.4 K/mcL (0.0-0.6); Eosinophils % 7.6 %; Hematocrit 30.9 % (37.5-50.1); Immature Granulocytes % 0.4 % (0-4); Immature Platelets 4.8 % (1.1-6.1); Lymphocytes % 17.2 %; Mean Corpuscular HGB Conc 34.3 g/dL (31.6-35.5); Mean Corpuscular Hemoglobin 34.6 pg (28.0-33.3); Monocytes # 0.4 K/mcL (0.0-1.3); Monocytes % 6.7 %; Neutrophils # 3.7 K/mcL (1.6-8.9); Red Blood Count 3.06 M/mcL (4.19-5.50); Segmented Neutrophils % 67.7 %
[2017-10-17 10:38] LABS: Platelet Count 56 K/mcL (140-400)
[2017-10-17 10:51] LABS: Calcium 9.6 mg/dL (8.6-10.3)
--- NOTE | 2017-10-17 11:49 | Nephrology Progress Note ---
Date of Encounter: 10/17/17 Time of Encounter: 11:17 - Assessment and Plan (1) ESRD (end stage renal disease) on dialysis Current Visit: Yes Status: Chronic HD MWF. Renal vitamins. Renal dose medications. Renal diet. Additional dialysis and ultrafiltration as needed. Plan for dialysis today. (2) Dyspnea Current Visit: Yes Status: Acute Plan for daily dialysis/ultrafiltration for fluid removal. 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 He tolerated the ultrafiltration without any problems. Objective - Vital Signs Vital signs: Vital Signs Temp Pulse Resp BP Pulse Ox 10/17/17 11:09 97.7 F 54 16 108/41 94 10/17/17 07:44 98.1 F 56 16 148/49 95 10/17/17 04:07 98.2 F 64 15 130/54 95 10/16/17 23:11 98.7 F 69 15 181/67 95 10/16/17 21:41 97.5 F L 18 139/61 10/16/17 21:15 134/55 10/16/17 21:00 116/64 10/16/17 20:45 134/59 10/16/17 20:30 139/79 10/16/17 20:15 143/70 10/16/17 20:00 136/74 10/16/17 19:45 141/57 10/16/17 19:30 143/62 10/16/17 19:15 97.3 F L 20 158/65 10/16/17 18:52 97.9 F 61 18 182/63 95 10/16/17 15:17 98.6 F 55 17 146/67 92 10/16/17 11:54 98.4 F 65 17 178/54 97 Intake and Output 05/25/18 05/26/18 05/26/18 23:59 07:59 15:59 Intake Total 700 / 700 200 / 200 Output Total 3950 / 3950 500 / 500 Balance -3250 / -3250 -300 / -300 Intake: Oral 100 / 100 200 / 200 Intake, Rinseback and Flushes 600 / 600 Output: Urine 350 / 350 500 / 500 Total Dialysis (HD) Output 3600 / 3600 Other: Stool Size Moderate Stool Consistency formed Stool Characteristics Normal for Patient # Voids 2 # Bowel Movements 1 Weight 112.309 kg Blood Glucose* 185 133 226 Hemodialysis Net Fluid Removed 3000 (mL) Patient Weight 10/17/17 23:59 Weight 112.309 kg - General Appearance General appearance: Present: well-developed, well-nourished, obese EENT: Present: ATNC Neck: Present: supple Cardiology: Present: edema, regular rate Dialysis Vascular Access: Arteriovenous Fistula Integumentary: Present: warm and dry Neurologic: Present: alert and oriented x3 Psychiatric: Present: mood/affect appropriate - Lab 10/17/17 10:08 10/17/17 10:08 Most recent lab results Calcium 9.6 mg/dL (8.6-10.3) 10/17/17 10:08 Magnesium 1.9 mg/dL (1.6-2.6) 10/16/17 06:24 Consult Discharge Plan - Plan Referrals: [facility] [Primary Care Provider] -
--- NOTE | 2017-10-17 16:55 | Internal Med Progress Note ---
Date of Encounter: 10/17/17 Time of Encounter: 11:00 - Assessment and plan (1) ESRD (end stage renal disease) on dialysis Current Visit: Yes Status: Chronic Assessment and plan: Nephrology consulted with recommendations for hemodialysis on 10/17/17 Appreciate any further recommendations. (2) Dyspnea Current Visit: Yes Status: Resolved Assessment and plan: Patient no longer short of breath after volume overload has been decreased with ultrafiltration per nephrology recommendations Qualifiers: Dyspnea type: dyspnea on exertion Qualified Code(s): R06.09 - Other forms of dyspnea (3) Fluid overload Current Visit: No Status: Acute Assessment and plan: Suspect secondary to end-stage renal disease and need for hemodialysis; management as below Qualifiers: Hypervolemia type: unspecified Qualified Code(s): E87.70 - Fluid overload, unspecified (4) Pleural effusion Current Visit: Yes Status: Acute Assessment and plan: Pulmonology consulted and suspects pleural effusions secondary to volume overload Dialysis as above (5) Cirrhosis of liver Current Visit: Yes Status: Chronic Assessment and plan: Discussed with GI Will consider albumin transfusion if no improvement with hemodialysis Will hold off on spironolactone and furosemide Qualifiers: Hepatic cirrhosis type: unspecified hepatic cirrhosis Ascites presence: without ascites Qualified Code(s): K74.60 - Unspecified cirrhosis of liver (6) History of hepatitis C Current Visit: Yes Status: Chronic Assessment and plan: Patient reports a prior history of hepatitis C (7) Lumbar stenosis without neurogenic claudication Current Visit: No Status: Chronic Assessment and plan: Managed as an outpatient - Time Spent With Patient Total time spent is greater than 50% in coordination of care (as documented) at patient's floor/unit and/or counseling patient: - Subjective Interval history: Patient reports that abdominal distention and lower extremity edema has improved since ultrafiltration on 10/16/17 - Constitutional Vitals: Temp Pulse Resp BP Pulse Ox 98.2 F 101 18 153/55 93 10/17/17 15:56 10/17/17 15:56 10/17/17 15:56 10/17/17 15:56 10/17/17 15:56 General appearance: Present: no acute distress - Respiratory Respiratory exam: Present: CTAB. Absent: accessory muscle use, rales, rhonchi, wheezes - Cardiovascular Cardiovascular exam: Present: RRR, +S1, +S2. Absent: diastolic murmur, gallop, rubs, systolic murmur - GI/Abdominal GI/Abdominal exam: Present: distended (Decreased abdominal distention per patient) Internal Medicine: Result - Labs CBC & Chem 7: 10/17/17 10:08 10/17/17 10:08 Labs: Short CBC 10/17/17 Range/Units 10:08 WBC 5.5 (4.3-11.1) K/mcL Hgb 10.6 L (12.9-16.9) g/dL Hct 30.9 L (37.5-50.1) % Plt Count 56 L (140-400) K/mcL Neutrophils # 3.7 (1.6-8.9) K/mcL BMP 10/17/17 10:08 Sodium 135 L Potassium 5.0 Chloride 101 Carbon Dioxide 28 BUN 48 H Creatinine 5.85 H Glucose 220 H Calcium 9.6 - ABG Interpretation ABG results: PT/INR, D-dimer PT 12.9 Seconds (9.4-12.1) H 10/15/17 17:30 - Impressions Impressions Echocardiogram 10/17/17 09:43 Impressions: LVEF 60%. Indeterminate diastolic function. Mildly dilated RV with low normal function. Bi-atrial enlargement. Mild mitral regurgitation. Mild-moderate tricuspid regurgitation. Mild pulmonic regurgitation. Moderate pulmonary hypertension. Left Ventricular Wall Motion: Rest Echo Findings All wall segments showed normal motion. Findings: Study Quality * Technically adequate exam. ECG Findings * Atrial fibrillation. Left Ventricle * LVEF 60%. * Normal LV chamber size, wall thickness and function. * Indeterminate diastolic function. Right Ventricle * Mildly dilated RV with low normal function. Left Atrium * Severely dilated left atrium. Right Atrium * Moderately dilated right atrium. Mitral Valve * Mild-moderate mitral annular calcification * Normal mitral valve structure. * No mitral stenosis. * Mild mitral regurgitation. Aortic Valve * No aortic regurgitation. * Aortic valve not well visualized. * No aortic stenosis. Tricuspid Valve * Normal tricuspid valve structure. * Mild-moderate tricuspid regurgitation. * Estimated RA pressure is 8 mmHg. * Estimated RVSP is 58 mmHg. * Moderate pulmonary hypertension. Pulmonic Valve * Pulmonic valve is not well visualized. * No pulmonic stenosis. * Mild pulmonic regurgitation. Pulmonary Artery * Pulmonary artery not well visualized. Aorta * Normally sized aortic root. Pericardium * There is no pericardial effusion present. Interatrial Septum * No evidence of PFO by color Doppler. IVC * > 50% respiratory change * The IVC is dilated. Consult Discharge Plan - Plan Referrals: [facility] [Primary Care Provider] -
[2017-10-17] MEDS: Latanoprost 2.5 ML BOTTLE RIGHT EYE SCH (22:07)
[2017-10-17] MEDS: traMADol 50 MG TABLET PO PRN (22:07)
[2017-10-17] MEDS: amLODIPine 5 MG TABLET PO SCH (22:08)
[2017-10-17] MEDS: Amoxicillin 250 MG CHEWABLE TABLET PO SCH (23:43)
[2017-10-18] MEDS: *HR* Heparin 5,000 UNIT/ML VIAL SQ SCH (06:04)
[2017-10-18] MEDS: Renal Vitamin 1 MG CAPSULE PO SCH (08:22)
[2017-10-18] MEDS: Calcium Acetate 667 MG CAPSULE PO SCH ×2 (08:22→12:22)
[2017-10-18] MEDS: Lisinopril 20 MG TABLET PO SCH (08:22)
[2017-10-18] MEDS: Aspirin Enteric Coated 81 MG Tablet PO SCH (08:22)
[2017-10-18] MEDS: Amoxicillin 250 MG CHEWABLE TABLET PO SCH (08:24)
[2017-10-18] MEDS: Insulin LISPRO 300 UNITS/3 ML VIAL SQ SCH ×2 (08:26→12:22)
--- NOTE | 2017-10-18 10:33 | Nephrology Progress Note ---
Date of Encounter: 10/18/17 Time of Encounter: 10:33 - Assessment and Plan (1) ESRD (end stage renal disease) on dialysis Current Visit: Yes Status: Chronic HD MWF. Renal vitamins. Renal dose medications. Renal diet. Additional dialysis and ultrafiltration as needed. . (2) Dyspnea Current Visit: Yes Status: Resolved Plan for daily dialysis/ultrafiltration for fluid removal. He has improved. 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 He still complains of chronic back pain. He reports that he thinks his breathing is better. He wants to be discharged today. Objective - Vital Signs Vital signs: Vital Signs Temp Pulse Resp BP Pulse Ox 10/18/17 07:25 98.2 F 55 18 144/58 97 10/18/17 04:29 98.3 F 59 17 125/64 92 10/18/17 00:44 98.9 F 59 17 135/59 97 10/17/17 19:26 98.5 F 62 17 144/63 91 10/17/17 15:56 98.2 F 101 18 153/55 93 10/17/17 15:45 97.2 F L 20 162/68 10/17/17 15:15 139/52 10/17/17 15:00 143/69 10/17/17 14:45 138/67 10/17/17 14:30 124/58 10/17/17 14:15 135/44 10/17/17 14:00 138/46 10/17/17 13:45 138/49 10/17/17 13:30 130/45 10/17/17 13:15 130/64 10/17/17 13:00 129/36 10/17/17 12:45 132/46 10/17/17 12:30 130/50 10/17/17 12:15 126/48 10/17/17 12:00 146/50 10/17/17 11:45 97.4 F L 18 136/48 10/17/17 11:09 97.7 F 54 16 108/41 94 Intake and Output 10/17/17 10/18/17 10/18/17 23:59 07:59 15:59 Intake Total 500 / 500 120 / 120 Output Total 100 / 100 Balance 400 / 400 120 / 120 Intake: Oral 500 / 500 120 / 120 Output: Urine 100 / 100 Other: Percent of Meal Consumed 100% # Voids 0 # Bowel Movements 0 Weight 107.1 kg Blood Glucose* 229 165 Patient Weight 10/18/17 23:59 Weight 107.1 kg - General Appearance General appearance: Present: well-developed, well-nourished, obese EENT: Present: ATNC Neck: Present: supple Respiratory: Present: clear Cardiology: Present: edema Additional Comments: bradycardic Gastrointestinal: Present: obese Integumentary: Present: warm and dry Neurologic: Present: alert and oriented x3 Psychiatric: Present: mood/affect appropriate - Lab 10/18/17 10:17 10/18/17 10:17 Most recent lab results Calcium 9.6 mg/dL (8.6-10.3) 10/17/17 10:08 Magnesium 1.9 mg/dL (1.6-2.6) 10/16/17 06:24 Consult Discharge Plan - Plan Referrals: [facility] [Primary Care Provider] -
[2017-10-18 12:04] LABS: Basophils % 0.7 %; Eosinophils # 0.3 K/mcL (0.0-0.6); Eosinophils % 6.7 %; Hematocrit 30.2 % (37.5-50.1); Hemoglobin 10.3 g/dL (12.9-16.9); Immature Granulocytes % 0.2 % (0-4); Lymphocytes # 0.8 K/mcL (0.6-4.6); Lymphocytes % 19.3 %; Mean Corpuscular HGB Conc 34.1 g/dL (31.6-35.5); Mean Corpuscular Hemoglobin 34.2 pg (28.0-33.3); Mean Corpuscular Volume 100.3 fL (83.0-100.0); Mean Platelet Volume 13.1 fL (9.4-12.4); Monocytes # 0.3 K/mcL (0.0-1.3); Monocytes % 6.5 %; Neutrophils # 2.9 K/mcL (1.6-8.9); Red Blood Count 3.01 M/mcL (4.19-5.50); Red Cell Distribution Width 13.9 % (11.5-14.5); Segmented Neutrophils % 66.6 %
[2017-10-18 12:06] VITALS: BP 145/76
[2017-10-18 12:07] LABS: Platelet Count 41 K/mcL (140-400)
--- NOTE | 2017-10-18 13:19 | Discharge Summary ---
- NOTES TO OUTPATIENT PROVIDER Notes to Outpatient Provider: Patient to follow-up with scheduled hemodialysis on Thursday and Thursday Date of Encounter: 10/18/17 Time of Encounter: 11:00 - Discharge Diagnosis (1) ESRD (end stage renal disease) on dialysis Priority: Primary Status: Chronic (2) Dyspnea Priority: Primary Status: Resolved Qualifiers: Dyspnea type: dyspnea on exertion Qualified Code(s): R06.09 - Other forms of dyspnea (3) Fluid overload Priority: Primary Status: Acute Qualifiers: Hypervolemia type: unspecified Qualified Code(s): E87.70 - Fluid overload, unspecified (4) Pleural effusion Priority: Primary Status: Acute (5) Cirrhosis of liver Priority: Secondary Status: Chronic Qualifiers: Hepatic cirrhosis type: unspecified hepatic cirrhosis Ascites presence: without ascites Qualified Code(s): K74.60 - Unspecified cirrhosis of liver (6) History of hepatitis C Priority: Secondary Status: Chronic (7) Lumbar stenosis without neurogenic claudication Priority: Secondary Status: Chronic Hospital course: Patient is a 77-year-old male with past medical history significant for end- stage renal disease on hemodialysis, chronic A. fib not on anticoagulation, liver cirrhosis, hypertension, diabetes mellitus, obesity who presented to the ER from [facility] on 10/15/17 due to shortness of breath. He reported of noticing increased abdominal girth over the last week. In addition he also reported of shortness of breath as well. In the ER, patient was found to be hypoxic with O2 saturations in the mid-80s. Laboratory workup was consistent with his end-stage renal disease. Anemia was better than previously. BNP was 489. EKG showed A. fib rate control. Patient was admitted to the medical surgical floor for management of volume overload. During patients hospital stay, nephrology was consulted with recommendations for ultrafiltration in addition to dialysis. Patient reports that abdominal girth has decreased in size and that he is no longer short of breath. Recommendations per nephrology for an additional day of hemodialysis but patient persistent about being discharged home. Patient will be discharged to follow-up with scheduled hemodialysis on 10/19/17. Time spent discussing smoking cessation with patient: 3 to 10 minutes - Time Spent with Patient Total time spent providing and/or coordinating discharge services: - Discharge Medications Home Medications: Insulin ASPART [NovoLOG] 10 unit SQ TIDAC 03/11/16 [History] Insulin Glargine,Hum.rec.anlog [Lantus Solostar] 45 unit SQ ONCE 08/03/15 [ History] Lisinopril [Zestril] 20 mg PO DAILY 08/03/15 [History] Renal Vitamin [Renal Caps Softgel] 1 mg PO DAILY 08/03/15 [History] amLODIPine [Norvasc] 5 mg PO HS 08/03/15 [History] Calcium Acetate [Phos-LO] 2,001 mg PO TIDWM 08/31/15 [History] Terazosin [Hytrin] 10 mg PO HS 08/31/15 [History] Azelastine 0.1% Nasal [place] [Astelin] 2 spray NS BID PRN 09/02/16 [History] Capsaicin [Arthritis Pain Relief] 1 appl TP 5XD PRN 09/02/16 [History] Eucerin Creme 1 appl TP BID 09/02/16 [History] Insulin ASPART [NovoLOG] 5 unit SQ QPM 09/02/16 [History] Latanoprost [Xalatan] 1 drop RIGHT EYE HS 02/03/17 [History] Levothyroxine Sodium [Synthroid] 137 mcg PO QAM 02/03/17 [History] Propranolol [Inderal] 10 mg PO BID 02/03/17 [History] Aspirin [Lo-Dose Aspirin EC] 81 mg PO DAILY 10/15/17 [History] Tramadol HCl [Ultram] 50 mg PO DAILY PRN 10/15/17 [History] Allergies/Adverse Reactions: 3 Allergy/AdvReac Type Severity Reaction Status Date / Time venom-honey bee Allergy Severe Anaphylaxis Verified 10/15/17 18:12 [bee venom (honey bee)] felodipine AdvReac LACK OF Verified 10/15/17 18:12 THERAPY gabapentin AdvReac See Verified 10/15/17 18:12 Comments isosorbide AdvReac se Verified 10/15/17 18:12 metformin AdvReac KIDNEY Verified 10/15/17 18:12 DAMAGE metoprolol AdvReac LACK OF Verified 10/15/17 18:12 THERAPY Date of admission: 10/15/17 21:51 Primary care physician: [facility] Consults: 10/15/17 21:54 Consult to Nephrology [CONS] Routine Consulting Provider: [facility]/ORIMI/KERRIE/BUCK Reason for Consult: ESRD Call Completed: No 10/16/17 15:34 Consult to Pulmonology [CONS] Routine Consulting Provider: [facility] Reason for Consult: Large right pulmonary effusion Call Completed: Yes 10/16/17 16:00 Consult to Dialysis [CONS] ONCE 10/17/17 10:00 Consult to Dialysis [CONS] ONCE 10/17/17 16:00 Consult to Dialysis [CONS] ONCE - Constitutional Vitals: Temp Pulse Resp BP Pulse Ox 98.2 F 55 18 145/76 97 10/18/17 07:25 10/18/17 07:25 10/18/17 07:25 10/18/17 12:05 10/18/17 07:25 General appearance: Present: no acute distress - Respiratory Respiratory exam: Present: CTAB. Absent: accessory muscle use, rales, rhonchi, wheezes - Cardiovascular Cardiovascular exam: Present: RRR, +S1, +S2. Absent: diastolic murmur, gallop, rubs, systolic murmur - Patient Status Disposition: Home, Self-Care Condition: Good - Discharge Instructions Instructions: Diabetes Mellitus Type 2 in Adults (DC), End-Stage Kidney Disease (DC), Edema (DC) Follow Up With: [facility] [Primary Care Provider] - (Please call on Thursday and schedule a hospital follow up for 5-7 days. Thank you!)
== END 2017-10-18 14:55 | disposition home or self-care (01) | DRG 291 ==
LOC: EMEROO 17:19 → 2ANU 17:19 → SUATTDRO 21:51
PROVIDERS: ADMIT Internal Medicine Nephrology; ATTEND Hospitalist

== ENCOUNTER 2017-11-03 14:05 | Inpatient (IN) ==
--- NOTE | 2017-11-03 14:32 | Emergency Department Note ---
Disposition Clinical Impression: ESRD (end stage renal disease) on dialysis, Shortness of breath, CHF exacerbation Disposition: Admitted As Inpatient Condition: Good Time of Disposition: 16:09 SOB HPI - General Chief Complaint: ED Shortness of Breath/Dyspnea Stated Complaint: gee Time Seen by Provider: 11/03/17 14:08 Source: patient, EMS Mode of arrival: ambulatory Limitations: no limitations Nursing Notes Reviewed: Yes Vital Signs Reviewed: Yes - History of Present Illness 77yo male with a past medical history CHF, a fib, end-stage renal dialysis, cirrhosis, diabetes, COPD who presented to [facility] ED complaining of increased shortness of breath for about one week. He has dialysis on MWF and he skipped dialysis yesterday due to a birthday green party. He denies any change in dietary or fluid intake. He believes that he gets more fluid taken off of him when he is at our dialysis laying down as opposed to is normal dialysis where he is in a chair. His vb developer is Dr. Noriega in [place]. He is still able to urinate. Additionally, he has some new blurry vision which he believes may be in relation to his macular degeneration. He also reports chronic back pain so he is unable to ambulate very long until he has to sit down. He denies fever, chills, cough, chest pain, palpitations, trauma, abdominal pain, nausea, dysuria , change in urinary frequency, melena. He wears 2 L oxygen as needed at home. He was at the [facility] today and they transferred him here since they do not have dialysis. Of note, he was just admitted here for fluid overloaded and shortness of breath on 10/18/2017 where he required dialysis. - Related Data Home Medications Medication Instructions Recorded Confirmed Insulin ASPART [NovoLOG] 10 unit SQ TIDAC 08/03/15 11/03/17 Insulin Glargine,Hum.rec.anlog 45 unit SQ ONCE 08/03/15 11/03/17 [Lantus Solostar] Lisinopril [Zestril] 20 mg PO DAILY 08/03/15 11/03/17 Renal Vitamin [Renal Caps Softgel] 1 mg PO DAILY 08/03/15 11/03/17 amLODIPine [Norvasc] 5 mg PO HS 08/03/15 11/03/17 Calcium Acetate [Phos-LO] 2,001 mg PO TIDWM 08/31/15 11/03/17 Terazosin [Hytrin] 10 mg PO HS 08/31/15 11/03/17 Azelastine 0.1% Nasal [place] 2 spray NS BID PRN 09/02/16 11/03/17 [Astelin] Capsaicin [Arthritis Pain Relief] 1 appl TP 5XD PRN 09/02/16 11/03/17 Eucerin Creme 1 appl TP BID 09/02/16 11/03/17 Insulin ASPART [NovoLOG] 5 unit SQ HS 09/02/16 11/03/17 Latanoprost [Xalatan] 1 drop RIGHT EYE HS 02/03/17 11/03/17 Levothyroxine Sodium [Synthroid] 137 mcg PO QAM 02/03/17 11/03/17 Propranolol [Inderal] 10 mg PO BID 02/03/17 11/03/17 Aspirin [Lo-Dose Aspirin EC] 81 mg PO DAILY 10/15/17 11/03/17 Tramadol HCl [Ultram] 50 mg PO DAILY PRN 10/15/17 11/03/17 Allergies Allergy/AdvReac Type Severity Reaction Status Date / Time venom-honey bee Allergy Severe Anaphylaxis Verified 11/03/17 16:14 [bee venom (honey bee)] felodipine AdvReac LACK OF Verified 11/03/17 16:14 THERAPY gabapentin AdvReac See Verified 11/03/17 16:14 Comments isosorbide AdvReac se Verified 11/03/17 16:14 metformin AdvReac KIDNEY Verified 11/03/17 16:14 DAMAGE metoprolol AdvReac LACK OF Verified 11/03/17 16:14 THERAPY All systems ED: reviewed and negative except as stated. Review of Systems: As Per HPI Constitutional: Denies: fever, chills, weakness Eyes: Reports: vision change (Blurry vision) Cardiovascular: Denies: chest pain, palpitations Respiratory: Reports: dyspnea. Denies: cough, wheezes Gastrointestinal: Denies: abdominal pain, nausea, vomiting, melena Genitourinary: Denies: urgency, dysuria, frequency Musculoskeletal: Reports: back pain Integumentary: Denies: rash Neurological: Denies: headache Hematological/Lymphatic: Denies: easy bleeding Past Medical History - Past Medical History Medical history: Reports: cancer, cirrhosis, diabetes, dialysis, hepatitis, hypertension, liver disease Surgical history: Reports: appendectomy, orthopedic, other Psychiatric history: Reports: no psych history, other - Social History Smoking Status: Former smoker Smokeless Tobacco Status: No Alcohol use: Reports: none Drug use: Reports: none Physical Exam - General Limitations: no limitations General appearance: alert - Head Head exam: atraumatic, normocephalic - ENT ENT exam: normal exam - Neck Neck exam: Present: normal inspection, trachea midline. Absent: tenderness - Chest Chest inspection: Present: normal inspection, symmetric chest wall rise. Absent : rash - Respiratory Respiratory exam: Present: other (rales bilaterally in bases) - Cardiovascular Cardiovascular exam: Present: regular rate, normal rhythm - Abdominal Exam Abdominal exam: Present: soft, Non-Tender, distention - Extremities Exam Extremities exam: Present: normal inspection, full ROM - Neurological Exam Neurological exam: Present: alert, oriented X3, CN II-XII intact. Absent: motor sensory deficit - Psychiatric Psychiatric exam: Present: normal affect, normal mood - Skin Skin exam: Present: warm, dry, intact Course Course Narrative: 77yo male with a past medical history CHF, a fib, end-stage renal dialysis, cirrhosis, diabetes who presented to [facility] ED complaining of increased shortness of breath for about one week. He was recently admitted for difficulty in breathing and required dialysis. He skipped his dialysis appointments yesterday. No new fever, chills, cough, chest pain, trauma. This is likely fluid overload secondary to noncompliance of dialysis, cirrhosis. 10/17/2017 TTE : EF 60%, indeterminate diastolic dysfunction. CHF exacerbation unlikely. Will order CBC, BMP, BMP, chest x-ray, troponin, EKG. May contact nephrology about possible dialysis. - Reevaluation(s) Reevaluation #1: Chest x-ray demonstrated right pleural effusion. CBC shows chronic anemia, BMP unremarkable besides chronic elevated creatinine. Discuss with vb developer who agreed to see the patient due to the fluid overload and need for possible dialysis. Time: 15:58 Vital Signs Temperature 98.6 F 11/03/17 14:07 Pulse Rate 78 11/03/17 14:07 Respiratory Rate 22 11/03/17 14:07 Blood Pressure 188/71 11/03/17 14:07 O2 Sat by Pulse Oximetry 98 11/03/17 14:07 Temperature 97.9 F 11/03/17 23:29 Pulse Rate 70 11/03/17 23:29 Respiratory Rate 18 11/03/17 23:29 Blood Pressure 167/70 11/03/17 23:29 O2 Sat by Pulse Oximetry 98 11/03/17 23:29 Oxygen Delivery Oxygen Delivery Nasal Cannula Shortness of Breath/Dyspnea - MDM Narrative Medical decision making narrative: 77yo male with a past medical history CHF, a fib, end-stage renal dialysis, cirrhosis, diabetes, COPD who presented to [facility] ED complaining of increased shortness of breath for about one week. He has dialysis on MWF and he skipped dialysis yesterday due to a birthday green party. He denies any change in dietary or fluid intake. He was admitted to weeks ago due to difficulty in breathing and fluid overload requiring dialysis. Chest x-ray demonstrated right pleural effusion. CBC, BMP, troponin, coags, hepatic panel unremarkable besides chronically elevated creatinine. EKG demonstrated a fib with no ST or T wave changes indicating ischemia. The patient is a noncompliant end-stage renal dialysis patient. His shortness of breath is likely secondary to fluid overload divers demonstrated by chest x-ray and his report of skipping dialysis. It is unlikely that this is secondary to pneumonia, MS, COPD exacerbation. I spoke with her vb developer Dr. Aguilera who will see the patient this evening. Patient was given 20 mg IV Lasix. The hospital is accepted admission of the patient for shortness of breath due to fluid overload secondary to ESRD. The patient is alert and oriented times 3 and is agreeable to admission, stated a clear understanding of the treatment plan. - Differential Diagnosis Likely: acute exacerbation of chronic obstructive airways disease, congestive heart failure, pneumonia - Medical Records Medical records reviewed: Yes I reviewed the patient's medical records. - Lab Data Lab results reviewed: Yes I reviewed the patient's lab results. Result diagrams: 11/03/17 14:32 11/03/17 14:32 Lab Results 11/03/17 11/03/17 11/03/17 Range/Units 14:32 14:32 14:32 WBC 4.7 (4.3-11.1) K/mcL RBC 3.22 L (4.19-5.50) M/mcL Hgb 10.6 L (12.9-16.9) g/dL Hct 32.4 L (37.5-50.1) % MCV 100.6 H (83.0-100.0) fL MCH 32.9 (28.0-33.3) pg MCHC 32.7 (31.6-35.5) g/dL RDW 14.1 (11.5-14.5) % Plt Count 91 L (140-400) K/mcL MPV 10.7 (9.4-12.4) fL Immature Gran % 0.4 (0-4) % Seg Neutrophils % 72.8 % Lymphocytes % 13.7 % Monocytes % 5.5 % Eosinophils % 7.2 % Basophils % 0.4 % Neutrophils # 3.4 (1.6-8.9) K/mcL Lymphocytes # 0.6 (0.6-4.6) K/mcL Monocytes # 0.3 (0.0-1.3) K/mcL Eosinophils # 0.3 (0.0-0.6) K/mcL Basophils # 0.0 (0.0-0.2) K/mcL Immature Plt Fraction 4.2 (1.1-6.1) % PT (9.4-12.1) Seconds INR Sodium 142 (136-145) mEq/L Potassium 5.0 (3.5-5.1) mEq/L Chloride 106 (98-107) mEq/L Carbon Dioxide 27 (23-29) mEq/L BUN 64 H (8-23) mg/dL Creatinine 6.46 H (0.70-1.30) mg/dL Est GFR ( Amer) 10 L (> 60) Est GFR (Non-Af Amer) 8 L (> 60) BUN/Creatinine Ratio 10 (6-26) Glucose 121 H (70-105) mg/dL Calculated Osmolality 314 H (280-300) Calcium 9.4 (8.6-10.3) mg/dL Total Bilirubin 0.4 (0.3-1.0) mg/dL Direct Bilirubin 0.2 (0.0-0.2) mg/dL Indirect Bilirubin 0.2 (0.0-1.2) mg/dL AST 24 (13-39) Units/L ALT 31 (7-52) Units/L Alkaline Phosphatase 97 (34-104) Units/L Troponin I 0.03 (< 0.04) ng/mL B-Natriuretic Peptide 434 H (Less than 100) pg/mL Serum Total Protein 6.4 (6.4-8.9) g/dL Albumin 3.5 (3.5-5.7) g/dL Globulin 2.9 (2.4-3.5) g/dL Albumin/Globulin Ratio 1.2 (1.1-2.2) 11/03/17 Range/Units 14:32 WBC (4.3-11.1) K/mcL RBC (4.19-5.50) M/mcL Hgb (12.9-16.9) g/dL Hct (37.5-50.1) % MCV (83.0-100.0) fL MCH (28.0-33.3) pg MCHC (31.6-35.5) g/dL RDW (11.5-14.5) % Plt Count (140-400) K/mcL MPV (9.4-12.4) fL Immature Gran % (0-4) % Seg Neutrophils % % Lymphocytes % % Monocytes % % Eosinophils % % Basophils % % Neutrophils # (1.6-8.9) K/mcL Lymphocytes # (0.6-4.6) K/mcL Monocytes # (0.0-1.3) K/mcL Eosinophils # (0.0-0.6) K/mcL Basophils # (0.0-0.2) K/mcL Immature Plt Fraction (1.1-6.1) % PT 12.2 H (9.4-12.1) Seconds INR 1.1 Sodium (136-145) mEq/L Potassium (3.5-5.1) mEq/L Chloride (98-107) mEq/L Carbon Dioxide (23-29) mEq/L BUN (8-23) mg/dL Creatinine (0.70-1.30) mg/dL Est GFR ( Amer) (> 60) Est GFR (Non-Af Amer) (> 60) BUN/Creatinine Ratio (6-26) Glucose (70-105) mg/dL Calculated Osmolality (280-300) Calcium (8.6-10.3) mg/dL Total Bilirubin (0.3-1.0) mg/dL Direct Bilirubin (0.0-0.2) mg/dL Indirect Bilirubin (0.0-1.2) mg/dL AST (13-39) Units/L ALT (7-52) Units/L Alkaline Phosphatase (34-104) Units/L Troponin I (< 0.04) ng/mL B-Natriuretic Peptide (Less than 100) pg/mL Serum Total Protein (6.4-8.9) g/dL Albumin (3.5-5.7) g/dL Globulin (2.4-3.5) g/dL Albumin/Globulin Ratio (1.1-2.2) - Radiology Data Radiology results reviewed: Yes I reviewed the patient's radiology results. Chest X-Ray 11/03/17 14:11 IMPRESSION: 1. Cardiomegaly with pulmonary vascular congestion and right pleural effusion suggesting congestive heart failure. 2. Increased opacification at the right lung base could represent increasing right pleural fluid or possibly atelectasis or pneumonia. D/ / 11/03/2017 15:11:06 Tae Hernanedz MD / Cary Segura Interpreting Provider: Tae Hernandez MD - EKG Data EKG attestation: Yes I reviewed and interpreted this EKG. EKG results narrative: EKG demonstrating atrial fibrillation, heart rate 72, left axis deviation, no ST or T wave changes. QRS 94, QT/QTC 405/430 Rate: Reports: normal Rhythm: Reports: A.Fib [place]/QRS: Reports: left axis deviation
[2017-11-03 15:07] LABS: Albumin 3.5 g/dL (3.5-5.7); Albumin/Globulin Ratio 1.2 (1.1-2.2); Bilirubin,Direct 0.2 mg/dL (0.0-0.2); Bilirubin,Indirect 0.2 mg/dL (0.0-1.2); Bilirubin,Total 0.4 mg/dL (0.3-1.0); Calcium 9.4 mg/dL (8.6-10.3); Globulin 2.9 g/dL (2.4-3.5); Total Protein 6.4 g/dL (6.4-8.9); Troponin I 0.03 ng/mL (< 0.04)
[2017-11-03 15:13] LABS: INR 1.1; Prothrombin Time 12.2 Seconds (9.4-12.1)
[2017-11-03 15:25] LABS: Basophils % 0.4 %; Eosinophils # 0.3 K/mcL (0.0-0.6); Eosinophils % 7.2 %; Hematocrit 32.4 % (37.5-50.1); Hemoglobin 10.6 g/dL (12.9-16.9); Immature Granulocytes % 0.4 % (0-4); Immature Platelets 4.2 % (1.1-6.1); Lymphocytes # 0.6 K/mcL (0.6-4.6); Lymphocytes % 13.7 %; Mean Corpuscular HGB Conc 32.7 g/dL (31.6-35.5); Mean Corpuscular Hemoglobin 32.9 pg (28.0-33.3); Mean Corpuscular Volume 100.6 fL (83.0-100.0); Mean Platelet Volume 10.7 fL (9.4-12.4); Monocytes # 0.3 K/mcL (0.0-1.3); Monocytes % 5.5 %; Neutrophils # 3.4 K/mcL (1.6-8.9); Red Blood Count 3.22 M/mcL (4.19-5.50); Red Cell Distribution Width 14.1 % (11.5-14.5); Segmented Neutrophils % 72.8 %
[2017-11-03 15:27] LABS: Platelet Count 91 K/mcL (140-400)
--- NOTE | 2017-11-03 15:44 | Emergency Department Note ---
Disposition Clinical Impression: CHF exacerbation, ESRD (end stage renal disease) on dialysis Disposition: Admitted As Inpatient Condition: Good Forms: ED Satisfaction Letter SOB HPI - General Chief Complaint: ED Shortness of Breath/Dyspnea Stated Complaint: "Renal Failure" Time Seen by Provider: 11/03/17 14:08 Source: patient, EMS Mode of arrival: ambulatory Limitations: no limitations Nursing Notes Reviewed: Yes Vital Signs Reviewed: Yes - Related Data Home Medications Medication Instructions Recorded Confirmed Insulin ASPART [NovoLOG] 10 unit SQ TIDAC 08/03/15 10/15/17 Insulin Glargine,Hum.rec.anlog 45 unit SQ ONCE 08/03/15 10/15/17 [Lantus Solostar] Lisinopril [Zestril] 20 mg PO DAILY 08/03/15 10/15/17 Renal Vitamin [Renal Caps Softgel] 1 mg PO DAILY 08/03/15 10/15/17 amLODIPine [Norvasc] 5 mg PO HS 08/03/15 10/15/17 Calcium Acetate [Phos-LO] 2,001 mg PO TIDWM 08/31/15 10/15/17 Terazosin [Hytrin] 10 mg PO HS 08/31/15 10/15/17 Azelastine 0.1% Nasal [place] 2 spray NS BID PRN 09/02/16 10/15/17 [Astelin] Capsaicin [Arthritis Pain Relief] 1 appl TP 5XD PRN 09/02/16 10/15/17 Eucerin Creme 1 appl TP BID 09/02/16 10/15/17 Insulin ASPART [NovoLOG] 5 unit SQ QPM 09/02/16 10/15/17 Latanoprost [Xalatan] 1 drop RIGHT EYE HS 02/03/17 10/15/17 Levothyroxine Sodium [Synthroid] 137 mcg PO QAM 02/03/17 10/15/17 Propranolol [Inderal] 10 mg PO BID 02/03/17 10/15/17 Aspirin [Lo-Dose Aspirin EC] 81 mg PO DAILY 10/15/17 10/15/17 Tramadol HCl [Ultram] 50 mg PO DAILY PRN 10/15/17 10/15/17 Allergies Allergy/AdvReac Type Severity Reaction Status Date / Time venom-honey bee Allergy Severe Anaphylaxis Verified 11/03/17 16:14 [bee venom (honey bee)] felodipine AdvReac LACK OF Verified 11/03/17 16:14 THERAPY gabapentin AdvReac See Verified 11/03/17 16:14 Comments isosorbide AdvReac se Verified 11/03/17 16:14 metformin AdvReac KIDNEY Verified 11/03/17 16:14 DAMAGE metoprolol AdvReac LACK OF Verified 11/03/17 16:14 THERAPY All systems ED: reviewed and negative except as stated. Review of Systems: As Per HPI Constitutional: Denies: fever, chills, weakness Eyes: Reports: vision change (Blurry vision) Cardiovascular: Denies: chest pain, palpitations Respiratory: Reports: dyspnea. Denies: cough, wheezes Gastrointestinal: Denies: abdominal pain, nausea, vomiting, melena Genitourinary: Denies: urgency, dysuria, frequency Musculoskeletal: Reports: back pain Integumentary: Denies: rash Neurological: Denies: headache Hematological/Lymphatic: Denies: easy bleeding Past Medical History - Past Medical History Attestation: Yes The following information was validated with the patient. Source: patient Medical history: Reports: cancer, cirrhosis, diabetes, dialysis, hepatitis, hypertension, liver disease Surgical history: Reports: appendectomy, orthopedic, other Psychiatric history: Reports: no psych history, other - Social History Smoking Status: Former smoker Smokeless Tobacco Status: No Alcohol use: Reports: none Drug use: Reports: none Physical Exam - General Limitations: no limitations General appearance: alert Course Vital Signs Temperature 98.6 F 11/03/17 14:07 Pulse Rate 78 11/03/17 14:07 Respiratory Rate 22 11/03/17 14:07 Blood Pressure 188/71 11/03/17 14:07 O2 Sat by Pulse Oximetry 98 11/03/17 14:07 Temperature 98.6 F 11/03/17 14:07 Pulse Rate 78 11/03/17 14:07 Respiratory Rate 22 11/03/17 14:07 Blood Pressure 188/71 11/03/17 14:07 O2 Sat by Pulse Oximetry 97 11/03/17 14:35 Oxygen Delivery Oxygen Delivery Nasal Cannula Shortness of Breath/Dyspnea - Lab Data Result diagrams: 11/03/17 14:32 11/03/17 14:32 Lab Results 11/03/17 11/03/17 11/03/17 Range/Units 14:32 14:32 14:32 WBC 4.7 (4.3-11.1) K/mcL RBC 3.22 L (4.19-5.50) M/mcL Hgb 10.6 L (12.9-16.9) g/dL Hct 32.4 L (37.5-50.1) % MCV 100.6 H (83.0-100.0) fL MCH 32.9 (28.0-33.3) pg MCHC 32.7 (31.6-35.5) g/dL RDW 14.1 (11.5-14.5) % Plt Count 91 L (140-400) K/mcL MPV 10.7 (9.4-12.4) fL Immature Gran % 0.4 (0-4) % Seg Neutrophils % 72.8 % Lymphocytes % 13.7 % Monocytes % 5.5 % Eosinophils % 7.2 % Basophils % 0.4 % Neutrophils # 3.4 (1.6-8.9) K/mcL Lymphocytes # 0.6 (0.6-4.6) K/mcL Monocytes # 0.3 (0.0-1.3) K/mcL Eosinophils # 0.3 (0.0-0.6) K/mcL Basophils # 0.0 (0.0-0.2) K/mcL Immature Plt Fraction 4.2 (1.1-6.1) % PT 12.2 H (9.4-12.1) Seconds INR 1.1 Sodium 142 (136-145) mEq/L Potassium 5.0 (3.5-5.1) mEq/L Chloride 106 (98-107) mEq/L Carbon Dioxide 27 (23-29) mEq/L BUN 64 H (8-23) mg/dL Creatinine 6.46 H (0.70-1.30) mg/dL Est GFR ( Amer) 10 L (> 60) Est GFR (Non-Af Amer) 8 L (> 60) BUN/Creatinine Ratio 10 (6-26) Glucose 121 H (70-105) mg/dL Calculated Osmolality 314 H (280-300) Calcium 9.4 (8.6-10.3) mg/dL Total Bilirubin 0.4 (0.3-1.0) mg/dL Direct Bilirubin 0.2 (0.0-0.2) mg/dL Indirect Bilirubin 0.2 (0.0-1.2) mg/dL AST 24 (13-39) Units/L ALT 31 (7-52) Units/L Alkaline Phosphatase 97 (34-104) Units/L Troponin I 0.03 (< 0.04) ng/mL Serum Total Protein 6.4 (6.4-8.9) g/dL Albumin 3.5 (3.5-5.7) g/dL Globulin 2.9 (2.4-3.5) g/dL Albumin/Globulin Ratio 1.2 (1.1-2.2) Attestation Statement - Attestation Attestation: I, Steven Stapleton, examined this patient and my medical decision-making was reviewed with the HEEL SCOURER/PA/Advanced Practice Nurse/Resident Physician. I agree with the documented findings, disposition and treatment plan as described except to the extent set forth below. 77-year-old male presents emergency department with concerns of dyspnea with exertion. Patient states he has a long history of renal failure. He states his symptoms have been worsening over the past week. No chest pain, rash, fever , abdominal pain, diarrhea, hematochezia, melena. Patient has a history of liver cirrhosis and has a very large abdomen however he states that this is no larger than normal. He denies abdominal pain and this is less likely SBP. Her tenderness palpation of the abdomen. There is crackles in lungs bilaterally. Patient was sent to the emergency department from the [place] for further evaluation of his dyspnea. He sees Dr. Noriega of [place] for his frame changer however he has seen Dr. Atkinson in the past. Resident spoke with Dr. Heart regarding the patient's care and presentation and he agreed with the plan for admission for further care and his dialysis.
[2017-11-03] MEDS ORDERED: Furosemide 40 MG TABLET PO ONE (17:02)
[2017-11-03] MEDS ORDERED: Capsaicin 0.025% 60 GM TUBE TP PRN (17:42)
[2017-11-03] MEDS ORDERED: traMADol 50 MG TABLET PO PRN ×2 (17:42→18:48)
[2017-11-03] MEDS ORDERED: Azelastine 0.1% Nasal Spray 30 ML BOTTLE NS PRN (17:42)
[2017-11-03] MEDS ORDERED: D5% in Water 1,000 ML IVC PRN (18:07)
[2017-11-03] MEDS ORDERED: *HR* Dextrose 50 % in Water (Syg) 50 ML SYRINGE IVP PRN (18:07)
[2017-11-03] MEDS ORDERED: Dextrose Gel 15 GM/37.5 ML TUBE PO PRN ×2 (18:07)
[2017-11-03] MEDS ORDERED: Naloxone 0.4 MG/ML INJ IVP PRN (18:43)
[2017-11-03] MEDS ORDERED: Acetaminophen 325 MG TABLET PO PRN (18:43)
--- NOTE | 2017-11-03 18:54 | Internal Med History&Physical ---
Date of Encounter: 11/03/17 Time of Encounter: 18:49 Internal Medicine - H&P: HPI Chief complaint: "Short of breath" Admitted From: Emergency Dept Plans for Post Hospital Care: Home History of present illness: Mr. Betts is a 77 year old male with PMH of ESRD on dialysis M-W-F, CHF, and liver cirrhosis, who presented to ED today with subacute SOB. He states that he has been having progressively worsening SOB for the last 1 week. He missed his dialysis yesterday due to a family birthday. He states that his outpatient dialysis does not work as good at removing his fluid like inpatient dialysis. He states that he does not wear oxygen at home. He denies fever, chills, chest pain, nausea, vomiting, abdominal pain, changes in bladder, or changes in bowel. He follows up with Dr. Noriega in [place] for nephrology. At the time of my interview, he states that breathing is somewhat better. He is on 3L NC. He denies any worsening BLE edema than baseline. He has no other complaints. In the ED, creatinine was 6.46. Hemoglobin was at baseline of 10.6. CXR showed cardiomegaly with pulmonary vascular congestion and right pleural effusion. There is also opacification of right lung base representing atelectasis vs pneumonia. He was given 1 dose of lasix [address] Aguilera was consulted by ED, and he agreed to follow patient for dialysis. Past Med Surg Social Fam HX - Past Medical History Attestation: Yes The following information was validated with the patient. Source: patient Medical history: cancer, cirrhosis, diabetes, dialysis, hepatitis, hypertension , liver disease Additional medical history: skin CA Psychiatric history: no psych history, other - Past Surgical History Surgical History: appendectomy, orthopedic, other Additional surgical history: Tonsilectomy - Social History Smoking Status: Former smoker Smokeless Tobacco Status: No Alcohol use: none Drug use: none - Family History Mother Adopted: Yes Living Status: Father Adopted: Yes Living Status: - Additional Family History Additional family history: Family history reviewed with patient. Internal Medicine - H&P: Meds Insulin ASPART [NovoLOG] 10 unit SQ TIDAC 08/03/15 [History] Insulin Glargine,Hum.rec.anlog [Lantus Solostar] 45 unit SQ ONCE 08/03/15 [ History] Lisinopril [Zestril] 20 mg PO DAILY 08/03/15 [History] Renal Vitamin [Renal Caps Softgel] 1 mg PO DAILY 08/03/15 [History] amLODIPine [Norvasc] 5 mg PO HS 08/03/15 [History] Calcium Acetate [Phos-LO] 2,001 mg PO TIDWM 08/31/15 [History] Terazosin [Hytrin] 10 mg PO HS 08/31/15 [History] Azelastine 0.1% Nasal [place] [Astelin] 2 spray NS BID PRN 09/02/16 [History] Capsaicin [Arthritis Pain Relief] 1 appl TP 5XD PRN 09/02/16 [History] Eucerin Creme 1 appl TP BID 09/02/16 [History] Insulin ASPART [NovoLOG] 5 unit SQ HS 09/02/16 [History] Latanoprost [Xalatan] 1 drop RIGHT EYE HS 02/03/17 [History] Levothyroxine Sodium [Synthroid] 137 mcg PO QAM 02/03/17 [History] Propranolol [Inderal] 10 mg PO BID 02/03/17 [History] Aspirin [Lo-Dose Aspirin EC] 81 mg PO DAILY 10/15/17 [History] Tramadol HCl [Ultram] 50 mg PO DAILY PRN 10/15/17 [History] 3 Allergy/AdvReac Type Severity Reaction Status Date / Time venom-honey bee Allergy Severe Anaphylaxis Verified 11/03/17 16:14 [bee venom (honey bee)] felodipine AdvReac LACK OF Verified 11/03/17 16:14 THERAPY gabapentin AdvReac See Verified 11/03/17 16:14 Comments isosorbide AdvReac se Verified 11/03/17 16:14 metformin AdvReac KIDNEY Verified 11/03/17 16:14 DAMAGE metoprolol AdvReac LACK OF Verified 11/03/17 16:14 THERAPY All Systems PM: A 10-system review of systems was performed and is negative for pertinent findings except as documented above in the HPI. - Constitutional Vitals: Temp Pulse Resp BP Pulse Ox 98.6 F 78 22 188/71 97 11/03/17 14:07 11/03/17 14:07 11/03/17 14:07 11/03/17 14:07 11/03/17 14:35 General appearance: Present: cooperative, A&O X 3, pleasant, no acute distress, answers questions appropriately - Head Head exam: Present: atraumatic, normal inspection, normocephalic - Eye Eye exam: Present: EOMI, PERRL. Absent: conjunctival injection, nystagmus, scleral icterus - ENT ENT exam: Present: mucous membranes moist, normal external ear exam, normal oropharynx - Neck Neck exam general surgery: Present: supple, trachea midline. Absent: lymphadenopathy, tenderness, thyromegaly - Respiratory Respiratory exam: Absent: accessory muscle use, rales, rhonchi, wheezes Additional comments: Mildly labored WOB, crackles at bilaterally bases - Cardiovascular Cardiovascular exam: Present: RRR, +S1, +S2. Absent: diastolic murmur, gallop, rubs, systolic murmur Additional comments: Trace BLE edema - GI/Abdominal GI/Abdominal exam: Present: normal bowel sounds, soft. Absent: distended, hepatomegaly, mass, splenomegaly, tenderness - Neurological Exam Neurological exam: Present: alert, CN II-XII intact, oriented X3, no focal deficits, strengths equal and symetr throughout. Absent: motor sensory deficit , facial droop, speech deficit - Psychiatric Psychiatric exam: Present: normal affect, normal mood. Absent: agitated, anxious, depressed - Skin Skin exam: Present: dry, intact, warm. Absent: cyanosis, rash Internal Med - H&P Results - Labs CBC & Chem 7: 11/03/17 14:32 11/03/17 14:32 Labs: Short CBC 11/03/17 Range/Units 14:32 WBC 4.7 (4.3-11.1) K/mcL Hgb 10.6 L (12.9-16.9) g/dL Hct 32.4 L (37.5-50.1) % Plt Count 91 L (140-400) K/mcL Neutrophils # 3.4 (1.6-8.9) K/mcL BMP 11/03/17 14:32 Sodium 142 Potassium 5.0 Chloride 106 Carbon Dioxide 27 BUN 64 H Creatinine 6.46 H Glucose 121 H Calcium 9.4 Cardiac Enzymes 11/03/17 Range/Units 14:32 Troponin I 0.03 (< 0.04) ng/mL Liver Function 11/03/17 Range/Units 14:32 Total Bilirubin 0.4 (0.3-1.0) mg/dL Direct Bilirubin 0.2 (0.0-0.2) mg/dL AST 24 (13-39) Units/L ALT 31 (7-52) Units/L Alkaline Phosphatase 97 (34-104) Units/L Albumin 3.5 (3.5-5.7) g/dL - Impressions ITS Impressions Chest X-Ray 11/03/17 14:11 IMPRESSION: 1. Cardiomegaly with pulmonary vascular congestion and right pleural effusion suggesting congestive heart failure. 2. Increased opacification at the right lung base could represent increasing right pleural fluid or possibly atelectasis or pneumonia. D/ / 11/03/2017 15:11:06 Tae Hernandez MD / Cary Segura Interpreting Provider: Tae Hernandez MD - Assessment and plan (1) CHF exacerbation Current Visit: Yes Status: Acute Assessment and plan: Admit inpatient with telemetry. Diurese gently with lasix 40 mg IV QD. Restrict fluids to 2L/day and sodium to 2 grams/day. PT/OT consulted. Monitor strict I&Os. Monitor daily weights. Nephrology consulted for dialysis; appreciate input. Recheck labwork in AM. Qualifiers: Heart failure type: unspecified Qualified Code(s): I50.9 - Heart failure, unspecified (2) (HFpEF) heart failure with preserved ejection fraction Current Visit: No Status: Chronic Assessment and plan: Management as per above. (3) ESRD (end stage renal disease) on dialysis Current Visit: Yes Status: Chronic Assessment and plan: Nephrology consulted for dialysis; appreciate input. (4) Anemia Current Visit: No Status: Chronic Assessment and plan: Chronic and at baseline. Likely secondary to renal disease. Recheck CBC in AM. Qualifiers: Anemia type: other cause Other causes of anemia: other cause, not classified Qualified Code(s): D64.89 - Other specified anemias (5) Diabetes Current Visit: No Status: Acute Assessment and plan: Start accuchecks and SSI QID AC/HS. Continue home long-acting insulin. Start diabetic, cardiac, renal, fluid restricted 2L/day diet. Qualifiers: Diabetes mellitus type: type 2 Diabetes mellitus chcf insulin use: with chcf use Diabetes mellitus complication status: with kidney complications Diabetes mellitus complication detail: with chronic kidney disease Chronic kidney disease stage: on chronic dialysis Qualified Code(s) : E11.22 - Type 2 diabetes mellitus with diabetic chronic kidney disease; N18.6 - End stage renal disease; Z79.4 - penitentiary (current) use of insulin; Z99.2 - Dependence on renal dialysis (6) Fluid overload Current Visit: No Status: Acute Assessment and plan: Management as per above. Qualifiers: Hypervolemia type: unspecified Qualified Code(s): E87.70 - Fluid overload, unspecified (7) Pleural effusion Current Visit: No Status: Acute Assessment and plan: Management as per above. (8) Cirrhosis Current Visit: No Status: Chronic Assessment and plan: No change in ascites. Monitor. Management of fluid overload as per above. Qualifiers: Hepatic cirrhosis type: unspecified hepatic cirrhosis Ascites presence: with ascites Qualified Code(s): K74.60 - Unspecified cirrhosis of liver (9) Hypertension Current Visit: No Status: Chronic Assessment and plan: Continue home medications and PRN IV hydralazine. Qualifiers: Hypertension type: essential hypertension Qualified Code(s): I10 - Essential (primary) hypertension (10) DVT prophylaxis Current Visit: Yes Status: Acute Assessment and plan: Start renally dosed lovenox and SCDs. - Time Spent With Patient Total time spent is greater than 50% in coordination of care (as documented) at patient's floor/unit and/or counseling patient: less than 15 minutes
[2017-11-03] MEDS ORDERED: Albuterol 2.5 MG/3 ML NEBULIZER IH PRN (20:00)
[2017-11-03] MEDS: Lisinopril 20 MG TABLET PO SCH (21:39)
[2017-11-03] MEDS: Renal Vitamin 1 MG CAPSULE PO SCH (21:40)
[2017-11-03] MEDS: Calcium Acetate 667 MG CAPSULE PO SCH (21:41)
[2017-11-03] MEDS: Aspirin Enteric Coated 81 MG Tablet PO SCH (21:42)
[2017-11-03] MEDS: amLODIPine 5 MG TABLET PO SCH (21:52)
[2017-11-03] MEDS: Insulin LISPRO 300 UNITS/3 ML VIAL SQ SCH ×2 (21:53)
[2017-11-03] MEDS: Insulin DETEMIR 100 UNIT/ML X5UNITS SQ SCH (21:53)
[2017-11-03] MEDS: Latanoprost 2.5 ML BOTTLE RIGHT EYE SCH (22:48)
[2017-11-03] MEDS: Eucerin Cream 57 GM TUBE TP SCH (22:49)
[2017-11-04] MEDS: Ipratropium/Albuterol Neb 3 ML IH SCH ×4 (03:43→16:09)
[2017-11-04] MEDS ORDERED: *HR* Enoxaparin 30 MG/0.3 ML SYRINGE SQ SCH (06:00)
[2017-11-04] MEDS ORDERED: 0.9 % Sodium Chloride 250 ML IVC PRN (06:30)
[2017-11-04 06:33] LABS: Calcium 9.1 mg/dL (8.6-10.3); Potassium 4.9 mEq/L (3.5-5.1)
[2017-11-04] MEDS: Insulin LISPRO 300 UNITS/3 ML VIAL SQ SCH ×4 (07:51→20:38)
[2017-11-04] MEDS: Calcium Acetate 667 MG CAPSULE PO SCH ×3 (08:06→17:01)
[2017-11-04] MEDS: Aspirin Enteric Coated 81 MG Tablet PO SCH (08:08)
[2017-11-04] MEDS: Renal Vitamin 1 MG CAPSULE PO SCH (08:09)
[2017-11-04 08:28] LABS: Basophils % 0.2 %; Eosinophils # 0.3 K/mcL (0.0-0.6); Eosinophils % 6.1 %; Hematocrit 31.5 % (37.5-50.1); Immature Granulocytes % 0.4 % (0-4); Immature Platelets 3.9 % (1.1-6.1); Lymphocytes # 0.7 K/mcL (0.6-4.6); Mean Corpuscular Hemoglobin 32.5 pg (28.0-33.3); Mean Corpuscular Volume 102.3 fL (83.0-100.0); Mean Platelet Volume 11.1 fL (9.4-12.4); Monocytes # 0.4 K/mcL (0.0-1.3); Monocytes % 6.5 %; Neutrophils # 4.1 K/mcL (1.6-8.9); Red Blood Count 3.08 M/mcL (4.19-5.50); Segmented Neutrophils % 73.8 %
[2017-11-04 08:31] LABS: Platelet Count 86 K/mcL (140-400)
[2017-11-04 08:34] LABS: Mean Corpuscular HGB Conc 31.7 g/dL (31.6-35.5)
[2017-11-04] MEDS ORDERED: Furosemide 40 MG/4 ML VIAL IVP SCH (09:00)
--- NOTE | 2017-11-04 09:57 | Nephrology Consult Note ---
Date of Encounter: 11/04/17 Time of Encounter: 08:45 Assessment and Plan (1) ESRD (end stage renal disease) on dialysis Status: Chronic HD today for both clearance (he had skipped HD on Thursday) and UF. Plan for another UF tomorrow for back to back fluid removal challenge. I counseled him about fluid restriction, dietary complaince and dialysis compliance. (2) CHF exacerbation Status: Acute As per primary, but I'll plan to utilize dialysis to help remove volume. Qualifiers: Heart failure type: unspecified Qualified Code(s): I50.9 - Heart failure, unspecified (3) Anemia Status: Chronic Will assess Hgb for a goal of 10-11 and will arrange EPO and / or IV iron. Qualifiers: Anemia type: due to chronic kidney disease Chronic kidney disease stage: on chronic dialysis Qualified Code(s): N18.6 - End stage renal disease; D63.1 - Anemia in chronic kidney disease; Z99.2 - Dependence on renal dialysis (4) Fluid overload Status: Acute See above. Qualifiers: Hypervolemia type: unspecified Qualified Code(s): E87.70 - Fluid overload, unspecified History of Present Illness - Reason for Consult Consult date: 11/03/17 end stage renal disease Requesting physician: Layo Levin - Chief Complaint ESRD with missed HD and edema - History of Present Illness 77 y/o obese WM with a pertinent pmh of HTN, DM, Obesity, ESRD on HD M/W/F who presented with shortness of breath and etc. Nephrology was consulted for volume status/edema plus continuation of his HD. His primary ship keeper is Dr. Mcfarlane in [place], [place], he confirmed. He missed his last dialysis he said d/ t having other things to do. He c/o being very short of breath today and voiced hoping for and asking for extra treatments this week to remove more volume. He denied active CP, N/V/D or any recent dialysis related problems with his access. Past Med Surg Social Fam HX - Past Medical History Medical history: cancer, cirrhosis, diabetes, dialysis, hepatitis, hypertension , liver disease Additional medical history: skin CA Psychiatric history: no psych history, other - Past Surgical History Surgical History: appendectomy, orthopedic, other Additional surgical history: Tonsilectomy - Social History Smoking Status: Former smoker Smokeless Tobacco Status: No Alcohol use: none Drug use: none - Family History Mother Adopted: Yes Living Status: Father Adopted: Yes Living Status: Medications and Allergies Insulin ASPART [NovoLOG] 10 unit SQ TIDAC 08/03/15 [History] Lisinopril [Zestril] 20 mg PO DAILY 08/03/15 [History] Renal Vitamin [Renal Caps Softgel] 1 mg PO DAILY 08/03/15 [History] amLODIPine [Norvasc] 5 mg PO HS 08/03/15 [History] Calcium Acetate [Phos-LO] 2,001 mg PO TIDWM 08/31/15 [History] Terazosin [Hytrin] 10 mg PO HS 08/31/15 [History] Azelastine 0.1% Nasal [place] [Astelin] 2 spray NS BID PRN 09/02/16 [History] Capsaicin [Arthritis Pain Relief] 1 appl TP 5XD PRN 09/02/16 [History] Eucerin Creme 1 appl TP BID 09/02/16 [History] Insulin ASPART [NovoLOG] 5 unit SQ HS 09/02/16 [History] Latanoprost [Xalatan] 1 drop RIGHT EYE HS 02/03/17 [History] Levothyroxine Sodium [Synthroid] 137 mcg PO QAM 02/03/17 [History] Propranolol [Inderal] 10 mg PO BID 02/03/17 [History] Aspirin [Lo-Dose Aspirin EC] 81 mg PO DAILY 10/15/17 [History] Tramadol HCl [Ultram] 50 mg PO DAILY PRN 10/15/17 [History] Insulin [place] [Levemir] 45 unit SQ QAM x3icyhe 11/05/17 [Rx] 3 Allergy/AdvReac Type Severity Reaction Status Date / Time venom-honey bee Allergy Severe Anaphylaxis Verified 11/03/17 16:14 [bee venom (honey bee)] felodipine AdvReac LACK OF Verified 11/03/17 16:14 THERAPY gabapentin AdvReac See Verified 11/03/17 16:14 Comments isosorbide AdvReac se Verified 11/03/17 16:14 metformin AdvReac KIDNEY Verified 11/03/17 16:14 DAMAGE metoprolol AdvReac LACK OF Verified 11/03/17 16:14 THERAPY Review of Systems All Systems: reviewed and no additional remarkable complaints except as stated Exam - Vital Signs Vital signs: Initial Vital Signs Temp Pulse Resp BP Pulse Ox 98.6 F 78 22 188/71 98 11/03/17 14:07 11/03/17 14:07 11/03/17 14:07 11/03/17 14:07 11/03/17 14:07 Vital Signs - Last 8 Hours Temp Pulse Resp BP Pulse Ox 11/04/17 07:11 97.8 F 79 19 162/87 97 11/04/17 04:58 74 16 164/69 96 Intake and Output 11/03/17 11/04/17 11/04/17 23:59 07:59 15:59 Intake Total 120 / 120 Output Total 275 / 275 Balance -275 / -275 120 / 120 Intake: Oral 120 / 120 Output: Urine 275 / 275 Other: Meal Breakfast Percent of Meal Consumed 90% Blood Glucose* 129 119 - General Appearance General appearance: well-developed, well-nourished, appears started age, obese EENT: ATNC, PERRL, mucous membranes moist Neck: supple Respiratory: rales Cardiology: edema, regular rate, regular rhythm, normal S1, normal S2 - Dialysis Access Dialysis Vascular Access: Arteriovenous Fistula thrill: Yes bruit: Yes Gastrointestinal: normoactive bowel sounds, no tenderness, no guarding Integumentary: warm and dry Neurologic: no focal deficit, no asterixis, alert and oriented x3 Musculoskeletal: no deformities, no erythema, no cyanosis, no clubbing Psychiatric: mood/affect appropriate, cooperative Results - Lab Results 11/05/17 05:46 11/05/17 05:46 Most recent lab results Calcium 9.1 mg/dL (8.6-10.3) 11/04/17 05:33 I reviewed the labs, med lists, vitals, imaging and progress notes. Consult Discharge Plan - Plan Instructions: Heart Failure (DC), Dyspnea (GEN) Additional Instructions: F/up with HD 3times/week- MWF [facility]errals: [facility] [Primary Care Provider] - 11/10/17 12:30 pm (Please follow up as schedule...)
[2017-11-04] MEDS: Eucerin Cream 57 GM TUBE TP SCH ×2 (12:37→20:32)
[2017-11-04] MEDS: Lisinopril 20 MG TABLET PO SCH (12:37)
--- NOTE | 2017-11-04 13:33 | Internal Med Progress Note ---
Date of Encounter: 11/04/17 Time of Encounter: 13:31 - Assessment and plan (1) CHF exacerbation Current Visit: Yes Status: Acute Assessment and plan: Began after missing dialysis. Fluid restrict Strict I/Os Nephrology on board for dialysis, Had dialysis today likely dialysis tomorrow. Patient refuses IV Lasix Qualifiers: Heart failure type: unspecified Qualified Code(s): I50.9 - Heart failure, unspecified (2) Anemia Current Visit: No Status: Chronic Assessment and plan: Chronic and at baseline. Likely anemia chronic disease. Qualifiers: Anemia type: other cause Other causes of anemia: other cause, not classified Qualified Code(s): D64.89 - Other specified anemias (3) Hypertension Current Visit: No Status: Chronic Assessment and plan: Continue home medications, Lisinopril, Norvasc and PRN IV hydralazine. Consider increasing Norvasc to 10 mg if BP remains elevated. Qualifiers: Hypertension type: essential hypertension Qualified Code(s): I10 - Essential (primary) hypertension (4) DVT prophylaxis Current Visit: Yes Status: Acute Assessment and plan: Change to heparin SQ bilateral (5) Cirrhosis Current Visit: No Status: Chronic Assessment and plan: No change in ascites. Fluid overload management to prevent worsening morbidity. Qualifiers: Hepatic cirrhosis type: unspecified hepatic cirrhosis Ascites presence: with ascites Qualified Code(s): K74.60 - Unspecified cirrhosis of liver; R18.8 - Other ascites (6) Diabetes Current Visit: No Status: Acute Assessment and plan: Aaccuchecks and SSI QID AC/HS. Continue home long-acting insulin. Start diabetic, cardiac, renal, fluid restricted 2L/day diet. Qualifiers: Diabetes mellitus type: type 2 Diabetes mellitus care home insulin use: with care home use Diabetes mellitus complication status: with kidney complications Diabetes mellitus complication detail: with chronic kidney disease Chronic kidney disease stage: on chronic dialysis Qualified Code(s) : E11.22 - Type 2 diabetes mellitus with diabetic chronic kidney disease; N18.6 - End stage renal disease; Z79.4 - group home (current) use of insulin; Z99.2 - Dependence on renal dialysis (7) Fluid overload Current Visit: No Status: Acute Qualifiers: Hypervolemia type: unspecified Qualified Code(s): E87.70 - Fluid overload, unspecified (8) ESRD (end stage renal disease) on dialysis Current Visit: Yes Status: Chronic (9) Pleural effusion Current Visit: No Status: Acute (10) (HFpEF) heart failure with preserved ejection fraction Current Visit: No Status: Chronic - Time Spent With Patient Total time spent is greater than 50% in coordination of care (as documented) at patient's floor/unit and/or counseling patient: - Subjective Interval history: No acute events. - Constitutional Vitals: Temp Pulse Resp BP Pulse Ox 97.8 F 75 19 177/82 95 11/04/17 12:32 11/04/17 12:32 11/04/17 12:32 11/04/17 12:32 11/04/17 12:32 General appearance: Present: cooperative, A&O X 3, pleasant, no acute distress, answers questions appropriately Exam: - Head Head exam: Present: atraumatic, normal inspection, normocephalic - Eye Eye exam: Present: EOMI, PERRL. Absent: conjunctival injection, nystagmus, scleral icterus - ENT ENT exam: Present: mucous membranes moist, normal external ear exam, normal oropharynx - Neck Neck exam general surgery: Present: supple, trachea midline. Absent: lymphadenopathy, tenderness, thyromegaly - Respiratory Respiratory exam: + Rales Absent: accessory muscle use, rhonchi, wheezes - Cardiovascular Cardiovascular exam: Present: RRR, +S1, +S2. Absent: diastolic murmur, gallop, rubs, systolic murmur - GI/Abdominal GI/Abdominal exam: Present: normal bowel sounds, soft. Absent: distended, hepatomegaly, mass, splenomegaly, tenderness - Neurological Exam Neurological exam: Present: alert, CN II-XII intact, oriented X3, no focal deficits, strengths equal and symetr throughout. Absent: motor sensory deficit , facial droop, speech deficit - Psychiatric Psychiatric exam: Present: normal affect, normal mood. Absent: agitated, anxious, depressed - Skin Skin exam: Present: dry, intact, warm. Absent: cyanosis, rash Trace bipedal pitting edema Internal Medicine: Result - Labs CBC & Chem 7: 11/04/17 05:33 11/04/17 05:33 Labs: Short CBC 11/04/17 Range/Units 05:33 WBC 5.5 (4.3-11.1) K/mcL Hgb 10.0 L (12.9-16.9) g/dL Hct 31.5 L (37.5-50.1) % Plt Count 86 L (140-400) K/mcL Neutrophils # 4.1 (1.6-8.9) K/mcL BMP 11/04/17 05:33 Sodium 141 Potassium 4.9 Chloride 108 H Carbon Dioxide 24 BUN 65 H Creatinine 6.57 H Glucose 125 H Calcium 9.1 - ABG Interpretation ABG results: PT/INR, D-dimer PT 12.2 Seconds (9.4-12.1) H 11/03/17 14:32 Consult Discharge Plan - Plan [facility]errals: [facility] [Primary Care Provider] -
--- NOTE | 2017-11-04 16:25 | Electrocardiograph Report ---
[facility] Test Date: 2017-11-03 Pat Name: Juancho Betts Department: 103 Room: 2A33 Gender: M Crematory Attendant: DOROTHY : 1940 Requested By: Kay Etienne Order Number: [id number] Reading MD: Nirmal Jaruqin Measurements Intervals [place] Rate: 72 P: [place]: 0 QRS: -43 QRSD: 94 T: 80 QT: 405 QTc: 430 Interpretive Statements ATRIAL FIBRILLATION MARKED LEFT AXIS DEVIATION [QRS AXIS < -30] LOW QRS VOLTAGE IN EXTREMITY LEADS Electronically Signed On 11-04-2017 16:23:17 EDT by Nirmal Jarquin
[2017-11-04] MEDS: *HR* Heparin 5,000 UNIT/ML VIAL SQ SCH (17:01)
[2017-11-04] MEDS ORDERED: Ipratropium/Albuterol Neb 3 ML IH PRN (19:57)
[2017-11-04] MEDS: amLODIPine 5 MG TABLET PO SCH (20:30)
[2017-11-04] MEDS: Latanoprost 2.5 ML BOTTLE RIGHT EYE SCH (21:39)
[2017-11-05] MEDS: Aspirin Enteric Coated 81 MG Tablet PO SCH (05:32)
[2017-11-05] MEDS: Lisinopril 20 MG TABLET PO SCH (05:32)
[2017-11-05] MEDS: *HR* Heparin 5,000 UNIT/ML VIAL SQ SCH (05:34)
[2017-11-05 06:33] LABS: Potassium 4.8 mEq/L (3.5-5.1)
[2017-11-05 06:55] LABS: Basophils % 0.5 %; Eosinophils # 0.4 K/mcL (0.0-0.6); Eosinophils % 6.9 %; Hematocrit 31.5 % (37.5-50.1); Hemoglobin 10.2 g/dL (12.9-16.9); Immature Granulocytes % 0.5 % (0-4); Immature Platelets 5.1 % (1.1-6.1); Lymphocytes # 0.8 K/mcL (0.6-4.6); Lymphocytes % 14.8 %; Mean Corpuscular HGB Conc 32.4 g/dL (31.6-35.5); Mean Corpuscular Hemoglobin 33.1 pg (28.0-33.3); Mean Corpuscular Volume 102.3 fL (83.0-100.0); Mean Platelet Volume 11.4 fL (9.4-12.4); Monocytes # 0.4 K/mcL (0.0-1.3); Monocytes % 7.5 %; Neutrophils # 3.8 K/mcL (1.6-8.9); Red Blood Count 3.08 M/mcL (4.19-5.50); Red Cell Distribution Width 14.1 % (11.5-14.5); Segmented Neutrophils % 69.8 %
[2017-11-05 06:56] LABS: Platelet Count 79 K/mcL (140-400)
[2017-11-05] MEDS: Calcium Acetate 667 MG CAPSULE PO SCH ×2 (08:04→12:45)
[2017-11-05] MEDS: Renal Vitamin 1 MG CAPSULE PO SCH (08:04)
[2017-11-05] MEDS: Insulin LISPRO 300 UNITS/3 ML VIAL SQ SCH ×3 (08:05→12:44)
[2017-11-05] MEDS: Insulin DETEMIR 100 UNIT/ML X5UNITS SQ SCH (08:05)
[2017-11-05] MEDS: Eucerin Cream 57 GM TUBE TP SCH (08:06)
[2017-11-05] MEDS ORDERED: Albuterol 2.5 MG/3 ML NEBULIZER IH PRN (08:07)
[2017-11-05] MEDS ORDERED: 0.9 % Sodium Chloride 250 ML IVC PRN (08:21)
--- NOTE | 2017-11-05 08:53 | Nephrology Progress Note ---
Date of Encounter: 11/05/17 Time of Encounter: 08:50 - Assessment and Plan (1) ESRD (end stage renal disease) on dialysis Current Visit: Yes Status: Chronic Recommend UF today but patient declines. He says he is below his dry weight and c/o cramping bad yesterday Plan for UF tomorrow Continue renal diet Avoid nephrotoxins if possible (2) CHF exacerbation Current Visit: Yes Status: Acute per primary/cardiology team Qualifiers: Heart failure type: unspecified Qualified Code(s): I50.9 - Heart failure, unspecified (3) Fluid overload Current Visit: No Status: Acute see above Advised not to miss regular scheduled outpatient HD treatments Qualifiers: Hypervolemia type: unspecified Qualified Code(s): E87.70 - Fluid overload, unspecified Subjective Principal diagnosis: ESRD on dialysis, CHF exacerbation Interval history: Patient seen and examined. Feeling well but doesn't understand why he keeps ' filling up with fluid'. Patient thinks it is all related to his heart and doesn 't understand why that isn't being addressed. Objective - Vital Signs Vital signs: Vital Signs Temp Pulse Resp BP Pulse Ox 11/05/17 06:39 98.4 F 74 18 147/56 94 11/05/17 04:43 97.7 F 79 18 152/71 96 11/05/17 00:05 98.5 F 61 16 152/65 92 11/04/17 20:40 98.3 F 68 18 169/70 98 11/04/17 16:09 98.8 F 48 17 149/69 94 11/04/17 15:03 97.9 F 60 18 172/71 99 11/04/17 12:32 97.8 F 75 19 177/82 95 11/04/17 12:15 97.9 F 18 167/78 11/04/17 11:30 135/55 11/04/17 11:15 147/59 11/04/17 11:00 148/58 11/04/17 10:45 109/56 11/04/17 10:30 134/55 11/04/17 10:15 130/59 11/04/17 10:00 126/47 11/04/17 09:45 125/55 11/04/17 09:30 131/60 11/04/17 09:15 129/56 11/04/17 09:00 139/61 Intake and Output 11/04/17 11/05/17 11/05/17 23:59 07:59 15:59 Output Total 100 / 100 Balance -100 / -100 Output: Urine 100 / 100 Other: Meal ice cream Weight 109.883 kg Blood Glucose* 100 152 Patient Weight 11/05/17 23:59 Weight 109.883 kg - General Appearance General appearance: Present: well-developed, well-nourished EENT: Present: ATNC, mucous membranes moist, hearing intact, vision intact Neck: Present: supple Respiratory: Present: clear Cardiology: Present: edema, normal S1, normal S2 Gastrointestinal: Present: no tenderness, no guarding, obese Integumentary: Present: warm and dry Neurologic: Present: alert and oriented x3 Psychiatric: Present: mood/affect appropriate, cooperative - Lab 11/05/17 05:46 11/05/17 05:46 Most recent lab results Calcium 9.0 mg/dL (8.6-10.3) 11/05/17 05:46 Consult Discharge Plan - Plan Referrals: [facility] [Primary Care Provider] -
[2017-11-05] MEDS ORDERED: Insulin LISPRO 300 UNITS/3 ML VIAL SQ SCH ×2 (11:30→21:00)
[2017-11-05 12:13] VITALS: BP 144/47
--- NOTE | 2017-11-05 13:37 | Discharge Summary ---
- NOTES TO OUTPATIENT PROVIDER Notes to Outpatient Provider: Volume overload and acute CHF due to missed HD Orders not resulted at time of discharge: Pending orders 11/05/17 10:33 IR paracentesis ultrasound [IR] Routine 11/06/17 04:00 BMP [Basic Metabolic Panel] AM 0400 Complete Blood Count w/o Diff [HEME] AM 0400 11/07/17 04:00 BMP [Basic Metabolic Panel] AM 0400 Complete Blood Count w/o Diff [HEME] AM 04011/08/17 04:00 BMP [Basic Metabolic Panel] AM 0400 Complete Blood Count w/o Diff [HEME] AM 0400 11/09/17 04:00 BMP [Basic Metabolic Panel] AM 0400 Complete Blood Count w/o Diff [HEME] AM 0400 11/10/17 04:00 BMP [Basic Metabolic Panel] AM 0400 Complete Blood Count w/o Diff [HEME] AM 0400 11/11/17 04:00 BMP [Basic Metabolic Panel] AM 0400 Complete Blood Count w/o Diff [HEME] AM 0400 Date of Encounter: 11/05/17 Time of Encounter: 10:30 - Discharge Diagnosis (1) Fluid overload Priority: Primary Status: Acute Qualifiers: Hypervolemia type: unspecified Qualified Code(s): E87.70 - Fluid overload, unspecified (2) (HFpEF) heart failure with preserved ejection fraction Priority: Primary Status: Acute (3) Anemia Priority: Secondary Status: Chronic Qualifiers: Anemia type: due to chronic kidney disease Chronic kidney disease stage: on chronic dialysis Qualified Code(s): N18.6 - End stage renal disease; D63.1 - Anemia in chronic kidney disease; Z99.2 - Dependence on renal dialysis (4) Hypertension Priority: Secondary Status: Chronic Qualifiers: Hypertension type: essential hypertension Qualified Code(s): I10 - Essential (primary) hypertension (5) Cirrhosis Priority: Secondary Status: Chronic Qualifiers: Hepatic cirrhosis type: unspecified hepatic cirrhosis Ascites presence: without ascites Qualified Code(s): K74.60 - Unspecified cirrhosis of liver (6) Diabetes Priority: Secondary Status: Chronic Qualifiers: Diabetes mellitus type: type 2 Diabetes mellitus green marketing specialist insulin use: with green marketing specialist use Diabetes mellitus complication status: with kidney complications Diabetes mellitus complication detail: with chronic kidney disease Chronic kidney disease stage: on chronic dialysis Qualified Code(s) : E11.22 - Type 2 diabetes mellitus with diabetic chronic kidney disease; N18.6 - End stage renal disease; Z79.4 - intermediate (current) use of insulin; Z99.2 - Dependence on renal dialysis (7) ESRD (end stage renal disease) on dialysis Priority: Secondary Status: Chronic (8) Pleural effusion Priority: Primary Status: Acute (9) Hypothyroidism Priority: Secondary Status: Chronic Qualifiers: Hypothyroidism type: unspecified Qualified Code(s): E03.9 - Hypothyroidism , unspecified Hospital course: Mr. Betts is a 77 year old male with the above medical problems, who was admitted with shortness of breath and abdominal distention after having missed his regular hemodialysis session due to a family event. Patient was noted to be in volume overload and mild acute exacerbation of diastolic CHF. Nephrology was consulted and patient underwent hemodialysis, plan for ultrafiltration today, which he denied as he thinks he does not need any further dialysis as inpatient. He continued to complain of abdominal distention. Interventional radiology was consulted for possible paracentesis due to his history of cirrhosis, however he was noted to have trace pericardial fluid, that was not amenable to tap. Patient is currently medically stable for discharge with outpatient follow-up with dialysis. He was encouraged not to miss any further dialysis sessions. Discharge discussed with: patient, nurse, claims consultant - Time Spent with Patient Total time spent providing and/or coordinating discharge services: Greater than 30 minutes (40 min) - Discharge Medications Home Medications: Insulin ASPART [NovoLOG] 10 unit SQ TIDAC 08/03/15 [History] Lisinopril [Zestril] 20 mg PO DAILY 08/03/15 [History] Renal Vitamin [Renal Caps Softgel] 1 mg PO DAILY 08/03/15 [History] amLODIPine [Norvasc] 5 mg PO HS 08/03/15 [History] Calcium Acetate [Phos-LO] 2,001 mg PO TIDWM 08/31/15 [History] Terazosin [Hytrin] 10 mg PO HS 08/31/15 [History] Azelastine 0.1% Nasal [place] [Astelin] 2 spray NS BID PRN 09/02/16 [History] Capsaicin [Arthritis Pain Relief] 1 appl TP 5XD PRN 09/02/16 [History] Eucerin Creme 1 appl TP BID 09/02/16 [History] Insulin ASPART [NovoLOG] 5 unit SQ HS 09/02/16 [History] Latanoprost [Xalatan] 1 drop RIGHT EYE HS 02/03/17 [History] Levothyroxine Sodium [Synthroid] 137 mcg PO QAM 02/03/17 [History] Propranolol [Inderal] 10 mg PO BID 02/03/17 [History] Aspirin [Lo-Dose Aspirin EC] 81 mg PO DAILY 10/15/17 [History] Tramadol HCl [Ultram] 50 mg PO DAILY PRN 10/15/17 [History] Insulin DETEMIR [Levemir] 45 unit SQ QAM [id number] 11/05/17 [Rx] Allergies/Adverse Reactions: 3 Allergy/AdvReac Type Severity Reaction Status Date / Time venom-honey bee Allergy Severe Anaphylaxis Verified 11/03/17 16:14 [bee venom (honey bee)] felodipine AdvReac LACK OF Verified 11/03/17 16:14 THERAPY gabapentin AdvReac See Verified 11/03/17 16:14 Comments isosorbide AdvReac se Verified 11/03/17 16:14 metformin AdvReac KIDNEY Verified 11/03/17 16:14 DAMAGE metoprolol AdvReac LACK OF Verified 11/03/17 16:14 THERAPY Date of admission: 11/03/17 20:31 [facility] physician[facility] Consults: 11/04/17 06:30 Consult to Dialysis [CONS] ONCE 11/05/17 06:30 Consult to Dialysis [CONS] ONCE 11/05/17 08:30 Consult to Dialysis [CONS] ONCE 11/05/17 12:48 Consult to Interventional Radiology [CONS] Routine Consulting Provider: Radiology Interventional Cols Reason for Consult: distended abdomen, possible paracentesis Call Completed: Yes Discharging clinician: Ingrid Valdez Anticipated date of discharge: 11/05/17 - Constitutional Vitals: Temp Pulse Resp BP Pulse Ox 97.7 F 55 20 144/47 99 11/05/17 12:03 11/05/17 12:03 11/05/17 12:03 11/05/17 12:03 11/05/17 12:03 General appearance: Present: cooperative, A&O X 3, answers questions appropriately - Cardiovascular Cardiovascular exam: Present: RRR, +S1, +S2. Absent: diastolic murmur, gallop, rubs, systolic murmur - GI/Abdominal GI/Abdominal exam: Present: distended (obese), normal bowel sounds, soft, no peritoneal signs. Absent: tenderness - Patient Status Disposition: Home, Self-Care Condition: Good Functional capacity at discharge: independent ambulation Overall status at discharge: patient is progressing back to baseline - Discharge Instructions Instructions: Heart Failure (DC), Dyspnea (GEN) Follow Up With: CARMEN,PCP [Primary Care Provider] - 11/10/17 12:30 pm (Please follow up as schedule...) Additional Instructions: F/up with HD 3times/week- MWF - Diet and Activity Activity: resume usual activities as tolerated, wear oxygen at all times Diet: diabetic diet, low fat, low cholesterol, low salt diet, other (renal)
[2017-11-06] MEDS ORDERED: Insulin DETEMIR 100 UNIT/ML X5UNITS SQ SCH (09:00)
== END 2017-11-05 14:16 | disposition home or self-care (01) | DRG 291 ==
LOC: 2SOUTHHOLD 14:05 → EMEROO 14:05 → SUATTDRO 20:31 → OBSVTOIN 20:31 → 2SOUTHHOLD 21:24 → 2ANU 11-04 14:36
PROVIDERS: ADMIT Family Medicine; ATTEND Internal Medicine

== ENCOUNTER 2018-03-09 22:11 | Inpatient (IN) ==
[2018-03-10] MEDS ORDERED: Dextrose Gel 15 GM/37.5 ML TUBE PO PRN ×2 (01:59)
[2018-03-10] MEDS ORDERED: *HR* Dextrose 50 % in Water (Syg) 50 ML SYRINGE IVP PRN (01:59)
[2018-03-10] MEDS ORDERED: D5% in Water 1,000 ML IVC PRN (01:59)
[2018-03-10] MEDS ORDERED: Acetaminophen 325 MG TABLET PO PRN (01:59)
[2018-03-10] MEDS ORDERED: Naloxone 0.4 MG/ML INJ IVP PRN (01:59)
[2018-03-10] MEDS ORDERED: Levofloxacin 750 MG/150 ML 750 MG/150 ML BAG IVPB SCH (02:00)
[2018-03-10] MEDS ORDERED: traMADol 50 MG TABLET PO PRN (02:06)
--- NOTE | 2018-03-10 02:25 | Internal Med History&Physical ---
Date of Encounter: 03/10/18 Time of Encounter: 00:50 Internal Medicine - H&P: HPI Chief complaint: dyspnea Admitted From: Hospital to Hospital Transfer Plans for Post Hospital Care: Home History of present illness: Mr. Betts is a 78 year old male who presents in transfer from [facility] ER for concerns of dyspnea secondary to symptomatic right- sided pleural effusion. Patient had some moderate dyspnea and a large pleural effusion based upon CT imaging. Patient and [facility] requested transfer to [place] for further care and for their lack of intervention radiology support at [facility]. I spoke with ER staff at [facility] and accepted the patient in transfer. Upon my assessment of the patient, he is symptomatically dyspneic from his pleural effusion. However, he is on minimal oxygen support at the present time. He states he has had 2 recent thoracenteses performed at the [facility] within the last month for recurring right-sided pleural effusion. He does did not know the etiology of his pleural effusion. He is due to have another scheduled thoracentesis in 2 weeks. However, due to his dyspnea and progressive generalized edema, he could not wait that long. He therefore presented to the ER at [facility] and then transferred here. Regarding his edema, he has cirrhosis and ascites. Regarding his cirrhosis, he assumes it is secondary to excessive alcohol abuse in the past. He has been alcohol free since 1985. He was in the and drank excessively from 15 years of age until he quit drinking in 1985. He denies any GI blood loss in the form of hematemesis, melena, or hematochezia. He denies any fevers, chills, or night sweats. He denies any chest wall trauma. However, he has complained of increased abdominal girth. Along with his dyspnea, he has had a chronic nonproductive cough for the last month. He denies any ill contacts. He denies any hemoptysis. He is also on chronic dialysis on a Thursday, Thursday, Thursday schedule. He did miss his dialysis yesterday (Thursday). He has most of his healthcare performed at the [facility] and we do not have any access to the [place] records presently. Past Med Surg Social Fam HX - Past Medical History Attestation: Yes The following information was validated with the patient. Source: patient, old records reviewed, other ([facility] notes) Medical history: cancer, cirrhosis, CHF, diabetes, dialysis, hepatitis, hypertension, liver disease Additional medical history: skin CA Psychiatric history: no psych history - Past Surgical History Surgical History: appendectomy, orthopedic, other Additional surgical history: Tonsilectomy, Right rotator cuff sx - Social History Smoking Status: Former smoker Smokeless Tobacco Status: No Alcohol use: none Drug use: none Current living situation: Home, With Family Activity Level: Independent ambulation Recent Out of Country Travel Within the Last 8 Weeks: No - Family History Mother Adopted: Yes Living Status: Father Adopted: Yes Living Status: Internal Medicine - H&P: Meds Insulin ASPART [NovoLOG] 10 unit SQ TIDAC 08/03/15 [History] Lisinopril [Zestril] 20 mg PO DAILY 08/03/15 [History] Renal Vitamin [Renal Caps Softgel] 1 mg PO DAILY 08/03/15 [History] amLODIPine [Norvasc] 5 mg PO HS 08/03/15 [History] Calcium Acetate [Phos-LO] 2,001 mg PO TIDWM 08/31/15 [History] Terazosin [Hytrin] 10 mg PO HS 08/31/15 [History] Azelastine 0.1% Nasal [place] [Astelin] 2 spray NS BID PRN 09/02/16 [History] Capsaicin [Arthritis Pain Relief] 1 appl TP 5XD PRN 09/02/16 [History] Eucerin Creme 1 appl TP BID 09/02/16 [History] Insulin ASPART [NovoLOG] 5 unit SQ HS 09/02/16 [History] Latanoprost [Xalatan] 1 drop RIGHT EYE HS 02/03/17 [History] Levothyroxine Sodium [Synthroid] 137 mcg PO QAM 02/03/17 [History] Aspirin [Lo-Dose Aspirin EC] 81 mg PO DAILY 10/15/17 [History] Tramadol HCl [Ultram] 50 mg PO DAILY PRN 10/15/17 [History] Insulin DETEMIR [Levemir] 45 unit SQ QAM [id number] 11/05/17 [Rx] 3 Allergy/AdvReac Type Severity Reaction Status Date / Time venom-honey bee Allergy Severe Anaphylaxis Verified 11/03/17 16:14 [bee venom (honey bee)] felodipine AdvReac LACK OF Verified 11/03/17 16:14 THERAPY gabapentin AdvReac See Verified 11/03/17 16:14 Comments isosorbide AdvReac se Verified 11/03/17 16:14 metformin AdvReac KIDNEY Verified 11/03/17 16:14 DAMAGE metoprolol AdvReac LACK OF Verified 11/03/17 16:14 THERAPY - Constitutional Constitutional: weight gain, no chills, no fever(s), no night sweats - EENT Eyes: no blurry vision, no change in vision Ears: no ear pain, no tinnitus Nose, mouth and throat: no nasal congestion, no sore throat - Cardiovascular Cardiovascular ROS IM: dyspnea, dyspnea on exertion, orthopnea, paroxysmal nocturnal dyspnea, no chest pain - Respiratory Respiratory: cough, no hemoptysis, no chest congestion, no excessive phlegm production, no change in phlegm color, no pain with cough - Gastrointestinal Gastrointestinal: no abdominal pain, no diarrhea, no heartburn, no hematemesis, no hematochezia, no melena, no nausea, no vomiting Additional comments: increased girth - Genitourinary Genitourinary ROS male: no flank pain - Musculoskeletal Musculoskeletal ROS IM: no arthralgias, no back pain - Integumentary Integumentary IM: no rash, no jaundice - Neurological Neurological ROS: no dizziness, no focal weakness, no frequent falls, no headache(s) - Psychiatric Psychiatric: no anxiety, no depression - Endocrine Endocrine IM: no polydipsia, no polyphagia, no polyuria - Allergic/Immunologic Allergic/Immunologic: no GI upset with certain foods - Constitutional Vitals: Temp Pulse Resp BP Pulse Ox 98.2 F 75 17 181/72 96 03/10/18 00:41 03/10/18 00:41 03/10/18 00:41 03/10/18 00:41 03/10/18 00:41 General appearance: Present: cooperative, mild distress (due to dyspnea), A&O X 3, pleasant, answers questions appropriately Exam: mild to moderately dyspneic - Head Head exam: Present: normal inspection - Eye Eye exam: Present: EOMI, PERRL. Absent: scleral icterus Pupils: Present: normal accommodation - ENT ENT exam: Present: mucous membranes dry, normal exam, normal oropharynx - Neck Neck exam general surgery: Present: full ROM, supple. Absent: tenderness, nuchal rigidity, thyromegaly - Respiratory Respiratory exam: Present: decreased breath sounds (right lung about 2/3 from base to apex). Absent: chest wall tenderness, rales, rhonchi, wheezes - Cardiovascular Cardiovascular exam: Present: distant heart sounds, RRR, +S1, +S2. Absent: diastolic murmur, systolic murmur - GI/Abdominal GI/Abdominal exam: Present: distended, normal bowel sounds. Absent: guarding, rebound, tenderness Additional comments: distended abdomen with + fluid wave and ascites on clinical exam - Extremities Exam Extremities exam: Present: pedal edema (1-2+), warm, radial pulses palpable and symmetrical. Absent: calf tenderness, joint swelling, tenderness - Back Exam Back exam: Absent: CVA tenderness (L), CVA tenderness (R) - Neurological Exam Neurological exam: Present: alert, CN II-XII intact, oriented X3, no focal deficits, strengths equal and symetr throughout - Psychiatric Psychiatric exam: Present: normal affect, normal mood - Skin Skin exam: Present: dry, warm. Absent: rash Internal Med - H&P Results - Labs Labs: I reviewed his labs from [facility] and they include the following: CT chest, abdomen, pelvis reveals large partially loculated right-sided pleural effusion, right lower lobe consolidation, ascites, sigmoid diverticulosis. WBC 6.1 Hemoglobin 9.9 Hematocrit 31.4 Platelets 97 Sodium 140 Potassium 4.5 Chloride 95 Carbon Dioxide 29 BUN 55 Creatinine 6.58 Troponin 0.044 EKG suggests Atrial fibrillation with an old anteroseptal AK. - Assessment and plan (1) Pleural effusion Current Visit: Yes Status: Acute Assessment and plan: 1. Patient reports recurrent pleural effusions requiring thoracentesis; this will be his third thoracentesis in the past month. 2. Consult IR for diagnostic and therapeutic thoracentesis -- pleural fluid studies ordered. 3. Consult pulmonary given the recurrent nature of his effusions. 4. Will culture blood and start antibiotics for the remote possibility of pneumonia. 5. Oxygen as needed for support for dyspnea. (2) Atrial fibrillation Current Visit: Yes Status: Chronic Assessment and plan: 1. Currently rate controlled. 2. No anticoagulation due to cirrhosis and thrombocytopenia from liver disease. 3. Monitor on telemetry. Qualifiers: Atrial fibrillation type: chronic Qualified Code(s): I48.2 - Chronic atrial fibrillation (3) Cirrhosis Current Visit: Yes Status: Chronic Assessment and plan: 1. Patient may also need paracentesis for ascites. 2. Etiology likely due to chronic alcohol abuse in the -- alcohol free since 1985. 3. No reports of recent GI bleed. 4. May need GI consult while in hospital. Qualifiers: Hepatic cirrhosis type: alcoholic cirrhosis Ascites presence: with ascites Qualified Code(s): K70.31 - Alcoholic cirrhosis of liver with ascites (4) ESRD (end stage renal disease) on dialysis Current Visit: Yes Status: Chronic Assessment and plan: 1. Consult nephrology for dialysis needs. 2. Will check electrolytes and monitor renal function. (5) IDDM (insulin dependent diabetes mellitus) Current Visit: Yes Status: Chronic Assessment and plan: 1. Will place on SSI and monitor glucose closely. (6) DVT prophylaxis Current Visit: Yes Status: Acute Assessment and plan: 1. Heparin SQ.
[2018-03-10 03:16] LABS: Mean Corpuscular Volume 101.9 fL (83.0-100.0)
[2018-03-10 03:18] LABS: Basophils % 0.4 %; Eosinophils # 0.3 K/mcL (0.0-0.6); Eosinophils % 4.7 %; Hemoglobin 10.4 g/dL (12.9-16.9); Immature Granulocytes % 0.6 % (0-4); Immature Platelets 3.7 % (1.1-6.1); Lymphocytes # 0.5 K/mcL (0.6-4.6); Lymphocytes % 7.1 %; Mean Corpuscular HGB Conc 31.5 g/dL (31.6-35.5); Mean Corpuscular Hemoglobin 32.1 pg (28.0-33.3); Mean Platelet Volume 10.4 fL (9.4-12.4); Monocytes # 0.4 K/mcL (0.0-1.3); Monocytes % 6.4 %; Neutrophils # 5.5 K/mcL (1.6-8.9); Red Blood Count 3.24 M/mcL (4.19-5.50); Red Cell Distribution Width 13.8 % (11.5-14.5); Segmented Neutrophils % 80.8 %
[2018-03-10 03:22] LABS: INR 1.2
[2018-03-10 03:23] LABS: Platelet Count 95 K/mcL (140-400)
[2018-03-10 03:25] LABS: Activated Partial Thrombo Time 28.7 Seconds (26.0-36.0)
[2018-03-10 03:36] LABS: Albumin 3.1 g/dL (3.5-5.7); Albumin/Globulin Ratio 1.1 (1.1-2.2); Bilirubin,Total 0.2 mg/dL (0.3-1.0); Calcium 8.6 mg/dL (8.6-10.3); Globulin 2.9 g/dL (2.4-3.5); Magnesium 1.8 mg/dL (1.6-2.6); Potassium 4.5 mEq/L (3.5-5.1)
[2018-03-10] MEDS: *HR* Heparin 5,000 UNIT/ML VIAL SQ SCH ×3 (06:27→22:52)
[2018-03-10] MEDS ORDERED: 0.9 % Sodium Chloride 250 ML IVC PRN (07:31)
[2018-03-10 07:36] LABS: Hepatitis B Surface Antibody 1.32 mIU/mL; Hepatitis B Surface Antigen Nonreactive (Nonreactive)
[2018-03-10] MEDS ORDERED: 0.9 % Sodium Chloride 1,000 ML PRIME SCH (07:45)
[2018-03-10] MEDS: Calcium Acetate 667 MG CAPSULE PO SCH ×3 (08:03→17:37)
[2018-03-10] MEDS: Insulin LISPRO 300 UNITS/3 ML VIAL SQ SCH ×4 (08:03→21:21)
[2018-03-10] MEDS: Renal Vitamin 1 CAP CAPSULE PO SCH (08:03)
[2018-03-10] MEDS: Aspirin Enteric Coated 81 MG Tablet PO SCH (08:03)
[2018-03-10] MEDS ORDERED: 0.9 % Sodium Chloride 2,000 ML ONE (08:07)
--- NOTE | 2018-03-10 08:46 | Pulmonology Consult Note ---
Date of Encounter: 03/10/18 Past Med Surg Social Fam HX - Past Medical History Medical history: cancer, cirrhosis, CHF, diabetes, dialysis, hepatitis, hypertension, liver disease Additional medical history: skin CA Psychiatric history: no psych history - Past Surgical History Surgical History: appendectomy, orthopedic, other Additional surgical history: Tonsilectomy, Right rotator cuff sx - Social History Smoking Status: Former smoker Smokeless Tobacco Status: No Alcohol use: none Drug use: none - Family History Mother Adopted: Yes Living Status: Father Adopted: Yes Living Status: Medications and Allergies Insulin ASPART [NovoLOG] 10 unit SQ TIDAC 08/03/15 [History] Lisinopril [Zestril] 20 mg PO DAILY 08/03/15 [History] Renal Vitamin [Renal Caps Softgel] 1 mg PO DAILY 08/03/15 [History] amLODIPine [Norvasc] 5 mg PO HS 08/03/15 [History] Calcium Acetate [Phos-LO] 2,001 mg PO TIDWM 08/31/15 [History] Terazosin [Hytrin] 10 mg PO HS 08/31/15 [History] Azelastine 0.1% Nasal [place] [Astelin] 2 spray NS BID PRN 09/02/16 [History] Capsaicin [Arthritis Pain Relief] 1 appl TP 5XD PRN 09/02/16 [History] Eucerin Creme 1 appl TP BID 09/02/16 [History] Insulin ASPART [NovoLOG] 5 unit SQ HS 09/02/16 [History] Latanoprost [Xalatan] 1 drop RIGHT EYE HS 02/03/17 [History] Levothyroxine Sodium [Synthroid] 137 mcg PO QAM 02/03/17 [History] Aspirin [Lo-Dose Aspirin EC] 81 mg PO DAILY 10/15/17 [History] Tramadol HCl [Ultram] 50 mg PO DAILY PRN 10/15/17 [History] Insulin DETEMIR [Levemir] 45 unit SQ QAM [id number] 11/05/17 [Rx] 3 Allergy/AdvReac Type Severity Reaction Status Date / Time venom-honey bee Allergy Severe Anaphylaxis Verified 11/03/17 16:14 [bee venom (honey bee)] felodipine AdvReac LACK OF Verified 11/03/17 16:14 THERAPY gabapentin AdvReac See Verified 11/03/17 16:14 Comments isosorbide AdvReac se Verified 11/03/17 16:14 metformin AdvReac KIDNEY Verified 11/03/17 16:14 DAMAGE metoprolol AdvReac LACK OF Verified 11/03/17 16:14 THERAPY All Systems: The remainder of the systems were reviewed and are negative Physical Examination Vital Signs: Vital Signs, Last 4 Hours Temp Pulse Resp BP Pulse Ox 03/10/18 07:05 98.4 F 75 18 150/82 90 Results - Laboratory Findings CBC and BMP: 03/10/18 03:06 03/10/18 03:06 PT/INR, D-dimer PT 13.0 Seconds (9.4-12.1) H 03/10/18 03:06 Abnormal lab findings: Abnormal lab results RBC 3.24 M/mcL (4.19-5.50) L 03/10/18 03:06 Hgb 10.4 g/dL (12.9-16.9) L 03/10/18 03:06 Hct 33.0 % (37.5-50.1) L 03/10/18 03:06 MCV 101.9 fL (83.0-100.0) H 03/10/18 03:06 MCHC 31.5 g/dL (31.6-35.5) L 03/10/18 03:06 Plt Count 95 K/mcL (140-400) L 03/10/18 03:06 Lymphocytes # 0.5 K/mcL (0.6-4.6) L 03/10/18 03:06 PT 13.0 Seconds (9.4-12.1) H 03/10/18 03:06 BUN 64 mg/dL (8-23) H 03/10/18 03:06 Creatinine 6.71 mg/dL (0.70-1.30) H 03/10/18 03:06 Est GFR ( Amer) 10 (> 60) L 03/10/18 03:06 Est GFR (Non-Af Amer) 8 (> 60) L 03/10/18 03:06 Glucose 125 mg/dL (70-105) H 03/10/18 03:06 POC Glucose 118 mg/dL (70-99) H 03/10/18 03:20 Calculated Osmolality 312 (280-300) H 03/10/18 03:06 Total Bilirubin 0.2 mg/dL (0.3-1.0) L 03/10/18 03:06 Serum Total Protein 6.0 g/dL (6.4-8.9) L 03/10/18 03:06 Albumin 3.1 g/dL (3.5-5.7) L 03/10/18 03:06 - Microbiology Findings Microbiology Findings: Microbiology, Last 48 Hours 03/10/18 03:06 Blood Culture - Preliminary Peripheral Venipuncture Culture is incubating and being continuously monitored for growth. Final report to follow. 03/10/18 03:06 Blood Culture - Preliminary Peripheral Venipuncture Culture is incubating and being continuously monitored for growth. Final report to follow. - Clinical Findings Intake & Output: Intake & Output 03/09/18 03/10/18 03/10/18 23:59 07:59 15:59 Intake Total 150 / 150 Balance 150 / 150 Weight 112.094 kg Consult Discharge Plan - Plan [facility]errals: [facility] [Primary Care Provider[facility] -
--- NOTE | 2018-03-10 10:12 | Nephrology Consult Note ---
Date of Encounter: 03/10/18 Time of Encounter: 10:02 Assessment and Plan (1) ESRD (end stage renal disease) on dialysis Current Visit: Yes Status: Chronic Current regimen is MWF in [place] with Dr. Noriega. HD in progress for today. Avoid nephrotoxins and renal dose. Will order additional UF or HD as needed. (2) Pleural effusion Current Visit: Yes Status: Acute Per pulm. (3) Cirrhosis Current Visit: Yes Status: Chronic HX or per primary Qualifiers: Hepatic cirrhosis type: alcoholic cirrhosis Ascites presence: with ascites Qualified Code(s): K70.31 - Alcoholic cirrhosis of liver with ascites (4) IDDM (insulin dependent diabetes mellitus) Current Visit: Yes Status: Chronic Per primary. History of Present Illness - Reason for Consult Consult date: 03/10/18 end stage renal disease Requesting physician: Kvng Seth - Chief Complaint right sided pleural effusion - History of Present Illness Mr. Betts is a 78 year old male who was transferred from [facility] with dyspnea secondary to right-sided pleural effusion. PMH: cancer, cirrhosis , CHF, diabetes, dialysis, hepatitis, hypertension, liver disease. ESRD MWF in [place] with Dr. Noriega. He did miss treatment Thursday, but did have treatment on Thursday without complication. In the primary team's note it appears he was transferred for dyspnea however the patient tells me he had a recent flare up of diverticulitis and was having melena at home. Unsure if patient is confused or if he is having symptoms of the above. Pulm has been consulted for right sided pleural effusion. Denies FH or HD or CKD. Denies any changes in PMH recently. Pt admits he drank from the age of 15-1995, but has not drank since. Denies ETOH or illicit drug use. Past Med Surg Social Fam HX - Past Medical History Medical history: cancer, cirrhosis, CHF, diabetes, dialysis, hepatitis, hypertension, liver disease Additional medical history: skin CA Psychiatric history: no psych history - Past Surgical History Surgical History: appendectomy, orthopedic, other Additional surgical history: Tonsilectomy, Right rotator cuff sx - Social History Smoking Status: Former smoker Smokeless Tobacco Status: No Alcohol use: none Drug use: none - Family History Mother Adopted: Yes Living Status: Father Adopted: Yes Living Status: Medications and Allergies Insulin ASPART [NovoLOG] 10 unit SQ TIDAC 08/03/15 [History] Lisinopril [Zestril] 20 mg PO DAILY 08/03/15 [History] Renal Vitamin [Renal Caps Softgel] 1 mg PO DAILY 08/03/15 [History] amLODIPine [Norvasc] 5 mg PO HS 08/03/15 [History] Calcium Acetate [Phos-LO] 2,001 mg PO TIDWM 08/31/15 [History] Terazosin [Hytrin] 10 mg PO HS 08/31/15 [History] Azelastine 0.1% Nasal [place] [Astelin] 2 spray NS BID PRN 09/02/16 [History] Capsaicin [Arthritis Pain Relief] 1 appl TP 5XD PRN 09/02/16 [History] Eucerin Creme 1 appl TP BID 09/02/16 [History] Insulin ASPART [NovoLOG] 5 unit SQ HS 09/02/16 [History] Latanoprost [Xalatan] 1 drop RIGHT EYE HS 02/03/17 [History] Levothyroxine Sodium [Synthroid] 137 mcg PO QAM 02/03/17 [History] Aspirin [Lo-Dose Aspirin EC] 81 mg PO DAILY 10/15/17 [History] Tramadol HCl [Ultram] 50 mg PO DAILY PRN 10/15/17 [History] Insulin DETEMIR [Levemir] 45 unit SQ QAM [id number] 11/05/17 [Rx] 3 Allergy/AdvReac Type Severity Reaction Status Date / Time venom-honey bee Allergy Severe Anaphylaxis Verified 11/03/17 16:14 [bee venom (honey bee)] felodipine AdvReac LACK OF Verified 11/03/17 16:14 THERAPY gabapentin AdvReac See Verified 11/03/17 16:14 Comments isosorbide AdvReac se Verified 11/03/17 16:14 metformin AdvReac KIDNEY Verified 11/03/17 16:14 DAMAGE metoprolol AdvReac LACK OF Verified 11/03/17 16:14 THERAPY Review of Systems All Systems review (narrative): The remainder of the systems are negative. Constitutional: no chills, no fatigue, no fever(s) Cardiovascular: dyspnea, dyspnea on exertion, no chest pain, no palpitations Respiratory: cough, dyspnea, no wheezing Gastrointestinal: diarrhea, melena, no nausea, no vomiting Exam - Vital Signs Vital signs: Initial Vital Signs Temp Pulse Resp BP Pulse Ox 98.2 F 75 17 181/72 96 03/10/18 00:41 03/10/18 00:41 03/10/18 00:41 03/10/18 00:41 03/10/18 00:41 Vital Signs - Last 8 Hours Temp Pulse Resp BP Pulse Ox 03/10/18 07:05 98.4 F 75 18 150/82 90 03/10/18 03:27 98.2 F 86 17 172/71 93 Intake and Output 03/09/18 03/10/18 03/10/18 23:59 07:59 15:59 Intake Total 150 / 150 120 / 120 Balance 150 / 150 120 / 120 Intake: IV Fluids 150 / 150 Levaquin Premix 750mg/150 mL 150 / 150 750 mg In 150 ml @ 100 mls/hr IVPB Q48H NHAN Rx#:[id number] Oral 120 / 120 Other: Meal Breakfast Percent of Meal Consumed 90% Weight 112.094 kg Blood Glucose* 138 Patient Weight 03/10/18 23:59 Weight 112.094 kg - General Appearance General appearance: well-developed, well-nourished EENT: ATNC, hearing intact, vision intact Neck: supple Cardiology: no edema, normal S1, normal S2 - Dialysis Access Dialysis Vascular Access: Arteriovenous Fistula thrill: Yes bruit: Yes Gastrointestinal: normoactive bowel sounds, no tenderness, no guarding Integumentary: no rash, warm and dry Neurologic: alert and oriented x3 Psychiatric: mood/affect appropriate, cooperative Results - Lab Results 03/10/18 03:06 03/10/18 03:06 Most recent lab results Calcium 8.6 mg/dL (8.6-10.3) 03/10/18 03:06 Magnesium 1.8 mg/dL (1.6-2.6) 03/10/18 03:06 Consult Discharge Plan - Plan [facility]errals: [facility]Primary Care Provider] -
--- NOTE | 2018-03-10 10:22 | Internal Med Progress Note ---
Hospitalist Progress Note - Encounter Date of Encounter: 03/10/18 Time of Encounter: 10:22 - Subjective Interval History: Seen during HD 78 M admitted and being managed for fluid overload including new loculated R pleural effusion , R LL consolidation , ascites, He has a PMH of CHFpEF, Cirrhosis, ESRD on HD MWF, DM, Afib, HTN, Hypothyroidism , Anemia His main complain is SOB,he denies cough with sputum, fever or chills, He is pending eval by Pulm, IR he is currently hemodynamicaly stable - Exam Vitals: Temp Pulse Resp BP Pulse Ox 98.4 F 75 18 150/82 90 03/10/18 07:05 03/10/18 07:05 03/10/18 07:05 03/10/18 07:05 03/10/18 07:05 Exam: GEN:Not in distress, co-operative Head: atraumatic, normocephalic, Eye: normal appearance, PERRL, no scleral icterus, no conjunctival injection ENT: mucous membranes moist, normal external ear exam Neck: normal inspection Respiratory: Diminished air entry bilaterally, R>L, bibasilar crackles Cardiovascular: S1, S2, RRR , no m/g/r Abdomen: soft, distended, no guarding or rebound, fluid thrill+ Extremities: 1+ piting pedal edema bilaterally Skin: no rash AVF functioning Neuro: Alert and oriented x3 , No gross focal deficits Psych: Patient's affect is normal - Assessment and Plan (1) DVT prophylaxis Current Visit: Yes Status: Acute Assessment and Plan: Heparin SQ (2) Cirrhosis Current Visit: Yes Status: Chronic Assessment and Plan: Hx of alcohol abuse and Hep C Decompensated with ascites IR for paracentensis No suspicion for SBP (3) Atrial fibrillation Current Visit: Yes Status: Chronic Assessment and Plan: HR controlled, not on A/C due to thrombocytopenia Not on BB nor CCB Continue to monitor on tele (4) ESRD (end stage renal disease) on dialysis Current Visit: Yes Status: Chronic Assessment and Plan: On HD, Missed HD on Thursday, now on HD MWF Renal team following (5) Pleural effusion Current Visit: Yes Status: Acute Assessment and Plan: Patient reports recurrent pleural effusions requiring thoracentesis; this will be his third thoracentesis in the past month. He is currently symptomatic with SOB, though he is not hypoxic (likely due to chronicity of effusuion) He has no symptoms of PNA, however, Chest imaging from outside facility reports consolidation Pulm eval for thoracentensis Consider Pleurex as out-patient Follow pleural fluid work up and cultures Continue antibiotics (6) IDDM (insulin dependent diabetes mellitus) Current Visit: Yes Status: Chronic Assessment and Plan: FS ACHS ADA diet SSI (7) Anemia Current Visit: Yes Status: Chronic Assessment and Plan: HB stable at baseline, continue to monitor (8) Diverticulosis Current Visit: No Status: Chronic (9) Hypertension Current Visit: Yes Status: Chronic (10) Hypothyroidism Current Visit: Yes Status: Chronic Assessment and Plan: continue synthroid Check TSH with a.m labs (11) JOSÉ MANUEL (obstructive sleep apnea) Current Visit: Yes Status: Chronic Assessment and Plan: CPAP at bedtime (12) Thrombocytopenia Current Visit: Yes Status: Chronic Assessment and Plan: chronic, stable (13) (HFpEF) heart failure with preserved ejection fraction Current Visit: Yes Status: Chronic Assessment and Plan: Chronic, currently in fluid overload Continue HD - Time Spent with Patient Total time spent is greater than 50% in coordination of care (as documented) at patient's floor/unit and/or counseling patient: Plan of Care Discussed with: patient Internal Medicine: Result - Labs CBC & Chem 7: 03/10/18 03:06 03/10/18 03:06 Labs: Short CBC 03/10/18 Range/Units 03:06 WBC 6.8 (4.3-11.1) K/mcL Hgb 10.4 L (12.9-16.9) g/dL Hct 33.0 L (37.5-50.1) % Plt Count 95 L (140-400) K/mcL Neutrophils # 5.5 (1.6-8.9) K/mcL BMP 03/10/18 03:06 Sodium 141 Potassium 4.5 Chloride 102 Carbon Dioxide 27 BUN 64 H Creatinine 6.71 H Glucose 125 H Calcium 8.6 Liver Function 03/10/18 Range/Units 03:06 Total Bilirubin 0.2 L (0.3-1.0) mg/dL AST 27 (13-39) Units/L ALT 29 (7-52) Units/L Alkaline Phosphatase 93 (34-104) Units/L Albumin 3.1 L (3.5-5.7) g/dL - ABG Interpretation ABG results: PT/INR, D-dimer PT 13.0 Seconds (9.4-12.1) H 03/10/18 03:06 Consult Discharge Plan - Plan [facility]errals: [facility] [Primary Care Provider] - (2) Cirrhosis Qualifiers: Hepatic cirrhosis type: alcoholic cirrhosis Ascites presence: with ascites Qualified Code(s): K70.31 - Alcoholic cirrhosis of liver with ascites (3) Atrial fibrillation Qualifiers: Atrial fibrillation type: chronic Qualified Code(s): I48.2 - Chronic atrial fibrillation (7) Anemia Qualifiers: Anemia type: due to chronic kidney disease Chronic kidney disease stage: on chronic dialysis Qualified Code(s): N18.6 - End stage renal disease; D63.1 - Anemia in chronic kidney disease; Z99.2 - Dependence on renal dialysis (8) Diverticulosis Qualifiers: Diverticulosis site: diverticulosis of large intestine (9) Hypertension Qualifiers: Hypertension type: essential hypertension Qualified Code(s): I10 - Essential (primary) hypertension (10) Hypothyroidism Qualifiers: Hypothyroidism type: unspecified Qualified Code(s): E03.9 - Hypothyroidism, unspecified
--- NOTE | 2018-03-10 11:28 | Pulmonology Consult Note ---
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 -patient is s/p right sided thoracentesis this p.m. pleural studies pending. (2) Cirrhosis of liver Current Visit: No Status: Chronic -MELDscore. 22 Does not take lactulose or rifaximin at home. -on physical exam he has distended abdomen significant for ascites. Patient is status post paracentesis, no evidence for spontaneous bacterial peritonitis. -Recommended Liver Doopler US to monitor the portal pressure. Qualifiers: Hepatic cirrhosis type: unspecified hepatic cirrhosis Ascites presence: without ascites Qualified Code(s): K74.60 - Unspecified cirrhosis of liver (3) Dyspnea Current Visit: No Status: Acute -Likely due to his right-sided pleural effusion. Patient had an echo in September 2017 was suggested indeterminate diastolic function with severe dilated left atrium, mildly dilated right ventricle , with concerns for pulmonary hypertension. -s/p Right sided thoracentesis this p.m. draine 1600 mL of sero-sangunous fluid Qualifiers: Dyspnea type: dyspnea on exertion Qualified Code(s): R06.09 - Other forms of dyspnea (4) Ascites Current Visit: No Status: Acute -Likely due to his history of cirrhosis. This is secondary to his history of hep C and alcohol abuse 13 years. quit 30 years ago. - s/p paracentesis , drained 250 mL fluid Qualifiers: Qualified Code(s): K70.31 - Alcoholic cirrhosis of liver with ascites (5) ESRD (end stage renal disease) Current Visit: No Status: Chronic -History of end-stage renal disease. -Underwent dialysis this am. Cr 6.71 History of Present Illness Consult date: 03/10/18 Chief complaint: pleral effusion History of present illness: Mr. Betts is a 78-year-old male with a past medical history of cirrhosis, end-stage renal disease (dialysis MWF), current pleural effusion (2 recent thoracentesis performed the [facility] about a month ago), who was put on pulmonology consult because of a new pleural effusion. Patient endorses that he was scheduled to get another thoracentesis in 2 weeks from now. Patient was diagnosed with cirrhosis almost 15 years ago has an extensive history of alcoholism which he said he quit in 1985. He said his back almost 14 years. She also is to be an active smoker and he quit over 30 years ago. He is also had significant exposure to asbestos. He was seen by Dr. Carpio in September of this year for dyspnea secondary to pleural effusion. Back then thoracentesis was not recommended because patient was not dramatic. He also had fluid overload which was secondary to his end- stage renal disease and cirrhosis. Patient has a history of hepatitis C but is not treated his MELD score is 22. Past Med Surg Social Fam HX - Past Medical History Medical history: cancer, cirrhosis, CHF, diabetes, dialysis, hepatitis, hypertension, liver disease Additional medical history: skin CA Psychiatric history: no psych history - Past Surgical History Surgical History: appendectomy, orthopedic, other Additional surgical history: Tonsilectomy, Right rotator cuff sx - Social History Smoking Status: Former smoker Smokeless Tobacco Status: No Alcohol use: none Drug use: none - Family History Mother Adopted: Yes Living Status: Father Adopted: Yes Living Status: Medications and Allergies Insulin ASPART [NovoLOG] 10 unit SQ TIDAC 08/03/15 [History] Lisinopril [Zestril] 20 mg PO DAILY 08/03/15 [History] Renal Vitamin [Renal Caps Softgel] 1 mg PO DAILY 08/03/15 [History] amLODIPine [Norvasc] 5 mg PO HS 08/03/15 [History] Terazosin [Hytrin] 10 mg PO HS 08/31/15 [History] Insulin ASPART [NovoLOG] 5 unit SQ HS 09/02/16 [History] Latanoprost [Xalatan] 1 drop RIGHT EYE HS 02/03/17 [History] Levothyroxine Sodium [Synthroid] 137 mcg PO QAM 02/03/17 [History] Aspirin [Lo-Dose Aspirin EC] 81 mg PO DAILY 10/15/17 [History] Tramadol HCl [Ultram] 50 mg PO DAILY PRN 10/15/17 [History] Calcitriol 0.5 mcg PO MOWEFR 03/10/18 [History] Cinacalcet [Sensipar] 30 mg PO MOWEFR 03/10/18 [History] Fluorouracil [Fluoroplex] 1 appl TP BID 03/10/18 [History] Insulin Glargine [Lantus] 40 unit SQ HS 03/10/18 [History] 3 Allergy/AdvReac Type Severity Reaction Status Date / Time venom-honey bee Allergy Severe Anaphylaxis Verified 11/03/17 16:14 [bee venom (honey bee)] felodipine AdvReac LACK OF Verified 11/03/17 16:14 THERAPY gabapentin AdvReac See Verified 11/03/17 16:14 Comments isosorbide AdvReac se Verified 11/03/17 16:14 metformin AdvReac KIDNEY Verified 11/03/17 16:14 DAMAGE metoprolol AdvReac LACK OF Verified 11/03/17 16:14 THERAPY All Systems: The remainder of the systems were reviewed and are negative Physical Examination Vital Signs: Vital Signs, Last 4 Hours Temp Resp BP 03/10/18 11:20 161/73 03/10/18 11:05 156/66 03/10/18 10:50 160/72 03/10/18 10:35 158/73 03/10/18 10:20 150/78 03/10/18 10:05 150/74 03/10/18 09:50 160/87 03/10/18 09:35 147/81 03/10/18 09:20 166/72 03/10/18 09:05 129/79 03/10/18 08:50 98.2 F 20 151/72 General appearance: no acute distress Effort: mildly labored Auscultation: right: diminished breath sounds Cardiovascular: regular rate and rhythm Gastrointestinal: non-tender (distended s/p paracentesis) Extremities: no cyanosis, no clubbing, edema (+1) Results - Laboratory Findings CBC and BMP: 03/10/18 03:06 03/10/18 03:06 PT/INR, D-dimer PT 13.0 Seconds (9.4-12.1) H 03/10/18 03:06 Abnormal lab findings: Abnormal lab results RBC 3.24 M/mcL (4.19-5.50) L 03/10/18 03:06 Hgb 10.4 g/dL (12.9-16.9) L 03/10/18 03:06 Hct 33.0 % (37.5-50.1) L 03/10/18 03:06 MCV 101.9 fL (83.0-100.0) H 03/10/18 03:06 MCHC 31.5 g/dL (31.6-35.5) L 03/10/18 03:06 Plt Count 95 K/mcL (140-400) L 03/10/18 03:06 Lymphocytes # 0.5 K/mcL (0.6-4.6) L 03/10/18 03:06 PT 13.0 Seconds (9.4-12.1) H 03/10/18 03:06 BUN 64 mg/dL (8-23) H 03/10/18 03:06 Creatinine 6.71 mg/dL (0.70-1.30) H 03/10/18 03:06 Est GFR ( Amer) 10 (> 60) L 03/10/18 03:06 Est GFR (Non-Af Amer) 8 (> 60) L 03/10/18 03:06 Glucose 125 mg/dL (70-105) H 03/10/18 03:06 POC Glucose 118 mg/dL (70-99) H 03/10/18 03:20 Calculated Osmolality 312 (280-300) H 03/10/18 03:06 Total Bilirubin 0.2 mg/dL (0.3-1.0) L 03/10/18 03:06 Serum Total Protein 6.0 g/dL (6.4-8.9) L 03/10/18 03:06 Albumin 3.1 g/dL (3.5-5.7) L 03/10/18 03:06 - Microbiology Findings Microbiology Findings: Microbiology, Last 48 Hours 03/10/18 03:06 Blood Culture - Preliminary Peripheral Venipuncture Culture is incubating and being continuously monitored for growth. Final report to follow. 03/10/18 03:06 Blood Culture - Preliminary Peripheral Venipuncture Culture is incubating and being continuously monitored for growth. Final report to follow. - Clinical Findings Intake & Output: Intake & Output 03/09/18 03/10/18 03/10/18 23:59 07:59 15:59 Intake Total 150 / 150 720 / 720 Balance 150 / 150 720 / 720 Weight 112.094 kg Consult Discharge Plan - Plan [facility]errals: [facility] [Primary Care Provider] - <Kimberli Najera S - Last Filed: 03/10/18 20:48> Date of Encounter: 03/10/18 All Systems: The remainder of the systems were reviewed and are negative Physical Examination Vital Signs: Vital Signs, Last 4 Hours Temp Pulse Resp BP Pulse Ox 03/10/18 18:48 98.6 F 73 16 161/68 93 Results - Laboratory Findings CBC and BMP: 03/10/18 03:06 03/10/18 03:06 PT/INR, D-dimer PT 13.0 Seconds (9.4-12.1) H 03/10/18 03:06 Abnormal lab findings: Abnormal lab results RBC 3.24 M/mcL (4.19-5.50) L 03/10/18 03:06 Hgb 10.4 g/dL (12.9-16.9) L 03/10/18 03:06 Hct 33.0 % (37.5-50.1) L 03/10/18 03:06 MCV 101.9 fL (83.0-100.0) H 03/10/18 03:06 MCHC 31.5 g/dL (31.6-35.5) L 03/10/18 03:06 Plt Count 95 K/mcL (140-400) L 03/10/18 03:06 Lymphocytes # 0.5 K/mcL (0.6-4.6) L 03/10/18 03:06 PT 13.0 Seconds (9.4-12.1) H 03/10/18 03:06 BUN 64 mg/dL (8-23) H 03/10/18 03:06 Creatinine 6.71 mg/dL (0.70-1.30) H 03/10/18 03:06 Est GFR ( Amer) 10 (> 60) L 03/10/18 03:06 Est GFR (Non-Af Amer) 8 (> 60) L 03/10/18 03:06 Glucose 125 mg/dL (70-105) H 03/10/18 03:06 POC Glucose 156 mg/dL (70-99) H 03/10/18 17:11 Calculated Osmolality 312 (280-300) H 03/10/18 03:06 Total Bilirubin 0.2 mg/dL (0.3-1.0) L 03/10/18 03:06 Lactate Dehydrogenase 135 Units/L (140-271) L 03/10/18 17:27 Serum Total Protein 6.0 g/dL (6.4-8.9) L 03/10/18 03:06 Albumin 3.2 g/dL (3.5-5.7) L 03/10/18 15:21 Pleural Appearance Cloudy (Clear) A 03/10/18 18:11 Pleural RBC 0.012 M/mcL (0.000-0.002) H 03/10/18 18:11 - Microbiology Findings Microbiology Findings: Microbiology, Last 48 Hours 03/10/18 03:06 Blood Culture - Preliminary Peripheral Venipuncture Culture is incubating and being continuously monitored for growth. Final report to follow. 03/10/18 03:06 Blood Culture - Preliminary Peripheral Venipuncture Culture is incubating and being continuously monitored for growth. Final report to follow. - Clinical Findings Intake & Output: Intake & Output 03/10/18 03/10/18 03/10/18 07:59 15:59 23:59 Intake Total 150 / 150 720 / 720 Output Total 3600 / 3600 300 / 300 Balance 150 / 150 -2880 / -2880 -300 / -300 Weight 112.094 kg - Attending Attestation I saw and evaluated this patient and my medical decision-making was reviewed with the Resident Physician. I agree with the documented findings, disposition and treatment plan as described except to the extent set forth below. We independently had [id number] contact with the patient Patient seen and examined at bedside Labs, radiology, chart personally reviewed. Pulmonary was consulted for evaluation of recurrent pressure pleural effusion most likely secondary due to hepatic hydrothorax complicated by diastolic heart failure pleural fluid studies are pending ,ascitic fluid more consistent with transudate. Patient recurrent pleural effusion can be managed by Pleurx catheter since patient is thrombocytopenic in the background of uremia patient might have some bleeding complications and also they have high chance of infection.Will need to discuss with nephrology to keep him more negative so we can increase the duration of repeat thoracentesis , patient wont be ideal candidate for TIPS procedure as he has increased PA pressure which falls in the category of moderate pulmonary HTN ,patient MELD is 22 with diastolic heart failure with pulmonary HTN patient has poor prognosis .
[2018-03-10] MEDS: Lisinopril 20 MG TABLET PO SCH (12:34)
--- NOTE | 2018-03-10 13:52 | IR Procedure Note ---
Date of procedure: 03/10/18 Consent Obtained: Written consent Timeout: Correct patient and procedure verified, Correct site verified, Time out performed, Skin prep completed Local anesthetic: Lidocaine 1% Indications: Ascites Procedure Performed: Paracentesis Was there an special events assistant present: No Site/Technique: Minimal fluid seen. LLQ accessed. 8fr cath used. Results/Findings: Still was draining. Full dictation to follow. Estimated blood loss (cc): 1 Complications: None; Tolerated procedure well Post Procedure Treatment Plan: Monitoring in pts room Specimen: to lab
[2018-03-10 15:31] LABS: Amylase,Peritoneal Fluid 10 Units/L (No Ref Range); Glucose,Peritoneal Fluid 122 mg/dL (No Ref Range); LDH,Peritoneal Fluid 63 Units/L (No Ref Range); Total Protein,Peritoneal Fluid < 3.0 g/dL (No Ref Range)
[2018-03-10 15:52] LABS: RBC,Peritoneal Fluid < 0.002 M/mcL
--- NOTE | 2018-03-10 17:22 | Procedure Note ---
<Stew Jerez - Last Filed: 03/10/18 17:24> Date of procedure: 03/10/18 Pre-op diagnosis: pleural effusin Post-op diagnosis: same Procedure: Informed consent was obtained from the patient. Time out performed. Area of pleural effusion was identified by ultrasound and site was marked. Area over right back was prepped and draped in normal sterile technique, and anesthetized using 3cc of lidocaine. A 20 guage needle/catheter was advanced into the pleural space and serosanguineous fluid was seen in the syringe. Approximately 1600cc of fluid was drained. Pt tolerated the procedure well, EBL was none. Post procedure CXR pending. . Specimen was sent to lab. Anesthesia: local Surgeon: Stew Jerez Was there an assistant paralegal present: Yes Transportation Associate: Kimberli Najera Estimated blood loss (cc): 3 Specimen: pleural fluid <Kimberli Najera - Last Filed: 03/10/18 20:07> Procedure: I was present during the entire procedure assisted the resident physician in critical portions of the procedure
[2018-03-10 17:40] LABS: Appearance of Peritoneal Fl HAZY (Clear)
[2018-03-10 19:44] LABS: Appearance of Pleural Fl Cloudy (Clear)
[2018-03-10 19:53] LABS: RBC,Pleural Fluid 0.012 M/mcL
[2018-03-10 20:29] LABS: Amylase,Pleural Fluid 16 Units/L (No Ref Range); Glucose,Pleural Fluid 133 mg/dL (No Ref Range); LDH,Pleural Fluid 116 Units/L (No Ref Range); Total Protein,Pleural Fluid < 3.0 g/dL (No Ref Range)
[2018-03-10] MEDS: amLODIPine 5 MG TABLET PO SCH (21:07)
[2018-03-10] MEDS: Latanoprost 2.5 ML BOTTLE RIGHT EYE SCH (22:43)
[2018-03-11] MEDS ORDERED: Calcium Acetate 667 MG CAPSULE PO ONE (11:20)
[2018-03-11] MEDS ORDERED: Lisinopril 20 MG TABLET PO ONE (11:20)
[2018-03-11] MEDS ORDERED: Aspirin Enteric Coated 81 MG Tablet PO ONE (11:20)
[2018-03-11] MEDS ORDERED: Renal Vitamin 1 CAP CAPSULE PO ONE (11:20)
[2018-03-11 11:41] LABS: Basophils % 0.4 %; Eosinophils # 0.2 K/mcL (0.0-0.6); Eosinophils % 4.5 %; Hemoglobin 9.8 g/dL (12.9-16.9); Immature Platelets 4.2 % (1.1-6.1); Lymphocytes # 0.6 K/mcL (0.6-4.6); Lymphocytes % 11.8 %; Mean Corpuscular Hemoglobin 37.5 pg (28.0-33.3); Mean Corpuscular Volume 107.3 fL (83.0-100.0); Mean Platelet Volume 12.2 fL (9.4-12.4); Monocytes # 0.4 K/mcL (0.0-1.3); Monocytes % 7.3 %; Neutrophils # 3.8 K/mcL (1.6-8.9); Red Blood Count 2.61 M/mcL (4.19-5.50); Red Cell Distribution Width 14.3 % (11.5-14.5)
[2018-03-11] MEDS: Insulin LISPRO 300 UNITS/3 ML VIAL SQ SCH ×4 (11:51→20:37)
[2018-03-11] MEDS: Aspirin Enteric Coated 81 MG Tablet PO SCH (11:56)
[2018-03-11] MEDS: Calcium Acetate 667 MG CAPSULE PO SCH ×3 (11:56→17:20)
[2018-03-11] MEDS: Renal Vitamin 1 CAP CAPSULE PO SCH (11:58)
[2018-03-11] MEDS: Lisinopril 20 MG TABLET PO SCH (11:58)
--- NOTE | 2018-03-11 12:15 | Internal Med Progress Note ---
Hospitalist Progress Note - Encounter Date of Encounter: 03/11/18 Time of Encounter: 08:00 - Subjective Interval History: Seen and examined at the bedside 78 M admitted and being managed for fluid overload including new loculated R pleural effusion , R LL consolidation , ascites, He has a PMH of CHFpEF, Cirrhosis, ESRD on HD MWF, DM, Afib, HTN, Hypothyr oidism, Anemia This morning, he reports his shortness of breath has resolved following thoracentesis, he also reports feeling improved abdominal girth following prior sentences. He denies no new complaint Peritoneal fluid workup ruled out SBP, pleural fluid workup is transudative. Is pending liver and gallbladder ultrasound which was scheduled by the computational linguist He still in mild fluid overload - Exam Vitals: Temp Pulse Resp BP Pulse Ox 98.9 F 82 16 147/56 92 03/10/18 23:40 03/10/18 23:40 03/10/18 23:40 03/10/18 23:40 03/10/18 23:40 Exam: GEN:Not in distress, co-operative Head: atraumatic, normocephalic, Eye: normal appearance, PERRL, no scleral icterus, no conjunctival injection ENT: mucous membranes moist, normal external ear exam Neck: normal inspection Respiratory: CTAB Cardiovascular: S1, S2, RRR , no m/g/r Abdomen: soft, distended, no guarding or rebound, BS present Extremities: 1+ piting pedal edema bilaterally Skin: no rash AVF functioning Neuro: Alert and oriented x3 , No gross focal deficits Psych: Patient's affect is normal - Assessment and Plan (1) DVT prophylaxis Current Visit: Yes Status: Acute Assessment and Plan: Heparin SQ (2) Cirrhosis Current Visit: Yes Status: Chronic Assessment and Plan: Hx of alcohol abuse and Hep C Decompensated with ascites and recurrent R hydrothorax s/p paracentensis, transudate, no SBP Liver and Gall bladder USS pending MELD score 22, with pulm HTN and CHFpEF,poor prognosis Hx of endoscopy unknown, patient not on lactulose Consider adding atenolol and add diuretics, patient is on HD, high risk for hyperkalemia with spironolactone Mental status is preserved Follow up with GI as out-patient (3) Atrial fibrillation Current Visit: Yes Status: Chronic Assessment and Plan: HR controlled, not on A/C due to thrombocytopenia Not on BB nor CCB, added propanolol BID for cirrhosis and portal HTN Continue to monitor on tele (4) ESRD (end stage renal disease) on dialysis Current Visit: Yes Status: Chronic Assessment and Plan: On HD, Missed HD on Thursday, 03/08 now on HD MWF Renal team following (5) Pleural effusion Current Visit: Yes Status: Acute Assessment and Plan: Patient reports recurrent pleural effusions requiring thoracentesis; this will be his third thoracentesis in the past month. He presented symptomatic with SOB, though he was not hypoxic (likely due to chronicity of effusuion) He has no symptoms of PNA, however, Chest imaging from outside facility reports consolidation s/p thoracentensis by Pulm 03/10 Multifactorial: ESRD, Hydrothorax from Cirrhosis, HFpEF Per pulm, patient is poor candidate for pleurex and may need more aggressive HD Pleural fluid work up noted, cytology and culture pending No indication for antibiotics, continue to monitor Pulm input appreciated (6) IDDM (insulin dependent diabetes mellitus) Current Visit: Yes Status: Chronic Assessment and Plan: FS ACHS ADA diet SSI (7) Anemia Current Visit: Yes Status: Chronic Assessment and Plan: HB stable at baseline, continue to monitor (8) Diverticulosis Current Visit: Yes Status: Chronic Assessment and Plan: chronic stable, no abdominal symptoms (9) Hypertension Current Visit: Yes Status: Chronic Assessment and Plan: Controlled, continue current medications. (10) Hypothyroidism Current Visit: Yes Status: Chronic Assessment and Plan: continue synthroid TSH ordered and pending. (11) JOSÉ MANUEL (obstructive sleep apnea) Current Visit: Yes Status: Chronic Assessment and Plan: CPAP at bedtime (12) Thrombocytopenia Current Visit: Yes Status: Chronic Assessment and Plan: chronic, stable (13) (HFpEF) heart failure with preserved ejection fraction Current Visit: Yes Status: Chronic Assessment and Plan: Chronic, currently in fluid overload Add Lasix to regimen, patient still makes urine. Continue HD - Time Spent with Patient Total time spent is greater than 50% in coordination of care (as documented) at patient's floor/unit and/or counseling patient: Plan of Care Discussed with: patient Internal Medicine: Result - Labs CBC & Chem 7: 03/10/18 03:06 03/10/18 03:06 Labs: Liver Function 10/17/18 Range/Units 15:21 Albumin 3.2 L (3.5-5.7) g/dL - ABG Interpretation ABG results: PT/INR, D-dimer PT 13.0 Seconds (9.4-12.1) H 03/10/18 03:06 - Impressions Impressions Paracentesis Ultrasound 03/10/18 10:46 IMPRESSION: Successful ultrasound guided paracentesis. D/ / Fam Matt MD / Fam Matt MD Interpreting Provider: Fam Matt MD Chest X-Ray 03/10/18 17:18 IMPRESSION: Mild pulmonary vascular congestion. Stable cardiomegaly. Mild right pleural effusion. No definite pneumothorax. D/ / Ion Rasmussen MD / Ion Rasmussen MD Interpreting Provider: Ion Rasmussen MD Consult Discharge Plan - Plan [facility]errals: [facility] [Primary Care Provider[facility] - (2) Cirrhosis Qualifiers: Hepatic cirrhosis type: alcoholic cirrhosis Ascites presence: with ascites Qualified Code(s): K70.31 - Alcoholic cirrhosis of liver with ascites (3) Atrial fibrillation Qualifiers: Atrial fibrillation type: chronic Qualified Code(s): I48.2 - Chronic atrial fibrillation (7) Anemia Qualifiers: Anemia type: due to chronic kidney disease Chronic kidney disease stage: on chronic dialysis Qualified Code(s): N18.6 - End stage renal disease; D63.1 - Anemia in chronic kidney disease; Z99.2 - Dependence on renal dialysis (8) Diverticulosis Qualifiers: Diverticulosis site: diverticulosis of large intestine (9) Hypertension Qualifiers: Hypertension type: essential hypertension Qualified Code(s): I10 - Essential (primary) hypertension (10) Hypothyroidism Qualifiers: Hypothyroidism type: unspecified Qualified Code(s): E03.9 - Hypothyroidism, unspecified
[2018-03-11 12:21] LABS: Calcium 8.9 mg/dL (8.6-10.3); Potassium 4.6 mEq/L (3.5-5.1)
[2018-03-11] MEDS ORDERED: Furosemide 40 MG TABLET PO SCH (12:30)
--- NOTE | 2018-03-11 12:34 | Pulmonology Progress Note ---
<Stew Jerez - Last Filed: 03/11/18 19:55> Date of Encounter: 03/11/18 Time of Encounter: 10:00 Assessment and Plan (1) Pleural effusion Current Visit: No Status: Acute - -lilely due to his history of cirrhosis causing hepatic hydrothorax and diastolic dysfunction (LVEF of 60%, left atrial dilatation and mildly dilated right ventricle) -patient lights criteris is 0.85 (pleural LDH/seru LDH) suggesting an exudative pleural patholoy. -cytology and culture studies pending. -With his history of recurrent pleural effusions, patient might need a Pleurx catheter as an outpatient. (2) Cirrhosis of liver Current Visit: No Status: Chronic -MELD score. 22 Does not take lactulose or rifaximin at home. -on physical exam he has distended abdomen significant for ascites. Patient is status post paracentesis, no evidence for spontaneous bacterial peritonitis. -TIPS would be contraindicated in this patient given his echographic evidence of primary hypertension. Qualifiers: Hepatic cirrhosis type: unspecified hepatic cirrhosis Ascites presence: without ascites Qualified Code(s): K74.60 - Unspecified cirrhosis of liver (3) Dyspnea Current Visit: No Status: Acute - seems to have resolved. He had dyspne secondary to his R pleural effusion and is currently s/p thoracentesis - currently on 4.5 L satting at 92% Qualifiers: Dyspnea type: dyspnea on exertion Qualified Code(s): R06.09 - Other forms of dyspnea (4) Ascites Current Visit: No Status: Acute -Likely due to his history of cirrhosis. This is secondary to his history of hep C and alcohol abuse 13 years. quit 30 years ago. - s/p paracentesis , drained 250 mL fluid Qualifiers: Qualified Code(s): K70.31 - Alcoholic cirrhosis of liver with ascites (5) ESRD (end stage renal disease) Current Visit: No Status: Chronic -History of end-stage renal disease. -Underwent dialysis this am. Cr 6.71 Subjective Principal diagnosis: dyspnea Interval history: She was seen this morning at the bedside. He endorses he is breathing better with no shortness of breath. He is day one status post right sided thoracentesis. Denies any systemic signs like to fevers, chills. Still appears to be mildly volume overloaded. Objective PUL Vital signs: Last Vital Signs Temp 98.9 F 03/10/18 23:40 Pulse 82 03/10/18 23:40 Resp 16 03/10/18 23:40 BP 147/56 03/10/18 23:40 Pulse Ox 92 03/10/18 23:40 Auscultation: bilateral: clear Cardiovascular: regular rate and rhythm, irregular rhythm Gastrointestinal: soft, non-tender (distended, no guarding or rebound tenderness.) Extremities: edema (+1) Results - Laboratory Findings CBC and BMP: 03/11/18 03:34 03/11/18 03:34 PT/INR, D-dimer PT 13.0 Seconds (9.4-12.1) H 03/10/18 03:06 Abnormal lab findings: Abnormal lab results RBC 3.24 M/mcL (4.19-5.50) L 03/10/18 03:06 Hgb 10.4 g/dL (12.9-16.9) L 03/10/18 03:06 Hct 33.0 % (37.5-50.1) L 03/10/18 03:06 MCV 101.9 fL (83.0-100.0) H 03/10/18 03:06 MCHC 31.5 g/dL (31.6-35.5) L 03/10/18 03:06 Plt Count 95 K/mcL (140-400) L 03/10/18 03:06 Lymphocytes # 0.5 K/mcL (0.6-4.6) L 03/10/18 03:06 PT 13.0 Seconds (9.4-12.1) H 03/10/18 03:06 Carbon Dioxide 30 mEq/L (23-29) H 03/11/18 03:34 BUN 48 mg/dL (8-23) H 03/11/18 03:34 Creatinine 5.37 mg/dL (0.70-1.30) H 03/11/18 03:34 Est GFR ( Amer) 13 (> 60) L 03/11/18 03:34 Est GFR (Non-Af Amer) 10 (> 60) L 03/11/18 03:34 Glucose 148 mg/dL (70-105) H 03/11/18 03:34 POC Glucose 163 mg/dL (70-99) H 03/10/18 20:38 Calculated Osmolality 301 (280-300) H 03/11/18 03:34 Total Bilirubin 0.2 mg/dL (0.3-1.0) L 03/10/18 03:06 Lactate Dehydrogenase 135 Units/L (140-271) L 03/10/18 17:27 Serum Total Protein 6.0 g/dL (6.4-8.9) L 03/10/18 03:06 Albumin 3.2 g/dL (3.5-5.7) L 03/10/18 15:21 Pleural Appearance Cloudy (Clear) A 03/10/18 18:11 Pleural RBC 0.012 M/mcL (0.000-0.002) H 03/10/18 18:11 - Microbiology Findings Microbiology Findings: Microbiology, Last 48 Hours 03/10/18 18:11 Body Fluid Culture - Preliminary Pleural Fluid 03/10/18 03:06 Blood Culture - Preliminary Peripheral Venipuncture Culture is incubating and being continuously monitor ed for growth. Final report to follow. 03/10/18 03:06 Blood Culture - Preliminary Peripheral Venipuncture Culture is incubating and being continuously monitored for growth. Final report to follow. - Clinical Findings Intake & Output: Intake & Output 03/10/18 03/11/18 03/11/18 23:59 07:59 15:59 Output Total 550 / 550 Balance -550 / -550 Weight 111.9 kg Consult Discharge Plan - Plan [facility]errals: [facility] [Primary Care Provider[facility] - <Kimberli Najera - Last Filed: 03/11/18 20:15> Objective PUL Vital signs: Last Vital Signs Temp 98.9 F 03/11/18 16:08 Pulse 79 03/11/18 16:08 Resp 18 03/11/18 16:08 BP 145/68 03/11/18 16:08 Pulse Ox 93 03/11/18 16:08 Results - Laboratory Findings CBC and BMP: 03/11/18 03:34 03/11/18 03:34 PT/INR, D-dimer PT 13.0 Seconds (9.4-12.1) H 03/10/18 03:06 Abnormal lab findings: Abnormal lab results RBC 2.61 M/mcL (4.19-5.50) L 03/11/18 03:34 Hgb 9.8 g/dL (12.9-16.9) L 03/11/18 03:34 Hct 28.0 % (37.5-50.1) L 03/11/18 03:34 MCV 107.3 fL (83.0-100.0) H 03/11/18 03:34 MCH 37.5 pg (28.0-33.3) H 03/11/18 03:34 Plt Count 72 K/mcL (140-400) L 03/11/18 03:34 Platelet Estimate Decreased (Normal) L 03/11/18 03:34 Basophilic Stippling 1+ (Not Present) A 03/11/18 03:34 PT 13.0 Seconds (9.4-12.1) H 03/10/18 03:06 Carbon Dioxide 30 mEq/L (23-29) H 03/11/18 03:34 BUN 48 mg/dL (8-23) H 03/11/18 03:34 Creatinine 5.37 mg/dL (0.70-1.30) H 03/11/18 03:34 Est GFR ( Amer) 13 (> 60) L 03/11/18 03:34 Est GFR (Non-Af Amer) 10 (> 60) L 03/11/18 03:34 Glucose 148 mg/dL (70-105) H 03/11/18 03:34 POC Glucose 163 mg/dL (70-99) H 03/10/18 20:38 Calculated Osmolality 301 (280-300) H 03/11/18 03:34 Total Bilirubin 0.2 mg/dL (0.3-1.0) L 03/10/18 03:06 Lactate Dehydrogenase 135 Units/L (140-271) L 03/10/18 17:27 Serum Total Protein 6.0 g/dL (6.4-8.9) L 03/10/18 03:06 Albumin 3.2 g/dL (3.5-5.7) L 03/10/18 15:21 Pleural Appearance Cloudy (Clear) A 03/10/18 18:11 Pleural RBC 0.012 M/mcL (0.000-0.002) H 03/10/18 18:11 - Microbiology Findings Microbiology Findings: Microbiology, Last 48 Hours 03/10/18 18:11 Body Fluid Culture - Preliminary Pleural Fluid 03/10/18 03:06 Blood Culture - Preliminary Peripheral Venipuncture Culture is incubating and being continuously monitored for growth. Final report to follow. 03/10/18 03:06 Blood Culture - Preliminary Peripheral Venipuncture Culture is incubating and being continuously monitored for growth. Final report to follow. - Attending Attestation I saw and evaluated this patient and my medical decision-making was reviewed with the Resident Physician. I agree with the documented findings, disposition and treatment plan as described except to the extent set forth below. We independently had [id number] contact with the patient Patient seen and examined at bedside Labs, radiology, chart personally reviewed. I discussed in detail regarding this recurrent pleural effusion most likely due to hepatic hydrothorax related to cirrhosis wait for cytology make sure there is no malignancy. Patient said that his group segment consultant at [facility] is already taking maximum fluid off and he cannot tolerate more fluid off through dialysis. I told them this can be a recurrent problem because of his diastolic heart failure and cirrhosis of liver and with Pleurx catheter as an option but with his chronic uremia and his platelets dysfunction and his immunosuppressed state due to cirrhosis Pleurx catheter will not be an option at the moment if he decided to change the goals of care for palliative and comfort at that point we can consider Pleurx catheter otherwise patient will need recurrent thoracentesis please schedule a outpatient follows visit with pulmonology in 4 weeks .
[2018-03-11 12:54] LABS: Platelet Count 72 K/mcL (140-400)
[2018-03-11 12:55] LABS: Basophilic Stippling 1+ (Not Present); Platelet Estimate Decreased (Normal)
[2018-03-11] MEDS: *HR* Heparin 5,000 UNIT/ML VIAL SQ SCH (17:23)
[2018-03-11] MEDS: amLODIPine 5 MG TABLET PO SCH (20:36)
[2018-03-11] MEDS: Latanoprost 2.5 ML BOTTLE RIGHT EYE SCH (20:37)
[2018-03-12] MEDS ORDERED: Insulin LISPRO 300 UNITS/3 ML VIAL SQ ONE (03:31)
[2018-03-12 04:52] LABS: Calcium 8.6 mg/dL (8.6-10.3)
[2018-03-12] MEDS: *HR* Heparin 5,000 UNIT/ML VIAL SQ SCH (05:13)
[2018-03-12 05:52] LABS: Basophils % 0.3 %; Eosinophils # 0.4 K/mcL (0.0-0.6); Eosinophils % 6.6 %; Hematocrit 28.7 % (37.5-50.1); Hemoglobin 9.6 g/dL (12.9-16.9); Immature Granulocytes % 0.5 % (0-4); Immature Platelets 3.4 % (1.1-6.1); Lymphocytes # 0.7 K/mcL (0.6-4.6); Lymphocytes % 11.2 %; Mean Corpuscular HGB Conc 33.4 g/dL (31.6-35.5); Mean Corpuscular Volume 101.8 fL (83.0-100.0); Mean Platelet Volume 11.8 fL (9.4-12.4); Monocytes # 0.4 K/mcL (0.0-1.3); Monocytes % 6.6 %; Neutrophils # 4.4 K/mcL (1.6-8.9); Red Blood Count 2.82 M/mcL (4.19-5.50); Red Cell Distribution Width 13.9 % (11.5-14.5); Segmented Neutrophils % 74.8 %
[2018-03-12 06:59] VITALS: BP 120/47
[2018-03-12 07:07] LABS: Platelet Count 75 K/mcL (140-400)
--- NOTE | 2018-03-12 07:38 | Event Note ---
Date of Encounter: 03/12/18 Time of Encounter: 07:30 Doing well patient can be discharged today on his home oxygen will follow him up in 2 weeks in pulmonology.
[2018-03-12] MEDS ORDERED: levoFLOXacin 500 MG TABLET PO SCH (08:00)
[2018-03-12] MEDS ORDERED: 0.9 % Sodium Chloride 250 ML IVC PRN (08:05)
--- NOTE | 2018-03-12 08:14 | Nephrology Progress Note ---
Date of Encounter: 03/12/18 Time of Encounter: 08:11 - Assessment and Plan (1) ESRD (end stage renal disease) on dialysis Current Visit: Yes Status: Chronic Current regimen is MWF in [place] with Dr. Noriega. HD ordered for today however pt tells me he is going home and will be able to make is 1215 chair time. Avoid nephrotoxins and renal dose. Will order additional UF or HD as needed. (2) Pleural effusion Current Visit: Yes Status: Resolved Per pulm. (3) Cirrhosis Current Visit: Yes Status: Chronic HX or per primary Qualifiers: Hepatic cirrhosis type: alcoholic cirrhosis Ascites presence: with ascites Qualified Code(s): K70.31 - Alcoholic cirrhosis of liver with ascites (4) IDDM (insulin dependent diabetes mellitus) Current Visit: Yes Status: Chronic Per primary. Subjective Principal diagnosis: dyspnea Interval history: Pt seen and examined, doing well. Denies CP/SOB. Denies nausea/vomiting/diarrhea. Objective - Vital Signs Vital signs: Vital Signs Temp Pulse Resp BP Pulse Ox 03/12/18 06:51 98.7 F 65 16 120/47 91 03/12/18 03:44 98.1 F 68 16 109/47 93 03/12/18 00:23 98.5 F 56 16 122/46 95 03/11/18 20:18 97.9 F 72 18 144/59 94 03/11/18 16:08 98.9 F 79 18 145/68 93 Intake and Output 03/11/18 03/12/18 03/12/18 23:59 07:59 15:59 Output Total 200 / 200 150 / 150 Balance -200 / -200 -150 / -150 Output: Urine 200 / 200 150 / 150 Other: Stool Size Moderate Weight 108.318 kg Blood Glucose* 238 182 Patient Weight 03/12/18 23:59 Weight 108.318 kg - General Appearance General appearance: Present: well-developed, well-nourished, obese EENT: Present: ATNC, hearing intact, vision intact Neck: Present: supple Respiratory: Present: clear Cardiology: Present: edema (Tense +1 pitting edema noted to bilat lower extremities.), normal S1, normal S2 Dialysis Vascular Access: Arteriovenous Fistula thrill: Yes bruit: Yes Gastrointestinal: Present: normoactive bowel sounds, no tenderness, no guarding Integumentary: Present: no rash, warm and dry Neurologic: Present: alert and oriented x3 Psychiatric: Present: mood/affect appropriate, cooperative - Lab 03/12/18 04:14 03/12/18 04:14 Most recent lab results Calcium 8.6 mg/dL (8.6-10.3) 03/12/18 04:14 Magnesium 1.8 mg/dL (1.6-2.6) 03/10/18 03:06 Consult Discharge Plan - Plan Instructions: Furosemide (By mouth), Levofloxacin (By mouth), Pleural Effusion (DC) Additional Instructions: Follow up with Pulmonology for pleural fluid cytology follow up and for evaluat ion for pleurex catheter placement vs routine thoracentensis Complete 4 more doses of your antibiotics [facility]errals: [facility] [Primary Care Provider[facility] - 03/17/18 2:30 pm (Please follow up as schedule....) Prescriptions: Furosemide [Lasix] 40 mg PO DAILY #30 tablet levoFLOXacin [Levaquin] 500 mg PO Q48H #4 tablet Propranolol [Inderal] 10 mg PO BID #60 tablet
[2018-03-12] MEDS ORDERED: 0.9 % Sodium Chloride 1,000 ML PRIME SCH (08:15)
[2018-03-12] MEDS: Renal Vitamin 1 CAP CAPSULE PO SCH (08:30)
[2018-03-12] MEDS: Aspirin Enteric Coated 81 MG Tablet PO SCH (08:30)
[2018-03-12] MEDS: Calcium Acetate 667 MG CAPSULE PO SCH (08:30)
[2018-03-12] MEDS: Insulin LISPRO 300 UNITS/3 ML VIAL SQ SCH (08:31)
--- NOTE | 2018-03-12 09:04 | Discharge Summary ---
- NOTES TO OUTPATIENT PROVIDER Notes to Outpatient Provider: 78M with decompensated liver cirrhosis, ESRD, Afib, HTN, Hypothyroidism, who was admitted and managed for R recurrent pleural effusion and suspected Pneumonia. S/P thoracentensis and paracentensis with exudatve pleural effusion and no SBP respectively. Cultures yielded no growth and cytology is pending. His SOB has resolved and he is currently asymptomatic. Patient was recommended to follow up with Pulmonology here but states he has his own [employer] who has drained his R pleural effusion twice in the past 6 weeks. He is educated his R recurrent effusion is likely due to his diastolic heart failure and cirrhosis of liver and he might need repeat thoracentensis. Liver doppler showed moslty normal directional flow in the splenic, main portal, left portal veins, hepatic veins and hepatic artery. The patient did not want to wait to be dialyzed at this facilty and requested to be discharged home promptly on evaluation this morning, so that he can go to his out-pt HD session. Educated about diagnoses and plans of care, verbalized understanding. Discharged with levquin and propanolol. Orders not resulted at time of discharge: Pending orders 03/10/18 Albumin,Body Fluid Routine 03/10/18 03:06 Culture,Blood [BC] Stat 03/10/18 17:44 Cytology Other [PTH] Routine 03/10/18 18:11 Culture,Body Fluid [RM] Routine 03/13/18 04:00 Basic Metabolic Panel AM 0400 CBC no Diff [Complete Blood Count w/o Diff] [HEME] AM 04003/14/18 04:00 Basic Metabolic Panel AM 0400 CBC no Diff [Complete Blood Count w/o Diff] [HEME] AM 04003/15/18 04:00 Basic Metabolic Panel AM 0400 CBC no Diff [Complete Blood Count w/o Diff] [HEME] AM 0400 03/16/18 04:00 Basic Metabolic Panel AM 0400 CBC no Diff [Complete Blood Count w/o Diff] [HEME] AM 04003/17/18 04:00 Basic Metabolic Panel AM 0400 CBC no Diff [Complete Blood Count w/o Diff] [HEME] AM 0400 03/18/18 04:00 Basic Metabolic Panel AM 0400 CBC no Diff [Complete Blood Count w/o Diff] [HEME] AM 0400 Date of Encounter: 03/12/18 Time of Encounter: 09:02 - Discharge Diagnosis (1) DVT prophylaxis Priority: Primary Status: Resolved (2) Cirrhosis Priority: Secondary Status: Chronic Qualifiers: Hepatic cirrhosis type: alcoholic cirrhosis Ascites presence: with ascites Qualified Code(s): K70.31 - Alcoholic cirrhosis of liver with ascites (3) Atrial fibrillation Priority: Secondary Status: Chronic Qualifiers: Atrial fibrillation type: chronic Qualified Code(s): I48.2 - Chronic atrial fibrillation (4) ESRD (end stage renal disease) on dialysis Priority: Secondary Status: Chronic (5) Pleural effusion Priority: Primary Status: Resolved (6) IDDM (insulin dependent diabetes mellitus) Priority: Secondary Status: Chronic (7) Anemia Priority: Secondary Status: Chronic Qualifiers: Anemia type: due to chronic kidney disease Chronic kidney disease stage: on chronic dialysis Qualified Code(s): N18.6 - End stage renal disease; D63.1 - Anemia in chronic kidney disease; Z99.2 - Dependence on renal dialysis (8) Diverticulosis Priority: Secondary Status: Chronic Qualifiers: Diverticulosis site: diverticulosis of large intestine Diverticulosis bleeding: diverticulosis without bleeding Qualified Code(s): K57.30 - Diverticulosis of large intestine without perforation or abscess without bleeding (9) Hypertension Priority: Secondary Status: Chronic Qualifiers: Hypertension type: essential hypertension Qualified Code(s): I10 - Essential (primary) hypertension (10) Hypothyroidism Priority: Secondary Status: Chronic Qualifiers: Hypothyroidism type: unspecified Qualified Code(s): E03.9 - Hypothyroidism, unspecified (11) JOSÉ MANUEL (obstructive sleep apnea) Priority: Secondary Status: Chronic (12) Thrombocytopenia Priority: Secondary Status: Chronic (13) (HFpEF) heart failure with preserved ejection fraction Priority: Secondary Status: Chronic Hospital course: Mr. Betts is a 78 year old male 78M with decompensated liver cirrhosis, ESRD, Afib, HTN, Hypothyroidism, who was admitted and managed for R recurrent pleural effusion and suspected Pneumonia. S/P thoracentensis and paracentensis with exudatve pleural effusion and no SBP respectively. Cultures yielded no growth and cytology is pending. His SOB has resolved and he is currently asymptomatic. Patient was recommended to follow up with Pulmonology here but states he has his own [employer] who has drained his R pleural effusion twice in the past 6 weeks. He is educated his R recurrent effusion is likely due to his diastolic heart failure and cirrhosis of liver and he might need repeat thoracentensis. Liver doppler showed moslty normal directional flow in the splenic, main portal, left portal veins, hepatic veins and hepatic artery. Per Pulmonology, patient is a poor candidate for pleurex placement due to chronic thrombocytopenia, uremia, ESRD and immunosuppressed state awith increased risk for infections He was seen and evaluated this morning, he reports no symptoms The patient did not want to wait to be dialyzed at this facility and requested to be discharged home promptly on evaluation this morning, so that he can go to his out-pt HD session. Educated about diagnoses and plans of care, verbalized understanding. Discharged with levquin and propanolol. Follow up with PCP at [facility] Discharge discussed with: patient, nurse - Time Spent with Patient Total time spent providing and/or coordinating discharge services: Greater than 30 minutes (40 min) - Discharge Medications Prescriptions: Furosemide [Lasix] 40 mg PO DAILY #30 tablet levoFLOXacin [Levaquin] 500 mg PO Q48H #4 tablet Propranolol [Inderal] 10 mg PO BID #60 tablet Home Medications: Insulin ASPART [NovoLOG] 10 unit SQ TIDAC 08/03/15 [History] Lisinopril [Zestril] 20 mg PO DAILY 08/03/15 [History] Renal Vitamin [Renal Caps Softgel] 1 mg PO DAILY 08/03/15 [History] amLODIPine [Norvasc] 5 mg PO HS 08/03/15 [History] Terazosin [Hytrin] 10 mg PO HS 08/31/15 [History] Insulin ASPART [NovoLOG] 5 unit SQ HS 09/02/16 [History] Latanoprost [Xalatan] 1 drop RIGHT EYE HS 02/03/17 [History] Levothyroxine Sodium [Synthroid] 137 mcg PO QAM 02/03/17 [History] Aspirin [Lo-Dose Aspirin EC] 81 mg PO DAILY 10/15/17 [History] Tramadol HCl [Ultram] 50 mg PO DAILY PRN 10/15/17 [History] Calcitriol 0.5 mcg PO MOWEFR 03/10/18 [History] Cinacalcet [Sensipar] 30 mg PO MOWEFR 03/10/18 [History] Fluorouracil [Fluoroplex] 1 appl TP BID 03/10/18 [History] Insulin Glargine [Lantus] 40 unit SQ HS 03/10/18 [History] Furosemide [Lasix] 40 mg PO DAILY #30 tablet 03/12/18 [Rx] Propranolol [Inderal] 10 mg PO BID #60 tablet 03/12/18 [Rx] levoFLOXacin [Levaquin] 500 mg PO Q48H #4 tablet 03/12/18 [Rx] Allergies/Adverse Reactions: Allergy/AdvReac Type Severity Reaction Status Date / Time venom-honey bee Allergy Severe Anaphylaxis Verified 11/03/17 16:14 [bee venom (honey bee)] gabapentin AdvReac See Verified 11/03/17 16:14 Comments isosorbide AdvReac se Verified 11/03/17 16:14 metformin AdvReac KIDNEY Verified 11/03/17 16:14 DAMAGE Date of admission: 03/11/18 12:12 Primary care physician: [facility] Consults: 03/10/18 01:59 Consult to Nephrology [CONS] Routine Consulting Provider: [facility] Svetlana/RAYMOND/KERRIE/BUCK Reason for Consult: dialysis needs Call Completed: No Consult to Pulmonology [CONS] Routine Consulting Provider: [facility] S[facility]lana Reason for Consult: recurrent pleural effusion requiring thoracentesis. Call Completed: No 03/10/18 07:45 Consult to Dialysis [CONS] ONCE 03/12/18 08:15 Consult to Dialysis [CONS] ONCE Discharging clinician: Shashi Koch Anticipated date of discharge: 03/12/18 - Constitutional Vitals: Temp Pulse Resp BP Pulse Ox 98.7 F 65 16 120/47 91 03/12/18 06:51 03/12/18 06:51 03/12/18 06:51 03/12/18 06:51 03/12/18 06:51 General appearance: Present: cooperative, A&O X 3, pleasant, no acute distress, answers questions appropriately Exam: GEN:Not in distress, co-operative Head: atraumatic, normocephalic, Eye: normal appearance, PERRL, no scleral icterus, no conjunctival injection ENT: mucous membranes moist, normal external ear exam Neck: normal inspection Respiratory: CTAB Cardiovascular: S1, S2, RRR , no m/g/r Abdomen: soft, distended, no guarding or rebound, BS present Extremities: 1+ piting pedal edema bilaterally Skin: no rash AVF functioning Neuro: Alert and oriented x3 , No gross focal deficits Psych: Patient's affect is normal - Patient Status Disposition: Home, Self-Care Condition: Fair Functional capacity at discharge: independent ambulation Overall status at discharge: patient is progressing back to baseline - Discharge Instructions Instructions: Furosemide (By mouth), Levofloxacin (By mouth), Pleural Effusion (DC) Follow Up With: [facility] [Primary Care Provider[facility] - 03/17/18 2:30 pm (Please follow up as schedule....) Additional Instructions: Follow up with Pulmonology for pleural fluid cytology follow up and for evaluation for pleurex catheter placement vs routine thoracentensis Complete 4 more doses of your antibiotics - Diet and Activity Activity: resume usual activities as tolerated Diet: diabetic diet, low fat, low cholesterol, low salt diet
[2018-03-12 17:05] LABS: Fluid Source for Albumin PERITONEAL
== END 2018-03-12 11:21 | disposition home or self-care (01) | DRG 432 ==
LOC: 2ANU → SUATTDRO 03-10 00:05
PROVIDERS: ADMIT Pediatrics; ATTEND Internal Medicine